=== PATIENT | male | born 1935 | race Hispanic/Latino ===

== ENCOUNTER 2017-04-10 12:20 | Inpatient (IN) | payer BC, MEDICARE ==
[2017-04-10] MEDS ORDERED: Vancomycin 1gm in NS 250ml 1 GM/250 ML BAG IVPB STA (12:47)
[2017-04-10 13:14] LABS: ADD MANUAL DIFF? NO
[2017-04-10 13:17] LABS: BASO # 0.02 K/mm3 (0.0-2.0); BASO % 0.3 % (0.0-3.0); EOS # 0.1 (0.0-0.7); EOS % 1.4 % (1.5-5.0); GRAN # 5.71 (1.4-6.5); GRAN % 78.1 % (50.0-68.0); HEMATOCRIT 41.8 % (42.0-52.0); LYMPH % 13.2 % (22.0-35.0); MEAN CELL VOLUME 91.9 fL (80.0-105.0); MEAN CORPUSCULAR HEMOGLOBIN 30.5 pg (25.0-35.0); MEAN CORPUSCULAR HGB CONC 33.3 g/dl (31.0-37.0); MEAN PLATELET VOLUME 9.9 fl (7.0-11.0); MONO # 0.5 (0.1-0.6); PLATELET COUNT 239 10^3/uL (120.0-450.0); RED CELL DISTRIBUTION WIDTH 13.4 % (11.5-14.5); WHITE BLOOD COUNT 7.3 10^3/ul (4.5-11.0)
[2017-04-10 13:26] LABS: ALKALINE PHOSPHATASE 110 U/L (38-133); ALT/SGPT 24 U/L (7-56); AST/SGOT 18 U/L (15-59); BLOOD UREA NITROGEN 20 mg/dL (7-21); CALCIUM 9.3 mg/dL (8.4-10.5); CARBON DIOXIDE 27 mmol/L (21-33); CHLORIDE 101 mmol/L (98-107); GFR AFRICAN-AMERICAN > 60; GLUCOSE,RANDOM 299 mg/dL (70-110); POTASSIUM 4.5 mmol/L (3.6-5.0); SODIUM 135 mmol/L (132-148); TOTAL PROTEIN 7.1 g/dL (5.8-8.3)
[2017-04-10 13:28] LABS: INR 1.19 (0.93-1.08); PARTIAL THROMBOPLASTIN TIME 28.7 Seconds (23.7-30.8)
--- NOTE | 2017-04-10 13:42 | ED PDOC ---
Arrival/HPI - General Chief Complaint: Abnormal Skin Integrity Time Seen by Provider: 04/10/17 12:38 Historian: Patient - History of Present Illness Narrative History of Present Illness (Text): 04/10/17 13:10 An 81 year old male, whose past medical history includes diabetes, presents to the emergency department with infected right index finger for the last 2 weeks. Patient notes cut finger but didn't have it checked out or taken care of. Patient reports increased redness and drainage. Patient denies any other complaints at this time. Time/Duration: Other (2 weeks) Symptom Onset: Sudden Symptom Course: Unchanged Context: Home Past Medical History - Provider Review Nursing Documentation Reviewed: Yes - Infectious Disease Hx of Infectious Diseases: None - Tetanus Immunization Tetanus Immunization: Unknown - Cardiac Hx Cardiac Disorders: Yes Hx Cardiac Arrhythmia: Yes (AFIB) Hx Pacemaker: No - Neurological Hx Paralysis: No - Endocrine/Metabolic Hx Diabetes Mellitus Type 2: Yes - Hematological/Oncological Hx Blood Transfusions: No Hx Blood Transfusion Reaction: No - Musculoskeletal/Rheumatological Hx Musculoskeletal Disorders: No - Psychiatric Hx Depression: No Hx Emotional Abuse: No Hx Physical Abuse: No Hx Substance Use: No - Anesthesia Hx Anesthesia: Yes Hx Anesthesia Reactions: No Hx Malignant Hyperthermia: No - Suicidal Assessment Feels Threatened In Home Enviroment: No Family/Social History - Physician Review Nursing Documentation Reviewed: Yes Family/Social History: No Known Family HX Smoking Status: Former Smoker Hx Alcohol Use: No Hx Substance Use: No Hx Substance Use Treatment: No Allergies/Home Meds Allergies/Adverse Reactions: Allergies No Known Allergies Allergy (Verified 04/10/17 12:22) Home Medications: Home Meds Medication Instructions Recorded Confirmed Glyburide/Metformin HCl 1 tab PO BID 03/03/13 04/10/17 [Glyburide/Metformin 5 mg-500 mg] Aspirin [Aspir 81] 81 mg PO PRN PRN 05/14/13 04/10/17 Metoprolol Succinate 50 mg PO DAILY 05/14/13 04/10/17 Apixaban [Eliquis] 5 mg PO BID 05/25/16 04/10/17 Lisinopril/Hydrochlorothiazide 1 tab PO DAILY 05/25/16 04/10/17 [Lisinopril-Hctz 20-25 mg Tab] Physical Exam - Physical Exam Narrative Physical Exam (Text): 04/10/17 13:43 - Review of Systems Constitutional: Normal. absent: Fatigue, Weight Change, Fevers Eyes: Normal ENT: Normal Respiratory: Normal absent: SOB, Cough, Sputum Cardiovascular: Normal absent: Chest pain, Palpitations, Syncope Gastrointestinal: Normal absent: Abdominal pain, Diarrhea, Nausea, Vomiting Genitourinary: Normal. absent: Dysuria, Frequency, Hematuria Musculoskeletal: Normal. absent: Arthralgias, Back Pain, Neck Pain Skin: infected right index finger, redness and drainage Neurological: Normal absent: Focal Weakness Endocrine: Normal Hemo/Lymphatic: Normal Psychiatric: Normal - Physical exam Patient appears age appropriate, speaking full sentences without difficulty - Systems Exam Head: Present: Atraumatic, Normocephalic Pupils: Present: PERRL Extraocular Muscles: Present: EOMI Conjunctiva: Present: Normal Mouth: Present: Moist Mucous Membranes Neck: Present: Normal Range of Motion. No: MIDLINE TENDERNESS, Paraspinal Tenderness Respiratory/Chest: Present: Clear to Auscultation, Good Air Exchange. No: Respiratory Distress, Accessory Muscle Use, Tachypnic Cardiovascular: Present: Regular Rate and Rhythm, Normal S1, S2, Peripheral Pulses Present. No: Murmurs Abdomen: Present: Normal Bowel Sounds, No: Tenderness, Peritoneal Signs, Rebound, Guarding, Distention Back: Present: Normal Inspection. No: Midline Tenderness, Paraspinal Tenderness Upper Extremity: Present: Normal Inspection. No: Cyanosis, Edema Lower Extremity: Present: Normal Inspection. No: Edema Neurological: Present: GCS=15, Speech Normal, cranial nerves II through XII fully intact with no cerebellar abnormality, neuro-sensory fully intact. No focal neurological deficits. Skin: Present: right index digit with distal phalanx diffuse fluctuance and drainage, no nail bed involvement, no pain or tenderness along flexor or extensor tendons, full active and passive ROM, 5/5 strength. No: Rashes Lymphatic: Present: OX3, NI, NC Psychiatric: Present: Alert, Oriented x 3, Normal Insight, Normal Concentration Vital Signs Reviewed: Yes Vital Signs Temp Pulse Resp BP Pulse Ox 04/10/17 14:37 76 18 150/81 98 04/10/17 13:05 97.4 F L 56 L 18 166/78 H 97 04/10/17 12:23 98.0 F 99 H 19 166/78 H 99 Temperature: Afebrile Blood Pressure: Hypertensive Pulse: Regular Respiratory Rate: Normal Appearance: Positive for: Well-Appearing, Non-Toxic, Comfortable Pain Distress: None Mental Status: Positive for: Alert and Oriented X 3 Medical Decision Making ED Course and Treatment: 04/10/17 13:38 Impression: An 81 year old male with infected right index finger. On physical exam, right index digit with distal phalanx diffuse fluctuance and drainage, no nail bed involvement, no pain or tenderness along flexor or extensor tendons, full active and passive ROM, 5/5 strength. Differential Diagnosis included but are not limited to: osteomyelitis Plan: -- Radiology Right hand 2nd digit -- MRI upper extremity -- labs -- Vancomycin -- Reassess and disposition Prior Visits: Notes and results from previous visits were reviewed. Patient last reported to the emergency department on 06/10/13 for evaluation of urinary retention. Progress Notes: Patient is aware that he will be admitted for surgical evaluation. Patient was seen by PMD Dr. Alfaro, who accepts patient under her service. Asked to take MRI to rule out osteomyelitis and to call Dr. Graves. Patient does not want pain medications at this time. Right Index finger radiographs Creator : Sheri Blackwood MD 04/10/2017 14:29 IMPRESSION: No acute fracture or dislocation. 04/10/17 14:40 pt refused MRI, states does not want sedatives and will not do it no callback from Dr. Graves yet glucose elevated, fluids ordered pt agrees with being admitted to the hospital Case discussed with Dr. Washington, who is aware Dr. Graves hasn't called back. Spoke with him and Dr. Linden Washington will be on consult. Dr. Washington will see patient tomorrow. - Lab Interpretations Lab Results: 04/10/17 13:05 04/10/17 13:05 Lab Results 04/10/17 13:05: Sodium 135, Potassium 4.5, Chloride 101, Carbon Dioxide 27, Anion Gap 12, BUN 20, Creatinine 1.0, Est GFR ( Amer) > 60, Est GFR (Non- Af Amer) > 60, Random Glucose 299 H, Calcium 9.3, Total Bilirubin 1.0, AST 18, ALT 24, Alkaline Phosphatase 110, Total Protein 7.1, Albumin 3.5, Globulin 3.6, Albumin/Globulin Ratio 1.0 L 04/10/17 13:05: PT 12.9 H, INR 1.19 H, APTT 28.7 04/10/17 13:05: WBC 7.3, RBC 4.55, Hgb 13.9 L, Hct 41.8 L, MCV 91.9, MCH 30.5, MCHC 33.3, RDW 13.4, Plt Count 239, MPV 9.9, Gran % 78.1 H, Lymph % (Auto) 13.2 L, Van Zandt % (Auto) 7.0 H, Eos % (Auto) 1.4 L, Baso % (Auto) 0.3, Gran # 5.71, Lymph # 1.0 L, [place]t # 0.5, Eos # 0.1, Baso # 0.02 I have reviewed the lab results: Yes - RAD Interpretation Radiology Orders: 04/10/17 12:47 HAND RIGHT 2ND DIGIT (FINGER) [RAD] Stat 04/10/17 15:20 EXT UPPER W/O CONTRAST RIGHT [CT] Stat - Medication Orders Current Medication Orders: Sodium Chloride (Sodium Chloride 0.9%) 1,000 mls @ 1,000 mls/hr IV .Q1H STA Stop: 04/10/17 15:32 Last Admin: 04/10/17 14:40 Dose: 1,000 mls/hr Discontinued Medications Vancomycin HCl (Vancomycin 1gm) 1 gm in 250 mls @ 133.333 mls/hr IVPB STAT STA PRN Reason: Protocol Stop: 04/10/17 14:39 Last Admin: 04/10/17 13:10 Dose: 133.333 mls/hr - Scribe Statement The provider has reviewed the documentation as recorded by the Jaycee Cox Provider Scribe Attestation: All medical record entries made by the Scribcarrie were at my direction and personally dictated by me. I have reviewed the chart and agree that the record accurately reflects my personal performance of the history, physical exam, medical decision making, and the department course for this patient. I have also personally directed, reviewed, and agree with the discharge instructions and disposition. Disposition/Present on Arrival - Present on Arrival Any Indicators Present on Arrival: No History of DVT/PE: No History of Uncontrolled Diabetes: No Urinary Catheter: No History of Decub. Ulcer: No History Surgical Site Infection Following: None - Disposition Have Diagnosis and Disposition been Completed?: Yes Diagnosis: Finger infection Disposition: HOSPITALIZED Disposition Time: 13:10 Patient Plan: Admission Patient Problems: Current Active Problems Problem Status Onset Finger infection Acute Condition: FAIR Referrals: Melissa Alfaro MD [Primary Care Provider] - Follow up with primary
--- NOTE | 2017-04-10 14:26 | RAD ---
PROCEDURE: Right Index finger radiographs. HISTORY: pain, infection COMPARISON: None. TECHNIQUE: AP radiograph of the right hand, as well as spot oblique and lateral images of index finger were obtained. FINDINGS: RIGHT INDEX FINGER: Normal right index finger, without fracture or focal lesion. Remainder of the right hand (as seen on the AP view) grossly intact. 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 SOFT TISSUES: There is mild soft tissue swelling in the distal 2nd finger. OTHER FINDINGS: None. IMPRESSION: No acute fracture or dislocation.
[2017-04-10] MEDS ORDERED: Sodium Chloride 0.9% 1,000 ML IV STA (14:33)
[2017-04-10] MEDS ORDERED: Non Formulary Medication (Glyburide/Metformin Hcl [Glyburide-Metformin 5-500 Mg] 1 TAB) PO SCH (18:15)
[2017-04-10] MEDS: Vancomycin 1gm in NS 250ml 1 GM/250 ML BAG IVPB SCH (18:40)
--- NOTE | 2017-04-10 18:56 | CT ---
EXAM: CT Right Upper Extremity Without Intravenous Contrast, Hand CLINICAL HISTORY: The patient age is 81 years old and is male; Signs and symptoms; Other: Infection to right 2nd digit; Additional info: Bettina Cole, infection Facility exam id and description: Ct extupsr ext upper w/o contrast right TECHNIQUE: Axial computed tomography images of the right hand without intravenous contrast. This CT exam was performed using one or more of the following dose reduction techniques: automated exposure control, adjustment of the mA and/or kV according to patient size, and/or use of iterative reconstruction technique. Coronal and sagittal reformatted images were created and reviewed. EXAM DATE/TIME: 04/10/2017 3:20 PM COMPARISON: CR - HAND RIGHT 2ND DIGIT (FINGER) 04/10/2017 1:26:26 PM FINDINGS: Bones/joints: There is mild widening of the scapholunate joint space, suggestive of ligamentous injury. No definitive erosive changes are identified involving the second digit. Hypertrophic degenerative changes are identified at the second through fifth DIP joints. Hypodense cysts are visualized within the first and third metacarpal heads. Within the third metacarpal head, this measures 1.0 x 0.6 x 0.6 cm. Hypertrophic degenerative changes are identified involving the first and third metacarpal heads. Soft tissues: There is a tissue swelling of the second digit, consistent with cellulitis in the appropriate clinical setting. There is a tiny defect or erosion of the soft tissues at the lateral aspect of the second digit. There is a small calcification or foreign body at the skin surface of the palmar lateral hand measuring 0.[address] is limited for the evaluation of the ligaments and tendons. Other findings: Scattered tiny calcifications or ossicles are identified. IMPRESSION: 1. There is a tissue swelling of the second digit, consistent with cellulitis in the appropriate clinical setting. There is a tiny defect or erosion of the soft tissues at the lateral aspect of the second digit. 2. There is mild widening of the scapholunate joint space, suggestive of ligamentous injury. 3. There is a small calcification or foreign body at the skin surface of the palmar lateral hand measuring 0.3 x 0.1 cm. 4. No definitive erosive changes are identified involving the second digit. To exclude osteomyelitis, MRI with/without contrast is recommended. 5. Additional CT findings described above.
[2017-04-10] MEDS ORDERED: Povidone Iodine Topical 10% Sol TOP ONE (20:35)
--- NOTE | 2017-04-10 21:30 | HP ---
HISTORY OF PRESENT ILLNESS: The patient is an 81-year-old who states almost a week ago he got to a c ut on his right index finger. He did not pay much attention, thought it was going to get better, did not really take care of it. The patient is a poorly controlled diabetic. He states yesterday he st arted to see swelling to the area and that it became painful. He denies any fever or chills. No his tory of nausea or vomiting. PAST MEDICAL HISTORY: 1. Significant for chronic atrial fibrillation. 2. Non-insulin dependent diabetes. 3. Morbid obesity. 4. History of CA, status post resection. 5. History of coronary artery disease, status post angioplasty. 6. Nephrolithiasis, had urosepsis 2 years ago. 7. Hypertension. ALLERGIES: Not allergic to any medications. MEDICATIONS AT HOME: He is on lisinopril 20 mg daily, metformin 500 twice a day, glyburide 10 mg twi ce a day. He is on Eliquis 5 mg twice a day, aspirin 81 daily, metoprolol 50 mg daily. SOCIAL HISTORY: He is single, lives by himself. He used to be a heavy smoker in the past. Denies a lcohol use. REVIEW OF SYSTEMS: Significant for right index finger pain and swelling. The feels fine. PHYSICAL EXAMINATION: GENERAL: She is awake and alert, communicative. VITAL SIGNS: He is afebrile, pulse 80, respirations 16, blood pressure 122/96. LUNGS: Bilateral fair airflow, no rhonchi or crackle. HEART: S1, S2 audible. ABDOMEN: Soft, nontender, no rebound, no guarding. NEUROLOGIC: The patient is awake and alert, communicative. RIGHT HAND: His index finger is swollen distally from the interphalangeal joint up to the tip of the finger with erythema and induration. LABORATORY DATA: WBC , hemoglobin 13.9, hematocrit 41.8, platelet of 239. PT 12.9, INR 1.19. Chemistry: Sodium 135, potassium 4.5, chloride 101, CO2 27, BUN 20, creatinine 1.0, blood sugar ____ _. LFTs are within normal limits. IMAGING: X-ray of the hand: No fracture or dislocation. CT scan of the hand is pending. The patie nt refused to have MRI done. ASSESSMENT: 1. Right index finger cellulitis. 2. Non-insulin dependent diabetes. 3. Hypertension. 4. Hyperlipidemia. 5. Coronary artery disease. PLAN: Will apply Bactroban to the wound. Will start him on IV antibiotic. Will continue him on his Eliquis. Monitor blood sugar and ID consult by Dr. Callejas has been requested. Surgical consult by Dr. Suazo has been requested. Melissa Alfaro MD cc: [phone] TT: 04/10/2017 21:29:19 thomas
[2017-04-10 21:39] VITALS: BMI 34.9
[2017-04-10] MEDS ORDERED: Pneumococcal 23-Valent Vaccine IM ONE (21:39)
[2017-04-10] MEDS ORDERED: TDAP Vaccine 0.5 mL Syr IM ONE (22:08)
[2017-04-10] MEDS ORDERED: Tetanus Immune Globulin 250 Units Inj IM ONE (22:08)
--- NOTE | 2017-04-10 22:08 | CP.PCM.CON ---
History of Present Illness - History of Present Illness History of Present Illness: General Surgery consult note for Dr. Suazo Consulted for: abscess Right index finger Patient is an 81M with PMH of NIDDM and afib who is on eliquis who came to the ER with a swollen, painful finger for 10 days. Patient stated that he thinks he sustained a paper cut on his lateral right distal index finger 2 weeks ago, but didn't clean it or treat it with any antibiotic ointment. He noticed it getting red and swollen and more painful around the in a few days later. Today the patient noticed that the swelling has spread to the dorsal side of this finger near the finger nail and decided he [facility]. Patient states that the laceration has been draining pus and blood for a few days. Patient denies any fevers, chills, SOB, numbness, tingling, or paralysis in the finger or hand. Patient does not remember when he last had a tetanus shot. Patient refused to submit to the MRI, so a CT of the hand was takent PMH: NIDDM, afib PSH: none ALL: none Patient is afebrile, vital signs are stable WBC wnl XR of the right hand did not show any foreign bodies in the right second digit CT of the hand showed cellulitis of the distal second digit of the right hand but no sign osteomyolitis or tendon involvement Review of Systems - Review of Systems All systems: reviewed and no additional remarkable complaints except (as per HPI ) - Constitutional Constitutional: As Per HPI - Cardiovascular Cardiovascular: absent: Chest Pain, Chest Pain at Rest, Dyspnea - Respiratory Respiratory: absent: Cough, Dyspnea, Wheezing - Gastrointestinal Gastrointestinal: absent: Abdominal Pain, Nausea, Vomiting - Genitourinary Genitourinary: Hematuria - Musculoskeletal Musculoskeletal: As Per HPI. absent: Muscle Weakness - Integumentary Integumentary: As Per HPI, Wounds (as per HPI). absent: Rash - Neurological Neurological: As Per HPI Past Patient History - Infectious Disease Hx of Infectious Diseases: None - Tetanus Immunizations Tetanus Immunization: Unknown - Past Medical History & Family History Past Medical History?: Yes - Past Social History Smoking Status: Former Smoker - CARDIAC Hx Cardiac Disorders: Yes (cad) Hx Cardia Arrhythmia: Yes (AFIB) Hx Pacemaker: No Hx Peripheral Edema: Yes (ble +1 pitting) - NEUROLOGICAL Hx Paralysis: No - RENAL Hx Kidney Stones: Yes (lithotripsy [facility]) - ENDOCRINE/METABOLIC Hx Diabetes Mellitus Type 2: Yes - HEMATOLOGICAL/ONCOLOGICAL Hx Blood Transfusions: No Hx Blood Transfusion Reaction: No - INTEGUMENTARY Other/Comment: discolored legs - MUSCULOSKELETAL/RHEUMATOLOGICAL Hx Falls: No - GENITOURINARY/GYNECOLOGICAL Hx Genitourinary Disorders: Yes (frequency, bladder stone) Hx Hematuria: Yes (3 or 4 yrs ago) Hx Prostate Problems: Yes (prostate obstruction) Other/Comment: cysto 2012 - PSYCHIATRIC Hx Substance Use: No - SURGICAL HISTORY Hx Surgeries: Yes (EXC LESION RIGHT ARM) Other/Comment: turp green light laser - ANESTHESIA Hx Anesthesia: Yes Hx Anesthesia Reactions: No Hx Malignant Hyperthermia: No Meds Allergies/Adverse Reactions: Allergies Allergy/AdvReac Type Severity Reaction Status Date / Time No Known Allergies Allergy Verified 04/10/17 12:22 - Medications Medications: Current Medications Apixaban (Eliquis) 5 mg PO BID DAVID PRN Reason: Protocol Last Admin: 04/10/17 18:46 Dose: 5 mg Aspirin (Ecotrin) 81 mg PO DAILY [facility] Glyburide (Micronase) 5 mg PO 0800,1700 [facility] Vancomycin HCl (Vancomycin 1gm) 1 gm in 250 mls @ 167 mls/hr IVPB Q12H DAVID PRN Reason: Protocol Last Admin: 04/10/17 18:40 Dose: Not Given Piperacillin Sod/Tazobactam Sod (Zosyn 3.375 In Ns 100ml) 100 mls @ 200 mls/hr IVPB Q8 DAVID PRN Reason: Protocol Stop: 04/11/17 06:29 Insulin Human Lispro (Humalog Med) 0 units SC ACHS DAVID PRN Reason: Protocol Metformin HCl (Glucophage) 500 mg PO 0800,1700 [facility] Metoprolol Succinate (Toprol Xl) 50 mg PO DAILY [facility] Mupirocin (Bactroban Ointment) 0 gm TOP BID [facility] Physical Exam - Constitutional Appears: Well, Non-toxic, No Acute Distress - Head Exam Head Exam: ATRAUMATIC, NORMOCEPHALIC - Eye Exam Eye Exam: Normal appearance. absent: Conjunctival injection, Scleral icterus - ENT Exam ENT Exam: Mucous Membranes Moist, Normal Oropharynx - Respiratory Exam Respiratory Exam: NORMAL BREATHING PATTERN. absent: Accessory Muscle Use, Respiratory Distress - Cardiovascular Exam Cardiovascular Exam: RRR - GI/Abdominal Exam GI & Abdominal Exam: absent: Distended - Expanded Upper Extremities Exam Right General: laceration (3mm laceration in the thenar side of the distal 2nd digit of the right hand. Subcutaneous fluid/blood appreciated with fluctuance from the dorsal surfance just proximal to the nail extending circumferentially 2/3's fo the finger to the volar surface. Erythema well demarcated on and limited distal to DIP joint. Sero-purulent drainage expressible from the laceration. ROM mildly limited on flexion d/t swelling but extension intact, normal strength against resistence) Vascular exam: radial pulse, ulnar pulse, normal capillary refill. absent: pallor, pulse deficit brachial art, pulse deficit radial art - Neurological Exam Neurological exam: Alert, Oriented x3 - Psychiatric Exam Psychiatric exam: Normal Affect, Normal Mood - Skin Skin Exam: Dry, Normal Color, Warm Additional comments: see upper extremity exam Results - Vital Signs Recent Vital Signs: Last Vital Signs Temp 98 F 04/10/17 21:31 Pulse 80 04/10/17 21:31 Resp 16 04/10/17 21:31 BP 122/96 H 04/10/17 21:31 Pulse Ox 99 04/10/17 16:54 - Labs Result Diagrams: 04/10/17 13:05 04/10/17 13:05 Assessment & Plan - Assessment and Plan (Free Text) Assessment: 81M with PMH of diabetes with abcess/hematoma of right index finger for 10days afebrile, normocardic WBC wnl CT: no sign of osteomyelitis or tendonitis Plan: performed a bedside I&D of the abscess with sero-purulent output continue antibiotics per ID recommendations f/u wound culture results soak in betadine solution in the morning f/u labs and vitals Will re-assess in the AM Patient discussed with Dr. Suazo Thank you for this consult Rosa Brady, PGY1
[2017-04-10] MEDS: Insulin Lispro (humaLOG) MEDIUM Coverage SC SCH (22:30)
[2017-04-10] MEDS: Piperacillin/Tazobact 3.375 gm 100 ML IVPB SCH (22:33)
--- NOTE | 2017-04-11 00:54 | PCM.PROC ---
- Incision & Drainage Of Abscess Prep Used: Sterile Water, Betadine Procedure: Drained Pus, Irrigated Cavity W/Saline (with betadine-NS solution), Probed To Break Up Loculations (dorsal extension of right distal second finger abscess pierced with an 18guage needle just deep to the epidermis x3. Laceration on the lateral aspect of the finger was extended with scissors just below the epidermis towards the palmar and dorsal surface until all subcutaneous fluid collections were drained), Cultures Obtained And Sent To Lab
[2017-04-11] MEDS: Piperacillin/Tazobact 3.375 gm 100 ML IVPB SCH (05:29)
[2017-04-11] MEDS: Vancomycin 1gm in NS 250ml 1 GM/250 ML BAG IVPB SCH (05:31)
[2017-04-11 07:07] LABS: ADD MANUAL DIFF? NO
[2017-04-11 07:12] LABS: BASO # 0.01 K/mm3 (0.0-2.0); BASO % 0.1 % (0.0-3.0); EOS # 0.1 (0.0-0.7); EOS % 1.3 % (1.5-5.0); GRAN # 6.23 (1.4-6.5); GRAN % 79.2 % (50.0-68.0); HEMATOCRIT 40.5 % (42.0-52.0); LYMPH % 12.5 % (22.0-35.0); MEAN CELL VOLUME 90.8 fL (80.0-105.0); MEAN CORPUSCULAR HGB CONC 33.1 g/dl (31.0-37.0); MEAN PLATELET VOLUME 9.3 fl (7.0-11.0); MONO # 0.5 (0.1-0.6); MONO % 6.9 % (1.0-6.0); PLATELET COUNT 231 10^3/uL (120.0-450.0); RED CELL DISTRIBUTION WIDTH 13.4 % (11.5-14.5); WHITE BLOOD COUNT 7.9 10^3/ul (4.5-11.0)
[2017-04-11 07:22] LABS: ALKALINE PHOSPHATASE 81 U/L (38-133); ALT/SGPT 30 U/L (7-56); AST/SGOT 18 U/L (15-59); BILIRUBIN,TOTAL 0.7 mg/dL (0.2-1.3); BLOOD UREA NITROGEN 17 mg/dL (7-21); CARBON DIOXIDE 25 mmol/L (21-33); CHLORIDE 104 mmol/L (95-110); GFR AFRICAN-AMERICAN > 60; GLUCOSE,RANDOM 76 mg/dL (70-110); POTASSIUM 3.6 mmol/L (3.6-5.0); SODIUM 138 mmol/L (132-148); TOTAL PROTEIN 6.8 g/dL (5.8-8.3)
[2017-04-11] MEDS: Insulin Lispro (humaLOG) MEDIUM Coverage SC SCH ×4 (09:51→22:31)
[2017-04-11] MEDS: Metoprolol Succinate 50 mg XL Tab PO SCH (10:03)
--- NOTE | 2017-04-11 11:00 | CP.PCM.PN ---
Subjective - Date & Time of Evaluation Date of Evaluation: 04/11/17 Time of Evaluation: 06:48 - Subjective Subjective: Erick Hollins D.O. PGY-1, General Surgery Progress Note: Dr. Lakeisha Harris. 81 year old male with a PMH of NIDDM and A-fib (on eliquis) who presented for a swollen, painful finger for 10 days duration. Patient was seen and examined at bedside with surgery team. Patient at this time states that his finger is doing much, much better and he is happy that he came in. Patient at this time denies any N/V/C/D/fevers/chills or any other complaints other than some mild pain to the finger which is well controlled on his current pain regimen. Objective - Vital Signs/Intake and Output Vital Signs (last 24 hours): Temp Pulse Resp BP Pulse Ox 97.8 F 60 20 148/93 H 97 04/11/17 08:54 04/11/17 08:54 04/11/17 08:54 04/11/17 08:54 04/11/17 08:54 Intake and Output: 04/11/17 04/11/17 06:59 18:59 Intake Total 630 Balance 630 - Medications Medications: Current Medications Acetaminophen (Tylenol 325mg Tab) 650 mg PO Q6H PRN PRN Reason: Pain, moderate (4-7) Apixaban (Eliquis) 5 mg PO BID DAVID PRN Reason: Protocol Last Admin: 04/11/17 10:03 Dose: 5 mg Aspirin (Ecotrin) 81 mg PO DAILY [facility] Last Admin: 04/11/17 10:03 Dose: 81 mg Glyburide (Micronase) 5 mg PO 0800,1700 [facility] Last Admin: 04/11/17 10:03 Dose: 5 mg Ceftaroline Fosamil 400 mg/ (Sodium Chloride) 100 mls @ 100 mls/hr IVPB Q12 DAVID PRN Reason: Protocol Stop: 04/18/17 06:47 Last Admin: 04/11/17 10:11 Dose: 100 mls/hr Insulin Human Lispro (Humalog Med) 0 units SC ACHS DAVID PRN Reason: Protocol Last Admin: 04/11/17 09:51 Dose: Not Given Metformin HCl (Glucophage) 500 mg PO 0800,1700 [facility] Last Admin: 04/11/17 10:03 Dose: 500 mg Metoprolol Succinate (Toprol Xl) 50 mg PO DAILY [facility] Last Admin: 04/11/17 10:03 Dose: 50 mg Mupirocin (Bactroban Ointment) 0 gm TOP BID [facility] Last Admin: 04/11/17 10:02 Dose: Not Given - Labs Labs: 04/11/17 06:40 04/11/17 06:40 PT 12.9 Seconds (9.9-11.8) H 04/10/17 13:05 INR 1.19 (0.93-1.08) H 04/10/17 13:05 APTT 28.7 Seconds (23.7-30.8) 04/10/17 13:05 - Constitutional Appears: Well developed, Non-toxic, No Acute Distress - Head Exam Head Exam: ATRAUMATIC, NORMOCEPHALIC - Eye Exam Eye Exam: Normal appearance. absent: Conjunctival injection, Scleral icterus - ENT Exam ENT Exam: Mucous Membranes Moist, Normal Oropharynx - Respiratory Exam Respiratory Exam: NORMAL BREATHING PATTERN. absent: Accessory Muscle Use, Respiratory Distress - Cardiovascular Exam Cardiovascular Exam: RRR - GI/Abdominal Exam GI & Abdominal Exam: absent: Distended - Expanded Upper Extremities Exam Right General: ~4mm laceration in the thenar side of the distal 2nd digit of the right hand with some subcutaneous tissue visualized, some pus is expressible, mild erythema and swelling of the surrounding area, areas previously marked - Neurological Exam Neurological exam: Alert, Oriented x3 - Skin Skin Exam: Dry, Normal Color, Warm, refer to RUE exam for abnormalities Assessment and Plan - Assessment and Plan (Free Text) Assessment: 81 year old male with a PMH of NIDDM and A-fib (on eliquis) who presented with an abscess on his right index finger s/p laceration with paper. Plan: Cont IV abx Cont pain control Will do TID diluted betadine solution finger soaks for 15 minutes then re- wrapping WCx pending, will follow Afebrile with no leukocytosis Other management per primary team Will discuss with attending physician. Thank you for the pleasure of participating in the care of this patient.
--- NOTE | 2017-04-11 14:49 | PN ---
DATE: 04/11/2017 SUBJECTIVE: The patient is 81 years old, seen and examined, lying in bed, seems to be very comfortab le. He said his throbbing pain in the finger has almost gone. PHYSICAL EXAMINATION: VITAL SIGNS: He is afebrile, pulse 60, respirations 20, blood pressure 148/93. LUNGS: Bilateral fair airflow. No rhonchi or crackle. HEART: S1, S2 audible. ABDOMEN: Soft, obese, nontender. No rebound, no guarding. NEUROLOGIC: He is awake, and alert, able to communicate. LABORATORY EXAMINATION: WBC 7.9, hemoglobin 13.4, hematocrit 40.5, platelets of 231. Chemistry: So dium 138, potassium 3.6, chloride 104, CO2 of 25, BUN 17, creatinine 1.0, blood sugar of 76. ASSESSMENT AND PLAN: 1. Right index finger cellulitis, status post incision and drainage. 2. Non-insulin dependent diabetes. 3. Hypertension. 4. Morbid obesity. 5. Chronic atrial fibrillation. The patient had incision and drainage done. Currently, he is on Teflaro. Blood sugar seems to be un danny decent control, so is the blood pressure. So we will continue local wound care, as per surgical team. Will continue on Eliquis. He is on metformin 500 twice a day and glyburide 5 mg twice a day. We will continue that. We will continue Teflaro, and reevaluate the patient in a.m. Melissa Alfaro MD cc: [phone] TT: 04/11/2017 14:49:15 Confirmation # [id number] Dictation # [id number] cortez
[2017-04-11] MEDS ORDERED: Lidocaine 1% Inj (20ml) IJ STA (14:54)
--- NOTE | 2017-04-11 18:53 | CP.PCM.CON ---
History of Present Illness - History of Present Illness History of Present Illness: 81 year old male with PMH of DM, atrial fibrillation, obesity with BMI 35 came in to [facility] complaining of right hand 2nd digit pain and swelling which was progressively worsening over a week. He states that he sustained a papercut and did not mind it and was not able to clean and sterilize the wound. Over the next few days, he noticed swelling and erythema and pain. The patient denies animal contacts, denies soiling his finger. He denies fever or chills, no nausea or vomiting, no chest pain, no SOB, no headache or dizziness, no abdominal pain, no diarrhea, no dysuria. In the ED, CT of the hand showed cellulitis of the finger. Last night, the patient underwent bedside incision and drainage as done by surgery and pus was sent for cultures. Infectious diseases consult is requested to further evaluate and manage. Review of Systems - Review of Systems All systems: reviewed and no additional remarkable complaints except (as per HPI ) Past Patient History - Infectious Disease Hx of Infectious Diseases: None - Tetanus Immunizations Tetanus Immunization: Unknown - Past Medical History & Family History Past Medical History?: Yes - Past Social History Smoking Status: Former Smoker - CARDIAC Hx Cardiac Disorders: Yes (cad) Hx Cardia Arrhythmia: Yes (AFIB) Hx Pacemaker: No Hx Peripheral Edema: Yes (ble +1 pitting) - NEUROLOGICAL Hx Paralysis: No - RENAL Hx Kidney Stones: Yes (lithotripsy [facility]) - ENDOCRINE/METABOLIC Hx Diabetes Mellitus Type 2: Yes - HEMATOLOGICAL/ONCOLOGICAL Hx Blood Transfusions: No Hx Blood Transfusion Reaction: No - INTEGUMENTARY Other/Comment: discolored legs - MUSCULOSKELETAL/RHEUMATOLOGICAL Hx Falls: No - GENITOURINARY/GYNECOLOGICAL Hx Genitourinary Disorders: Yes (frequency, bladder stone) Hx Hematuria: Yes (3 or 4 yrs ago) Hx Prostate Problems: Yes (prostate obstruction) Other/Comment: cysto 2012 - PSYCHIATRIC Hx Substance Use: No - SURGICAL HISTORY Hx Surgeries: Yes (EXC LESION RIGHT ARM) Other/Comment: turp green light laser - ANESTHESIA Hx Anesthesia: Yes Hx Anesthesia Reactions: No Hx Malignant Hyperthermia: No Meds Allergies/Adverse Reactions: Allergies Allergy/AdvReac Type Severity Reaction Status Date / Time No Known Allergies Allergy Verified 04/10/17 12:22 - Medications Medications: Current Medications Acetaminophen (Tylenol 325mg Tab) 650 mg PO Q6H PRN PRN Reason: Pain, moderate (4-7) Apixaban (Eliquis) 5 mg PO BID DAVID PRN Reason: Protocol Last Admin: 04/10/17 18:46 Dose: 5 mg Aspirin (Ecotrin) 81 mg PO DAILY [facility]ID Glyburide (Micronase) 5 mg PO 0800,1700 [facility] Ceftaroline Fosamil 400 mg/ (Sodium Chloride) 100 mls @ 100 mls/hr IVPB Q12 DAVID PRN Reason: Protocol Stop: 04/18/17 06:47 Insulin Human Lispro (Humalog Med) 0 units SC ACHS DAVID PRN Reason: Protocol Last Admin: 04/10/17 22:30 Dose: Not Given Metformin HCl (Glucophage) 500 mg PO 0800,1700 [facility] Metoprolol Succinate (Toprol Xl) 50 mg PO DAILY [facility] Mupirocin (Bactroban Ointment) 0 gm TOP BID [facility] Physical Exam - Constitutional Appears: Non-toxic, No Acute Distress - Neck Exam Neck exam: Negative for: Lymphadenopathy, Meningismus - Respiratory Exam Respiratory Exam: Decreased Breath Sounds - Cardiovascular Exam Cardiovascular Exam: +S1, +S2 - GI/Abdominal Exam GI & Abdominal Exam: Soft. absent: Tenderness - Extremities Exam Additional comments: right finger with dry dressings in place Results - Vital Signs Recent Vital Signs: Last Vital Signs Temp 98 F 04/10/17 21:31 Pulse 80 04/10/17 21:31 Resp 16 04/10/17 21:31 BP 122/96 H 04/10/17 21:31 Pulse Ox 99 04/10/17 16:54 - Labs Result Diagrams: 04/11/17 06:40 04/11/17 06:40 Assessment & Plan - Assessment and Plan (Free Text) Plan: Assessment Right 2nd finger abscess / purulent skin and skin structure infection S/P I and D POD #1 DM atrial fibrillation obesity with BMI 35 Plan started patient on Teflaro pending blood and cultures from the finger will monitor clinically
[2017-04-12] MEDS: Insulin Lispro (humaLOG) MEDIUM Coverage SC SCH ×4 (08:36→21:52)
[2017-04-12] MEDS: Metoprolol Succinate 50 mg XL Tab PO SCH (09:45)
--- NOTE | 2017-04-12 12:16 | CP.PCM.PN ---
Subjective - Date & Time of Evaluation Date of Evaluation: 04/12/17 Time of Evaluation: 07:38 - Subjective Subjective: Erick Hollins D.O. PGY-1, General Surgery Progress Note: Dr. Lakeisha Harris. 81 year old male with a PMH of NIDDM and A-fib (on eliquis) who presented for a swollen, painful finger for 10 days duration. Patient was seen and examined at bedside with surgery team. Patient is doing very well, states that his pain is minimal and well controlled on the current pain regimen. No fevers/chills/N/V/D/ C or other complaints. Objective - Vital Signs/Intake and Output Vital Signs (last 24 hours): Temp Pulse Resp BP Pulse Ox 97.4 F L 67 16 130/62 95 04/12/17 07:30 04/12/17 09:45 04/12/17 07:30 04/12/17 09:45 04/12/17 07:30 Intake and Output: 04/12/17 04/12/17 06:59 18:59 Intake Total 760 Balance 760 - Medications Medications: Current Medications Acetaminophen (Tylenol 325mg Tab) 650 mg PO Q6H PRN PRN Reason: Pain, moderate (4-7) Apixaban (Eliquis) 5 mg PO BID DAVID PRN Reason: Protocol Last Admin: 04/12/17 09:45 Dose: 5 mg Aspirin (Ecotrin) 81 mg PO DAILY [facility] Last Admin: 04/12/17 09:45 Dose: 81 mg Glyburide (Micronase) 5 mg PO 0800,1700 [facility] Last Admin: 04/12/17 08:46 Dose: 5 mg Ceftaroline Fosamil 400 mg/ (Sodium Chloride) 100 mls @ 100 mls/hr IVPB Q12 DAVID PRN Reason: Protocol Stop: 04/18/17 06:47 Last Admin: 04/12/17 09:46 Dose: 100 mls/hr Insulin Human Lispro (Humalog Med) 0 units SC ACHS DAVID PRN Reason: Protocol Last Admin: 04/12/17 08:36 Dose: Not Given Metformin HCl (Glucophage) 500 mg PO 0800,1700 [facility] Last Admin: 04/12/17 08:46 Dose: 500 mg Metoprolol Succinate (Toprol Xl) 50 mg PO DAILY [facility] Last Admin: 04/12/17 09:45 Dose: 50 mg - Labs Labs: 04/11/17 06:40 04/11/17 06:40 PT 12.9 Seconds (9.9-11.8) H 04/10/17 13:05 INR 1.19 (0.93-1.08) H 04/10/17 13:05 APTT 28.7 Seconds (23.7-30.8) 04/10/17 13:05 - Constitutional Appears: Well developed, Non-toxic, No Acute Distress - Head Exam Head Exam: ATRAUMATIC, NORMOCEPHALIC - Eye Exam Eye Exam: Normal appearance. absent: Conjunctival injection, Scleral icterus - ENT Exam ENT Exam: Mucous Membranes Moist, Normal Oropharynx - Respiratory Exam Respiratory Exam: NORMAL BREATHING PATTERN. absent: Accessory Muscle Use, Respiratory Distress - Cardiovascular Exam Cardiovascular Exam: RRR - GI/Abdominal Exam GI & Abdominal Exam: absent: Distended - Expanded Upper Extremities Exam General: unchanged laceration on thenar side of the distal 2nd digit of the right hand, dipped in diluted iodine solution for 15 minutes with packing placed over top and then re-wrapped - Neurological Exam Neurological exam: Alert, Oriented x3 - Skin Skin Exam: Dry, Normal Color, Warm, refer to RUE exam for abnormalities Assessment and Plan - Assessment and Plan (Free Text) Assessment: 81 year old male with a PMH of NIDDM and A-fib (on eliquis) who presented with an abscess on his right index finger s/p laceration with paper, Plan: Cont IV abx, on ceftaroline Pain well controlled at this time Cont BID betadine soaks WCx shows MSSA Afebrile with no leukocytosis Other management per primary team Discussed with attending physician. Thank you for the pleasure of participating in the care of this patient.
--- NOTE | 2017-04-12 12:48 | PN ---
DATE: 04/12/2017 SUBJECTIVE: The patient is an 81-year-old, seen and examined. He states his finger pain is much bet ter. He is being cared for by surgical team and dressing being changed. PHYSICAL EXAMINATION: GENERAL: He is awake and alert, communicative. VITAL SIGNS: He is afebrile, pulse 67, respirations 16, blood pressure 130/62. LUNGS: Bilateral fair airflow, no rhonchi or crackle. HEART: S1, S2 audible. ABDOMEN: Soft, nontender, no rebound, no guarding. NEUROLOGIC: The patient is awake and alert, able to communicate, ambulatory. LABORATORY EXAM: The patient had CT scan of head done on 04/10 that shows cellulitis of the right in dex finger, tiny defect or erosion of soft tissue at the lateral aspect of the second digit and mild widening of scapholunate joint and small calcification of foreign body at the skin surface of the pal mar aspect. ASSESSMENT: 1. Right index finger cellulitis, improving, status post incision and drainage. 2. Non-insulin dependent diabetes. 3. Hypertension. 4. Morbid obesity. 5. Chronic atrial fibrillation. PLAN: The patient is currently on Teflaro. His blood sugar is being monitored. I discussed with e surgical team, packing will be removed. Continue IV antibiotic. His wound will be reevaluated in a.m. and will make discharge plan in a.m. Discussed with the patient that he needs further wound car e. He says he is capable of taking care of his wound himself, does not need a visiting nurse and he will follow with Dr. Suazo and myself as outpatient to keep an eye on the wound. We also discu ssed that we might have to do MRI to see if there is no underlying bone infection; but he is adamant, he is claustrophobic, he does not want to have MRI done. Melissa Alfaro MD cc: [phone] TT: 04/12/2017 12:47:42 Confirmation # [id number] Dictation # [id number] cortez
--- NOTE | 2017-04-12 16:42 | PN ---
DATE: 04/12/2017 The patient is in bed in no acute distress, nontoxic. PHYSICAL EXAMINATION: VITAL SIGNS: Temperature is 98, blood pressure is 130/60, respiratory rate of 18, heart rate of 67. HEENT: Unremarkable. NECK: Supple. LUNGS: Decreased breath sounds. HEART: Normal S1, S2. ABDOMEN: Soft, nontender. LABORATORY EXAMINATION: Reveals the patient's white count is 7.9, hemoglobin of 13, platelets of 231 . Chemistries are noted. BUN of 17, creatinine of 1.0. Microbiology reveals Staph aureus from the abscess culture, it is sensitive to oxacillin. Review of orders reveals the patient to be on Augmentin at this point. ASSESSMENT AND PLAN: An 81-year-old male who was seen early this morning in 565 with a right second finger sensitive Staphylococcus aureus abscess, status post incision and drainage post-procedure day #2 and to complete with p.o. Augmentin as ordered by nurse practitioner. Marin Callejas MD cc: [phone] TT: 04/12/2017 16:41:28 Confirmation # [id number] Dictation # [id number]
[2017-04-12 17:37] VITALS: RESP 20
[2017-04-13 07:53] VITALS: BP 114/75; PULSE 64; TEMP 98.7; O2SAT 98
[2017-04-13] MEDS: Insulin Lispro (humaLOG) MEDIUM Coverage SC SCH ×2 (08:41→11:46)
--- NOTE | 2017-04-13 10:20 | CP.PCM.PN ---
Subjective - Date & Time of Evaluation Date of Evaluation: 04/13/17 Time of Evaluation: 07:00 - Subjective Subjective: General Surgery Progress Note for Dr. Suazo Patient seen and examined at bedside. No acute events overnight. Patient is tolerating pain well. Patient understand the instruction of wound dressing change at home. He denies headache, fever, chills, shortness of breath, coughs, chest pain, nausea, vomiting, or diarrhea. Objective - Vital Signs/Intake and Output Vital Signs (last 24 hours): Temp Pulse Resp BP Pulse Ox 98.7 F 64 20 114/75 98 04/13/17 07:30 04/13/17 07:30 04/13/17 07:30 04/13/17 07:30 04/13/17 07:30 Intake and Output: 04/13/17 04/13/17 06:59 18:59 Intake Total 1320 Output Total 200 Balance 1120 - Medications Medications: Current Medications Acetaminophen (Tylenol 325mg Tab) 650 mg PO Q6H PRN PRN Reason: Pain, moderate (4-7) Amoxicillin/Clavulanate Potassium (Augmentin 875 Mg-125 Mg Tab) 1 tab PO Q12 DAVID PRN Reason: Protocol Stop: 04/23/17 05:00 Apixaban (Eliquis) 5 mg PO BID DAVID PRN Reason: Protocol Last Admin: 04/12/17 18:51 Dose: 5 mg Aspirin (Ecotrin) 81 mg PO DAILY [facility] Last Admin: 04/12/17 09:45 Dose: 81 mg Glyburide (Micronase) 5 mg PO 0800,1700 [facility] Last Admin: 04/12/17 18:51 Dose: 5 mg Ceftaroline Fosamil 400 mg/ (Sodium Chloride) 100 mls @ 100 mls/hr IVPB Q12 DAVID PRN Reason: Protocol Stop: 04/18/17 06:47 Last Admin: 04/12/17 21:52 Dose: 100 mls/hr Insulin Human Lispro (Humalog Med) 0 units SC ACHS DAVID PRN Reason: Protocol Last Admin: 04/13/17 08:41 Dose: Not Given Metformin HCl (Glucophage) 500 mg PO 0800,1700 [facility] Last Admin: 04/12/17 18:51 Dose: 500 mg Metoprolol Succinate (Toprol Xl) 50 mg PO DAILY [facility] Last Admin: 04/12/17 09:45 Dose: 50 mg - Labs Labs: 04/11/17 06:40 04/11/17 06:40 PT 12.9 Seconds (9.9-11.8) H 04/10/17 13:05 INR 1.19 (0.93-1.08) H 04/10/17 13:05 APTT 28.7 Seconds (23.7-30.8) 04/10/17 13:05 - Constitutional Appears: Well, Non-toxic, No Acute Distress - Head Exam Head Exam: ATRAUMATIC, NORMAL INSPECTION - Eye Exam Eye Exam: EOMI, Normal appearance - ENT Exam ENT Exam: Mucous Membranes Moist - Respiratory Exam Respiratory Exam: NORMAL BREATHING PATTERN. absent: Respiratory Distress - Cardiovascular Exam Cardiovascular Exam: +S1, +S2 - Extremities Exam Additional comments: Right index finger laceration wound with minimal serosanguineous drainage. Wound was soaked in iodine (1:1) water solution for 30 minutes and dressed with sterile Telfa and kerlix - Neurological Exam Neurological Exam: Alert, Awake, Oriented x3 - Psychiatric Exam Psychiatric exam: Normal Affect, Normal Mood - Skin Skin Exam: Warm Assessment and Plan - Assessment and Plan (Free Text) Assessment: 81 year old male with a PMH of NIDDM and A-fib on eliquis presented with an abscess on his right index finger s/p laceration by papercut Plan: Right index finger abscess -Continue wound dressing change twice daily with betadine solution -No leukocytosis and afebriles -Pain control -Continue antibiotics per ID -Cont BID betadine soaks -Bedside debridement prior to discharge this PM -D/w with attending
[2017-04-13] MEDS: Metoprolol Succinate 50 mg XL Tab PO SCH (10:43)
--- NOTE | 2017-04-13 14:28 | DS ---
The patient is an 81-year-old, seen and examined. The patient had a cut on his right hand index fing er at home, did not do anything. After 1 week he states it became very painful, was swollen and red so he came to Emergency Room, was found to have abscess. I and D was done. The patient was started on antibiotic and has been on Teflaro, doing well and being discharged today. PHYSICAL EXAMINATION: GENERAL: He is awake and alert, communicative. VITAL SIGNS: He is afebrile. Pulse 64, respirations 20, blood pressure 114/75. LUNGS: Bilateral fair airflow, no rhonchi or crackle. HEART: S1, S2 audible. ABDOMEN: Soft, nontender, no rebound, no guarding. NEUROLOGIC: He is awake and alert, communicative. EXTREMITIES: Right index finger is in dressing, status post I and D. ASSESSMENT: 1. Right index finger cellulitis and abscess, status post incision and drainage. 2. Poorly controlled diabetes. 3. Hypertension. 4. Hyperlipidemia. 5. Morbid obesity. 6. Chronic atrial fibrillation on Eliquis. 7. Recurrent urinary tract infection. PLAN: The patient will be discharged home today on Augmentin 875 twice a day for a total of 10 more days and he will follow up with me and Dr. Suazo as outpatient. Melissa Alfaro MD cc: [phone] TT: 04/13/2017 14:27:22 rn
[2017-04-13] MEDS ORDERED: Amoxicillin-Clav 875-125 mg Tab PO SCH (22:00)
== END 2017-04-13 14:10 | disposition home or self-care (01) | DRG 603 ==
LOC: ED 12:20 → ERH 14:42 → 5RNO 17:21
PROVIDERS: ADMIT Internal Medicine; ATTEND Internal Medicine
PROC: 3E0234Z Introduction of Serum, Toxoid and Vaccine into Muscle, Percutaneous Approach (ICD-10-PCS; 2017-04-10)
PROC: 0H9FXZZ Drainage of Right Hand Skin, External Approach (ICD-10-PCS; principal; 2017-04-11)
DX: L03.011 Cellulitis of right finger (principal); E11.65 Type 2 diabetes mellitus with hyperglycemia; I48.2 Chronic atrial fibrillation; L02.511 Cutaneous abscess of right hand; S61.210A Laceration without foreign body of right index finger without damage to nail, initial encounter; I10 Essential (primary) hypertension; E78.5 Hyperlipidemia, unspecified; I25.10 Atherosclerotic heart disease of native coronary artery without angina pectoris; E66.01 Morbid (severe) obesity due to excess calories; Z68.35 Body mass index [BMI] 35.0-35.9, adult; Z79.84 Long term (current) use of oral hypoglycemic drugs; Z79.01 Long term (current) use of anticoagulants; Z87.891 Personal history of nicotine dependence; Z79.82 Long term (current) use of aspirin; Z87.442 Personal history of urinary calculi; Z98.61 Coronary angioplasty status; Z23 Encounter for immunization; W26.2XXA Contact with edge of stiff paper, initial encounter; Y93.89 Activity, other specified; Y92.9 Unspecified place or not applicable; Y99.9 Unspecified external cause status

== ENCOUNTER 2017-05-14 23:08 | Emergency (ER) | payer MEDICARE ==
[2017-05-14 23:09] VITALS: BMI 34.9
--- NOTE | 2017-05-15 00:52 | ED PDOC ---
Arrival/HPI - General Chief Complaint: Trauma Time Seen by Provider: 05/15/17 00:38 Historian: Patient - History of Present Illness Narrative History of Present Illness (Text): 05/15/17 00:52 Michael Walton is an 81 year old male, whose past medical history includes atrial fibrillation, diabetes, CAD, and hypertension, who presents to the ED brought in by EMS status post mechanical fall. Patient states he was exiting his bathroom, when he slipped and fell backwards on to his right side. Patient now complaining of lower back pain. Patient able to sit up without difficulty. Patient denies any weakness/numbness/tingling in the extremities, parasthesias, head injury, loss of consciousness, neck pain, nausea, vomiting, urinary/bowel incontinence, or any other complaints. Time/Duration: Other (tonight) Symptom Onset: Gradual Symptom Course: Unchanged Activities at Onset: Rest, Light Context: Home, Slipped Past Medical History - Provider Review Nursing Documentation Reviewed: Yes - Infectious Disease Hx of Infectious Diseases: None - Tetanus Immunization Tetanus Immunization: Unknown - Cardiac Hx Cardiac Disorders: Yes (cad) Hx Cardiac Arrhythmia: Yes (AFIB) Hx Pacemaker: No Hx Peripheral Edema: Yes (ble +1 pitting) - Neurological Hx Paralysis: No - Renal Hx Kidney Stones: Yes (lithotripsy [facility]) - Endocrine/Metabolic Hx Diabetes Mellitus Type 2: Yes - Hematological/Oncological Hx Blood Transfusions: No Hx Blood Transfusion Reaction: No - Integumentary Other/Comment: discolored legs - Musculoskeletal/Rheumatological Hx Falls: No - Genitourinary/Gynecological Hx Genitourinary Disorders: Yes (frequency, bladder stone) Hx Hematuria: Yes (3 or 4 yrs ago) Hx Prostate Problems: Yes (prostate obstruction) Other/Comment: cysto 2012 - Psychiatric Hx Depression: No Hx Emotional Abuse: No Hx Physical Abuse: No Hx Substance Use: No - Surgical History Other/Comment: turp green light laser - Anesthesia Hx Anesthesia: Yes Hx Anesthesia Reactions: No Hx Malignant Hyperthermia: No - Suicidal Assessment Feels Threatened In Home Enviroment: No Family/Social History - Physician Review Nursing Documentation Reviewed: Yes Family/Social History: Unknown Family HX Smoking Status: Former Smoker Hx Alcohol Use: No Hx Substance Use: No Hx Substance Use Treatment: No Allergies/Home Meds Allergies/Adverse Reactions: Allergies No Known Allergies Allergy (Verified 04/10/17 12:22) Home Medications: Home Meds Medication Instructions Recorded Confirmed Glyburide/Metformin HCl 1 tab PO BID 03/03/13 05/15/17 [Glyburide-Metformin 5-500 mg] Aspirin [Aspir 81] 81 mg PO PRN PRN 05/14/13 05/15/17 Metoprolol Succinate 50 mg PO DAILY 05/14/13 05/15/17 Apixaban [Eliquis] 5 mg PO BID 05/25/16 05/15/17 Lisinopril/Hydrochlorothiazide 1 tab PO DAILY 05/25/16 05/15/17 [Lisinopril-Hctz 20-25 mg Tab] Review of Systems - Physician Review All systems were reviewed & negative as marked: Yes - Review of Systems Constitutional: Normal. absent: Fevers Eyes: Normal ENT: Normal Respiratory: Normal. absent: SOB, Cough Cardiovascular: Normal. absent: Chest Pain Gastrointestinal: Normal. absent: Abdominal Pain, Diarrhea, Nausea, Vomiting Genitourinary Male: Normal Musculoskeletal: Normal Skin: Normal Neurological: Normal Endocrine: Normal Hemo/Lymphatic: Normal Psychiatric: Normal Physical Exam Vital Signs Reviewed: Yes Vital Signs Temp Pulse Resp BP Pulse Ox 05/15/17 03:00 85 18 132/71 98 05/14/17 23:09 98.7 F 93 H 16 135/73 95 Temperature: Afebrile Blood Pressure: Normal Pulse: Regular Respiratory Rate: Normal Appearance: Positive for: Well-Appearing, Non-Toxic, Comfortable Pain Distress: None Mental Status: Positive for: Alert and Oriented X 3 - Systems Exam Head: Present: Atraumatic, Normocephalic Pupils: Present: PERRL Extroacular Muscles: Present: EOMI Conjunctiva: Present: Normal Ears: Present: NORMAL TM Mouth: Present: Moist Mucous Membranes Neck: Present: Normal Range of Motion Respiratory/Chest: Present: Clear to Auscultation, Good Air Exchange. No: Respiratory Distress, Accessory Muscle Use Cardiovascular: Present: Regular Rate and Rhythm, Normal S1, S2. No: Murmurs Abdomen: Present: Normal Bowel Sounds. No: Tenderness, Distention, Peritoneal Signs Back: Present: Paraspinal Tenderness (Paralumbar tenderness). No: CVA Tenderness, Midline Tenderness Upper Extremity: Present: Normal Inspection. No: Cyanosis, Edema Lower Extremity: Present: Normal Inspection. No: Edema Neurological: Present: GCS=15, CN II-XII Intact, Speech Normal Skin: Present: Warm, Dry, Normal Color. No: Rashes Psychiatric: Present: Alert, Oriented x 3, Normal Insight, Normal Concentration Medical Decision Making ED Course and Treatment: 05/15/17 00:52 Impression: 81 year old male presents s/p mechanical fall at home. Pt c/o lower back pain Differential Diagnosis included but are not limited to: Plan: -- CT Lumbar Spine -- Ultracet - Reassess and disposition Progress Notes: 05/15/17 02:52 Reviewed radiology, CT Lumbar Spine shows: Limitations: Motion artifact - mild. Vertebrae: No acute fracture. Mild facet osteoarthrosis within mid to lower lumbar spine. Discs/spinal canal/neural foramina: Mild degenerative disc disease within upper lumbar spine. Moderate to severe degenerative disc disease within mid and lower lumbar spine. Disc herniations at several levels, suboptimally evaluated. Mild to moderate multilevel central canal stenosis. Multilevel neuroforaminal narrowing. Degenerative changes of mid/lower thoracic spine and sacroiliac joints. Soft tissues: Unremarkable. Vasculature: Atherosclerotic disease of visualized arteries. Adrenals: Mild hypertrophy of LEFT adrenal gland. Kidneys and ureters: [id number] atrophy of RIGHT kidney. Calcification/ calculus within lower pole RIGHT kidney. Probable LEFT renal cyst. IMPRESSION: 1. No fracture. 2. If back pain persists, consider MRI for further evaluation. 3. Incidental/non-acute findings are described above. 05/15/17 03:40 On reevaluation the patient feels better and is in no acute distress. I have discussed the results and plan with the patient, who expresses understanding. Patient given the opportunity to ask question, all questions were answered and there is agreement with the plan to discharge the patient home. Patient is stable for discharge. Patient was instructed to follow up with physician/clinic in 1-2 days or return if symptoms persist/worsen or new concerning symptoms arise. - RAD Interpretation Radiology Orders: 05/15/17 00:54 LUMBAR SPINE W/O CONTRAST [CT] Stat Survey Workers Supervisor: Radiologist - Medication Orders Current Medication Orders: Discontinued Medications Tramadol/Acetaminophen (Ultracet 37.5/325 Mg) 1 tab PO ONCE STA Stop: 05/15/17 00:56 Last Admin: 05/15/17 01:07 Dose: 1 tab - Scribe Statement The provider has reviewed the documentation as recorded by the Jaycee Damon Provider Scribe Attestation: All medical record entries made by the Scribe were at my direction and personally dictated by me. I have reviewed the chart and agree that the record accurately reflects my personal performance of the history, physical exam, medical decision making, and the department course for this patient. I have also personally directed, reviewed, and agree with the discharge instructions and disposition. Disposition/Present on Arrival - Present on Arrival Any Indicators Present on Arrival: No History of DVT/PE: No History of Uncontrolled Diabetes: No Urinary Catheter: No History of Decub. Ulcer: No History Surgical Site Infection Following: None - Disposition Have Diagnosis and Disposition been Completed?: Yes Diagnosis: Lower back injury, Muscle strain Disposition: HOME/ ROUTINE Disposition Time: 03:41 Patient Plan: Discharge Patient Problems: Current Active Problems Problem Status Onset Lower back injury Acute Muscle strain Acute Condition: GOOD Discharge Instructions (ExitCare): Muscle Strain (ED), Back Pain (ED) Additional Instructions: Rest/no strenuous physical activity/take meds as prescribed/follow up with your doctor this week Prescriptions: traMADol/Acetaminophen [Ultracet 325 MG-37.5 MG] 1 tab PO Q6 PRN #16 tab PRN Reason: Pain Referrals: Melissa Alfaro MD [Primary Care Provider] - Follow up with primary
[2017-05-15] MEDS ORDERED: TraMADol/Apap 37.5/325 mg Tab PO STA (00:55)
--- NOTE | 2017-05-15 02:34 | CT ---
EXAM: CT Lumbar Spine Without Intravenous Contrast CLINICAL HISTORY: 81 years old, male; Pain; Low back pain; Additional info: Lower back pain S/P fall TECHNIQUE: Axial computed tomography images of the lumbar spine without intravenous contrast. This CT exam was performed using one or more of the following dose reduction techniques: automated exposure control, adjustment of the mA and/or kV according to patient size, and/or use of iterative reconstruction technique. Coronal and sagittal reformatted images were created and reviewed. COMPARISON: No relevant prior studies available. FINDINGS: Limitations: Motion artifact - mild. Vertebrae: No acute fracture. Mild facet osteoarthrosis within mid to lower lumbar spine. Discs/spinal canal/neural foramina: Mild degenerative disc disease within upper lumbar spine. Moderate to severe degenerative disc disease within mid and lower lumbar spine. Disc herniations at several levels, suboptimally evaluated. Mild to moderate multilevel central canal stenosis. Multilevel neuroforaminal narrowing. Degenerative changes of mid/lower thoracic spine and sacroiliac joints. Soft tissues: Unremarkable. Vasculature: Atherosclerotic disease of visualized arteries. Adrenals: Mild hypertrophy of LEFT adrenal gland. Kidneys and ureters: [id number] atrophy of RIGHT kidney. Calcification/calculus within lower pole RIGHT kidney. Probable LEFT renal cyst. IMPRESSION: 1. No fracture. 2. If back pain persists, consider MRI for further evaluation. 3. Incidental/non-acute findings are described above.
[2017-05-15 09:55] VITALS: BP 129/80; PULSE 82; RESP 16; TEMP 98.4; O2SAT 99
== END 2017-05-15 07:40 | disposition home or self-care (01) ==
LOC: ED 23:08
DX: S39.012A Strain of muscle, fascia and tendon of lower back, initial encounter (principal); W01.0XXA Fall on same level from slipping, tripping and stumbling without subsequent striking against object, initial encounter; Y93.89 Activity, other specified; Y92.008 Other place in unspecified non-institutional (private) residence as the place of occurrence of the external cause

== ENCOUNTER 2017-05-23 21:04 | Inpatient (IN) | payer MEDICARE ==
[2017-05-23 21:04] VITALS: BMI 34.9
[2017-05-23] MEDS ORDERED: TraMADol/Apap 37.5/325 mg Tab PO STA (21:22)
--- NOTE | 2017-05-23 21:29 | ED PDOC ---
Arrival/HPI <María ElenaLuis Antonio - Last Filed: 05/23/17 23:35> <Marin Aguirre - Last Filed: 05/24/17 01:00> - General Chief Complaint: Trauma Time Seen by Provider: 05/23/17 21:06 - History of Present Illness Narrative History of Present Illness (Text): 05/23/17 21:25 This pt is an 81yo M w/ a PMhx of Afibb on Eliquis (non compliant), DM, HTN, CHF systolic and diastolic and chronic back pain and frequent falls who is coming in for a fall today. States that he was walking, and fell and hit his head and had trouble getting up so called 911. He was last seen here for a similar fall. The patient never lost consciousness and remembers the entire event. denies fevers/chills, chest pain, sob, nausea/v/d, abdominal pain, or lower extremity pain. States his legs have been getting swollen because he is not taking his medicines. Denies headache/fevers/chills. Admits to frequency and dysuria with urination. States falls asleep in chair mostly. complaining of pain inbetween his buttocks where he normally puts weight and states "he has a cut there". PMD: Dr. Alfaro Urology: Dr. Edmond Cardiology: Dr. Washington (Marin Aguirre) Past Medical History - Provider Review Nursing Documentation Reviewed: Yes - Travel History Have you recently traveled outside [place] w/in the past 3 mons?: No - Infectious Disease Hx of Infectious Diseases: None - Tetanus Immunization Tetanus Immunization: Unknown - Cardiac Hx Cardiac Disorders: Yes (cad) Hx Cardiac Arrhythmia: Yes (AFIB) Hx Pacemaker: No Hx Peripheral Edema: Yes (ble +1 pitting) - Neurological Hx Paralysis: No - Renal Hx Kidney Stones: Yes (lithotripsy [facility]) - Endocrine/Metabolic Hx Diabetes Mellitus Type 2: Yes - Hematological/Oncological Hx Blood Transfusions: No Hx Blood Transfusion Reaction: No - Integumentary Other/Comment: discolored legs - Musculoskeletal/Rheumatological Hx Falls: No - Genitourinary/Gynecological Hx Genitourinary Disorders: Yes (frequency, bladder stone) Hx Hematuria: Yes (3 or 4 yrs ago) Hx Prostate Problems: Yes (prostate obstruction) Other/Comment: cysto 2012 - Psychiatric Hx Depression: No Hx Emotional Abuse: No Hx Physical Abuse: No Hx Substance Use: No - Surgical History Other/Comment: turp green light laser - Anesthesia Hx Anesthesia: Yes Hx Anesthesia Reactions: No Hx Malignant Hyperthermia: No - Suicidal Assessment Feels Threatened In Home Enviroment: No <Marin Aguirre - Last Filed: 05/24/17 01:00> Family/Social History - Physician Review Nursing Documentation Reviewed: Yes Family/Social History: No Known Family HX Smoking Status: Former Smoker Hx Alcohol Use: No Hx Substance Use: No Hx Substance Use Treatment: No <Marin Aguirre - Last Filed: 05/24/17 01:00> Allergies/Home Meds <Luis Antonio Ring - Last Filed: 05/23/17 23:35> <Marin Aguirre - Last Filed: 05/24/17 01:00> Allergies/Adverse Reactions: Allergies No Known Allergies Allergy (Verified 04/10/17 12:22) Home Medications: Home Meds Medication Instructions Recorded Confirmed Glyburide/Metformin HCl 1 tab PO BID 03/03/13 05/23/17 [Glyburide-Metformin 5-500 mg] Aspirin [Aspir 81] 81 mg PO PRN PRN 05/14/13 05/23/17 Metoprolol Succinate 50 mg PO DAILY 05/14/13 05/23/17 Apixaban [Eliquis] 5 mg PO BID 05/25/16 05/23/17 Lisinopril/Hydrochlorothiazide 1 tab PO DAILY 05/25/16 05/23/17 [Lisinopril-Hctz 20-25 mg Tab] Review of Systems - Review of Systems Constitutional: absent: Fatigue, Weight Change Eyes: absent: Vision Changes, Photophobia ENT: absent: Hearing Changes, Tinnitus Respiratory: absent: SOB, Cough, Sputum Cardiovascular: absent: Chest Pain <Marin Aguirre - Last Filed: 05/24/17 01:00> Physical Exam Temperature: Afebrile Blood Pressure: Normal Pulse: Regular Respiratory Rate: Normal Appearance: Positive for: Non-Toxic Pain Distress: None Mental Status: Positive for: Alert and Oriented X 3 - Systems Exam Head: Present: Atraumatic, Normocephalic Pupils: Present: PERRL Extroacular Muscles: Present: EOMI Conjunctiva: Present: Normal Mouth: Present: Moist Mucous Membranes Neck: Present: Normal Range of Motion. No: Meningeal Signs Respiratory/Chest: Present: Good Air Exchange. No: Clear to Auscultation ( crackles b/l bases), Respiratory Distress, Accessory Muscle Use, Wheezes Cardiovascular: Present: Murmurs (+), Normal S1, S2, Irregular Rhythm, Peripheal Pulses Present. No: Regular Rate and Rhythm (irregularly irregular ryhtm), Tachycardic, Bradycardic, Rub, Gallop Abdomen: No: Tenderness, Distention Genitourinary Male: Present: Other (scrotal abscess present with pus purulent drainage and discharge) Back: Present: Decubitus Ulcer (stage 1 decub ulcer present ). No: Normal Inspection Upper Extremity: Present: NORMAL PULSES. No: Normal Inspection (bruising on b/ l arms), Cyanosis Lower Extremity: Present: Edema (+3 pitting edema up to knees) Neurological: Present: GCS=15, CN II-XII Intact, Speech Normal Skin: Present: Warm <Marin Aguirre - Last Filed: 05/24/17 01:00> Vital Signs Temp Pulse Resp BP Pulse Ox 05/24/17 00:58 98.2 F 97 H 18 157/81 H 98 Medical Decision Making <Luis Antonio Ring - Last Filed: 05/23/17 23:35> <Marin Aguirre - Last Filed: 05/24/17 01:00> ED Course and Treatment: Impression: Pt seen and evaluated with emergency medical service coordinator. Pt, whose past medical history includes a fib, diabetes, hypertension, congestive heart failure, chronic back pain, and frequent falls, presented s/p mechanical fall tonght. Pt states he fell and hit his head while walkin and difficulty getting back up on his own. Denies LOC, chest pain, shortness of breath. Reports urinary frequency and dysuria. Aware and agree with HPI, clinical findings, plan, and management. Plan: -- CT Head w/o contrast -- CT Lumbar Spine w/o contrast -- CT Hip -- EKG -- Labs, VBG, cardiac enzymes, BNP -- Reassess and disposition (Luis nAtonio Ring) 05/23/17 21:30 CT Head/Lumbar/Hips CBC CMP UA Mag Phos EKG Chest X-Ray Pain control with ultracet Stage 1 decub ulcer present Reassess and dispo 05/23/17 22:45 EKG showed afibb with prolonged QTC awaiting labs 05/23/17 23:07 Scrotal draining abscess on physical exam with nurse; purulent discharge with foul smell awaiting call back from Dr. Alfaro started IV Vanco Metro and Zosyn consult placed to Dr. Edmond who is the patients urologist 05/23/17 23:16 Dr Alfaro accepts the patient to her service Dr. Caicedo for surgery for decub ulcer Dr. Marin Swanson for ID Bridging orders placed 05/23/17 23:16 Awaiting the blood work still 05/23/17 23:42 HR 90, WBC 13.4, obvious sign of infection Sepsis 2/2 to testicular abscess antibiotics ordered; in setting of CHF need to be conservative with fluids as patient is already fluid overloaded awaiting VBG lactate 05/23/17 23:44 CT Head and Lumbar spine show no acute changes; CT lumbar still recommending MRI as previous scan showed as well Awaiting CT hip 05/24/17 00:39 Lactate 2.6 Code Sepsis called blood cultures already sent (Marin Aguirre) - Lab Interpretations Lab Results: 05/23/17 22:41 05/23/17 22:41 Lab Results 05/24/17 00:15: pO2 45, VBG pH 7.52 H, VBG pCO2 33.0 L, VBG HCO3 26.9, VBG Total CO2 27.9, VBG O2 Sat (Calc) 85.6 H, VBG Base Excess 4.4 H, VBG Potassium 3.6, Glucose 275 H, Lactate 2.6 H, FiO2 21.0, Sodium 135.0, Chloride 97.0 L, Venous Blood Potassium 3.6 05/23/17 22:41: Sodium 133, Potassium 4.2, Chloride 97, Carbon Dioxide 26, Anion Gap 14, BUN 20, Creatinine 0.8, Est GFR ( Amer) > 60, Est GFR (Non- Af Amer) > 60, Random Glucose 272 H, Calcium 9.2, Phosphorus 2.5, Magnesium 1.7 , Total Bilirubin 1.8 H, AST 25, ALT 28, Alkaline Phosphatase 91, Lactate Dehydrogenase 417, Total Creatine Kinase 55, Troponin I 0.02, NT-Pro-B Natriuret Pep 784 H, Total Protein 7.0, Albumin 3.1, Globulin 3.9, Albumin/ Globulin Ratio 0.8 L 05/23/17 22:41: WBC 13.4 H D, RBC 4.34, Hgb 13.0 L, Hct 38.9 L, MCV 89.6, MCH 30.0, MCHC 33.4, RDW 13.7, Plt Count 341, MPV 9.9, Gran % 86.7 H, Lymph % (Auto ) 8.4 L, [place] % (Auto) 4.7, Eos % (Auto) 0.1 L, Baso % (Auto) 0.1, Gran # 11.62 H, Lymph # 1.1 L, [place] # 0.6, Eos # 0.0, Baso # 0.02 - RAD Interpretation Radiology Orders: 05/23/17 21:21 HEAD W/O CONTRAST [CT] Stat Hip [CT HIP W/O CONTRAST BILATERAL] [CT] Stat LUMBAR SPINE W/O CONTRAST [CT] Stat - Medication Orders Current Medication Orders: Apixaban (Eliquis) 5 mg PO BID DAVID PRN Reason: Protocol Aspirin (Ecotrin) 81 mg PO DAILY DAVID Hydrochlorothiazide (Hydrodiuril) 25 mg PO DAILY DAVID Insulin Human Lispro (Humalog High) 0 units SC ACHS DAVID PRN Reason: Protocol Lisinopril (Zestril) 20 mg PO DAILY DAVID Metoprolol Succinate (Toprol Xl) 50 mg PO DAILY DAVID Tramadol/Acetaminophen (Ultracet 37.5/325 Mg) 1 tab PO Q6 PRN PRN Reason: Pain Discontinued Medications Metronidazole (Flagyl) 500 mg in 100 mls @ 100 mls/hr IVPB STAT STA PRN Reason: Protocol Stop: 05/24/17 00:01 Piperacillin Sod/Tazobactam Sod (Zosyn 3.375 In Ns 100ml) 100 mls @ 200 mls/hr IVPB STAT STA PRN Reason: Protocol Stop: 05/23/17 23:31 Vancomycin HCl (Vancomycin 1gm) 1 gm in 250 mls @ 167 mls/hr IVPB STAT STA Stop: 05/24/17 00:35 Tramadol/Acetaminophen (Ultracet 37.5/325 Mg) 1 tab PO STAT STA Stop: 05/23/17 21:23 - PA / [employer] WIRE ALINER / Resident Statement / has reviewed & agrees with the documentation as recorded. [facility] has examined the patient and agrees with the treatment plan. <Luis Antonio Ring - Last Filed: 05/23/17 23:35> Disposition/Present on Arrival <Luis Antonio Ring - Last Filed: 05/23/17 23:35> - Present on Arrival Any Indicators Present on Arrival: Yes History of DVT/PE: No History of Uncontrolled Diabetes: No Urinary Catheter: No History Surgical Site Infection Following: None - Disposition Have Diagnosis and Disposition been Completed?: Yes Disposition Time: 23:16 Patient Plan: Admission <Marin Aguirre - Last Filed: 05/24/17 01:00> - Disposition Diagnosis: Scrotal abscess Disposition: HOSPITALIZED Patient Problems: Current Active Problems Problem Status Onset Scrotal abscess Acute Condition: FAIR Referrals: Melissa Alfaro MD [Primary Care Provider] - Follow up with primary
[2017-05-23 22:46] LABS: ADD MANUAL DIFF? NO
[2017-05-23 22:55] LABS: BASO # 0.02 K/mm3 (0.0-2.0); BASO % 0.1 % (0.0-3.0); EOS % 0.1 % (1.5-5.0); GRAN # 11.62 (1.4-6.5); GRAN % 86.7 % (50.0-68.0); HEMATOCRIT 38.9 % (42.0-52.0); LYMPH # 1.1 (1.2-3.4); LYMPH % 8.4 % (22.0-35.0); MEAN CELL VOLUME 89.6 fL (80.0-105.0); MEAN CORPUSCULAR HGB CONC 33.4 g/dl (31.0-37.0); MEAN PLATELET VOLUME 9.9 fl (7.0-11.0); MONO # 0.6 (0.1-0.6); MONO % 4.7 % (1.0-6.0); PLATELET COUNT 341 10^3/uL (120.0-450.0); RED CELL DISTRIBUTION WIDTH 13.7 % (11.5-14.5); WHITE BLOOD COUNT 13.4 10^3/ul (4.5-11.0)
[2017-05-23 23:01] LABS: ALB/GLOB RATIO 0.8 (1.1-1.8); ALKALINE PHOSPHATASE 91 U/L (38-133); ALT/SGPT 28 U/L (7-56); AST/SGOT 25 U/L (15-59); BILIRUBIN,TOTAL 1.8 mg/dL (0.2-1.3); BLOOD UREA NITROGEN 20 mg/dL (7-21); CALCIUM 9.2 mg/dL (8.4-10.5); CARBON DIOXIDE 26 mmol/L (21-33); CHLORIDE 97 mmol/L (95-110); GFR AFRICAN-AMERICAN > 60; GLUCOSE,RANDOM 272 mg/dL (70-110); MAGNESIUM 1.7 mg/dL (1.7-2.2); PHOSPHOROUS 2.5 mg/dL (2.5-4.5); SODIUM 133 mmol/L (132-148)
[2017-05-23 23:02] LABS: POTASSIUM 4.2 mmol/L (3.6-5.0)
[2017-05-23] MEDS ORDERED: Piperacillin/Tazobact 3.375 gm 100 ML IVPB STA (23:02)
[2017-05-23] MEDS ORDERED: Vancomycin 1 g Inj IVPB STA (23:02)
[2017-05-23] MEDS ORDERED: metroNIDAZOLE IV 500 mg/100 ml 500 MG/100 ML BAG IVPB STA (23:02)
[2017-05-23] MEDS ORDERED: Vancomycin 1gm in NS 250ml 1 GM/250 ML BAG IVPB STA (23:06)
[2017-05-23 23:13] LABS: TROPONIN I 0.02 ng/mL
--- NOTE | 2017-05-23 23:33 | CT ---
EXAM: CT Head Without Intravenous Contrast CLINICAL HISTORY: 81 years old, male; Injury or trauma; Fall; Initial encounter; Blunt trauma (contusions or hematomas) TECHNIQUE: Axial computed tomography images of the head/brain without intravenous contrast. This CT exam was performed using one or more of the following dose reduction techniques: automated exposure control, adjustment of the mA and/or kV according to patient size, and/or use of iterative reconstruction technique. COMPARISON: No relevant prior studies available. Examination is markedly limited by a significant amount of motion artifact. FINDINGS: Brain: No acute intracranial hemorrhage. Age-appropriate periventricular white matter disease. No edema. Ventricles: Age-appropriate ventriculomegaly. Bones: No acute displaced fracture. Sinuses: Unremarkable as visualized. No acute sinusitis. Mastoid air cells: Unremarkable as visualized. No mastoid effusion. IMPRESSION: Limited examination, secondary to significant motion artifact, it is without acute intracranial hemorrhage, or suspicious mass effect.
--- NOTE | 2017-05-23 23:44 | CT ---
EXAM: CT Lumbar Spine Without Intravenous Contrast CLINICAL HISTORY: 81 years old, male; Injury or trauma; Fall; Initial encounter; Blunt trauma (contusions or hematomas) TECHNIQUE: Axial computed tomography images of the lumbar spine without intravenous contrast. This CT exam was performed using one or more of the following dose reduction techniques: automated exposure control, adjustment of the mA and/or kV according to patient size, and/or use of iterative reconstruction technique. Coronal and sagittal reformatted images were created and reviewed. COMPARISON: CT - LUMBAR SPINE W/O CONTRAST 05/15/2017 1:38:03 AM FINDINGS: Vertebrae: A lucent lesion is identified within the vertebral body of L2, for which dedicated contrast enhanced MRI is recommended. This finding is unchanged from previous examination. No acute fracture. Discs/spinal canal/neural foramina: No acute findings. Degenerative disease, with osteophyte formation, disc space narrowing, endplate changes and subchondral cyst formation. Soft tissues: Calcified atherosclerotic disease. IMPRESSION: Moderate degenerative disease, without acute fracture. Abnormal attenuation within the vertebral body of L2, which (nonemergent) dedicated contrast enhanced MRI is recommended, for further evaluation, if the patient is clinically able.
--- NOTE | 2017-05-23 23:59 | CT ---
EXAM: CT Left Lower Extremity Without Intravenous Contrast, Hip CLINICAL HISTORY: 81 years old, male; Injury or trauma; Fall; Initial encounter; Blunt trauma; Hip; Bilateral TECHNIQUE: Axial computed tomography images of the left hip without intravenous contrast. This CT exam was performed using one or more of the following dose reduction techniques: automated exposure control, adjustment of the mA and/or kV according to patient size, and/or use of iterative reconstruction technique. Coronal and sagittal reformatted images were created and reviewed. COMPARISON: No relevant prior studies available. FINDINGS: Bones/joints: No acute fracture. No dislocation. Moderate degenerative disease, with osteophyte formation and femoral acetabular joint space narrowing. Soft tissues: Calcified atherosclerotic disease. IMPRESSION: No acute fracture. EXAM: CT Right Lower Extremity Without Intravenous Contrast, Hip CLINICAL HISTORY: 81 years old, male; Injury or trauma; Fall; Initial encounter; Blunt trauma; Hip; Bilateral TECHNIQUE: Axial computed tomography images of the right hip without intravenous contrast. This CT exam was performed using one or more of the following dose reduction techniques: automated exposure control, adjustment of the mA and/or kV according to patient size, and/or use of iterative reconstruction technique. Coronal and sagittal reformatted images were created and reviewed. COMPARISON: No relevant prior studies available. FINDINGS: Bones/joints: No acute fracture. No dislocation. Moderate degenerative disease, with osteophyte formation. Soft tissues: Calcified atherosclerotic disease. IMPRESSION: No acute fracture, as detailed above.
[2017-05-24 00:33] LABS: VENOUS BLOOD GAS BASE EXCESS 4.4 mmol/L (0.0-2.0); VENOUS BLOOD PH 7.52 (7.32-7.43)
[2017-05-24 03:03] LABS: URINE BILIRUBIN NEGATIVE (NEGATIVE); URINE BLOOD LARGE (NEGATIVE); URINE GLUCOSE (UA) 500 mg/dL (NEGATIVE); URINE KETONE 15 mg/dL (NEGATIVE); URINE LEUKOCYTE ESTERASE SMALL Leu/uL (NEGATIVE); URINE PROTEIN 30 mg/dL (<30 mg/dL)
[2017-05-24 03:10] LABS: URINE APPEARANCE SL CLOUDY (CLEAR); URINE COLOR YELLOW (YELLOW)
[2017-05-24 03:21] LABS: URINE EPITHELIAL CELLS 0 - 2 /hpf (0-5); URINE WBC TNTC /hpf (0-6)
[2017-05-24 03:22] LABS: URINE BACTERIA MANY (NEG)
[2017-05-24 03:41] LABS: VENOUS BLOOD GAS BASE EXCESS 3.7 mmol/L (0.0-2.0); VENOUS BLOOD PH 7.43 (7.32-7.43)
--- NOTE | 2017-05-24 06:22 | PCM.SEPTIC ---
<CATHY PASTOR - Last Filed: 05/24/17 06:18> Sepsis Progress Note - Reassessment Type Date of Evaluation: 05/24/17 Time of Evaluation: 06:15 Reassessment Type: Non-invasive reassessment - Non Invasive Reassessment Were the most recent vital sign reviewed: Yes Vital Sign (Latest): Temp Pulse Resp BP Pulse Ox 97.6 F 95 H 20 137/68 94 L 05/24/17 06:00 05/24/17 06:00 05/24/17 06:00 05/24/17 06:00 05/24/17 06:00 Cardiovascular: Yes: Tachycardia Respiratory: Yes: Normal Breath Sounds. No: Crackles, Rales, Rhonchi Capillary Refill: Normal (Less than 2 sec) Pulses: Normal Radial, Normal Dorsalis Pedis, Normal Posterior Tibialis Skin: Other (decubitus ulcer) - Invasive Reassessment (complete 2 of 4) Was a Central Venous Pressure Measurement obtained within 6 Hours after the presentation of septic shock: No Was a central venous oxygen measurement obtained within 6 hours after the presentation of septic shock: No Was a bedside cardiovascular ultrasound performed within 6 hours after the presentation of septic shock: No Was a passive leg raise performed or was a fluid challenge performed within 6 hrs of the initial fluid bolus: No Fluid Challenge performed: No <BlackwoodRenato - Last Filed: 05/24/17 10:10> Sepsis Progress Note - Non Invasive Reassessment Vital Sign (Latest): Temp Pulse Resp BP Pulse Ox 97.6 F 95 H 20 137/68 94 L 05/24/17 06:00 05/24/17 06:00 05/24/17 06:00 05/24/17 06:00 05/24/17 06:00 Attending/Attestation - Attestation I have personally seen and examined this patient.: No I have fully participated in the care of the patient.: Yes I have reviewed all pertinent clinical information, including history, physical exam and plan: Yes
[2017-05-24 07:52] LABS: HEMATOCRIT 37.4 % (42.0-52.0); MEAN CELL VOLUME 89.7 fL (80.0-105.0); MEAN CORPUSCULAR HEMOGLOBIN 30.2 pg (25.0-35.0); MEAN CORPUSCULAR HGB CONC 33.7 g/dl (31.0-37.0); MEAN PLATELET VOLUME 9.6 fl (7.0-11.0); PLATELET COUNT 329 10^3/uL (120.0-450.0); RED CELL DISTRIBUTION WIDTH 13.7 % (11.5-14.5); WHITE BLOOD COUNT 15.4 10^3/ul (4.5-11.0)
[2017-05-24 07:55] LABS: ADD MANUAL DIFF? YES
[2017-05-24 08:04] LABS: ALB/GLOB RATIO 0.7 (1.1-1.8); ALKALINE PHOSPHATASE 84 U/L (38-133); ALT/SGPT 29 U/L (7-56); AST/SGOT 28 U/L (15-59); BILIRUBIN,TOTAL 1.8 mg/dL (0.2-1.3); BLOOD UREA NITROGEN 18 mg/dL (7-21); CALCIUM 8.9 mg/dL (8.4-10.5); CARBON DIOXIDE 28 mmol/L (21-33); CHLORIDE 100 mmol/L (98-107); GFR AFRICAN-AMERICAN > 60; GLUCOSE,RANDOM 256 mg/dL (70-110); POTASSIUM 3.5 mmol/L (3.6-5.0); SODIUM 138 mmol/L (132-148); TOTAL PROTEIN 6.3 g/dL (5.8-8.3)
[2017-05-24 08:15] LABS: TROPONIN I 0.02 ng/mL
[2017-05-24] MEDS: Insulin Lispro (HUMAlog) HIGH Coverage SC SCH ×4 (08:16→21:28)
[2017-05-24 09:00] LABS: EOSINOPHIL 1 % (0.0-3.0); NEUTROPHIL 94 % (50.0-70.0); PLATELET ESTIMATE NORMAL (NORMAL); PROMYELOCYTE 1 %
--- NOTE | 2017-05-24 09:24 | CP.PCM.CON ---
History of Present Illness - History of Present Illness History of Present Illness: General Surgery Dr. Caicedo 81 yo M brought to the ER after a fall while walking and having difficulty standing up. He denies LOC. Patient has a hx of frequent falls. He is currently complaining of some pain on his buttocks. He states that he has some sores on his scrotum and one his buttocks. PMH: Afib (on Eliquis), DM, HTN, CHF (systolic and diastolic), chronic back pain PSH: TURP ALL: NKDA Review of Systems - Review of Systems All systems: reviewed and no additional remarkable complaints except Past Patient History - Infectious Disease Hx of Infectious Diseases: None - Tetanus Immunizations Tetanus Immunization: Unknown - Past Medical History & Family History Past Medical History?: Yes - Past Social History Smoking Status: Former Smoker - CARDIAC Hx Cardiac Disorders: Yes (cad) Hx Cardia Arrhythmia: Yes (AFIB) Hx Congestive Heart Failure: Yes Hx Hypercholesterolemia: Yes Hx Pacemaker: No Hx Peripheral Edema: Yes - PULMONARY Hx Respiratory Disorders: No - NEUROLOGICAL Hx Neurological Disorder: No - HEENT Hx HEENT Problems: Yes (uses glasses) - RENAL Hx Chronic Kidney Disease: Yes Hx Kidney Stones: Yes ([facility]ot[facility]) - ENDOCRINE/METABOLIC Hx Endocrine Disorders: Yes Hx Diabetes Mellitus Type 2: Yes - HEMATOLOGICAL/ONCOLOGICAL Hx Blood Disorders: No - INTEGUMENTARY Hx Dermatological Problems: No - MUSCULOSKELETAL/RHEUMATOLOGICAL Hx Falls: Yes - GASTROINTESTINAL Hx Gastrointestinal Disorders: No - GENITOURINARY/GYNECOLOGICAL Hx Genitourinary Disorders: Yes (frequency, bladder stone) Hx Hematuria: Yes (3 or 4 yrs ago) Hx Prostate Problems: Yes (prostate obstruction,cysotscopy) Hx Urinary Tract Infection: Yes - PSYCHIATRIC Hx Substance Use: No - SURGICAL HISTORY Hx Surgeries: Yes (TURP GREEN LIGHT LASER) Hx Cardiac Catheterization: Yes Hx Coronary Stent: Yes - ANESTHESIA Hx Anesthesia: Yes Hx Anesthesia Reactions: No Hx Malignant Hyperthermia: No Meds Allergies/Adverse Reactions: Allergies Allergy/AdvReac Type Severity Reaction Status Date / Time No Known Allergies Allergy Verified 04/10/17 12:22 - Medications Medications: Current Medications Apixaban (Eliquis) 5 mg PO BID DAVID PRN Reason: Protocol Aspirin (Ecotrin) 81 mg PO DAILY DAVID Hydrochlorothiazide (Hydrodiuril) 25 mg PO DAILY [facility] Insulin Human Lispro (Humalog High) 0 units SC ACHS DAVID PRN Reason: Protocol Last Admin: 05/24/17 08:16 Dose: 7 units Lisinopril (Zestril) 20 mg PO DAILY DAVID Metoprolol Succinate (Toprol Xl) 50 mg PO DAILY [facility] Tramadol/Acetaminophen (Ultracet 37.5/325 Mg) 1 tab PO Q6 PRN PRN Reason: Pain Physical Exam - Constitutional Appears: Non-toxic, No Acute Distress - Head Exam Head Exam: ATRAUMATIC, NORMOCEPHALIC - Eye Exam Eye Exam: EOMI - Respiratory Exam Respiratory Exam: NORMAL BREATHING PATTERN. absent: Accessory Muscle Use, Respiratory Distress - Cardiovascular Exam Cardiovascular Exam: REGULAR RHYTHM - Rectal Exam Additional comments: Stage 2 pressure ulcer on left glute. - Exam Additional comments: multiple pressure ulcers of various staging located on scrotum. - Neurological Exam Neurological exam: Alert, Oriented x3 - Skin Skin Exam: Normal Color, Warm Results - Vital Signs Recent Vital Signs: Last Vital Signs Temp 97.6 F 05/24/17 06:00 Pulse 95 H 05/24/17 06:00 Resp 20 05/24/17 06:00 BP 137/68 05/24/17 06:00 Pulse Ox 94 L 05/24/17 06:00 - Labs Result Diagrams: 05/24/17 07:30 05/24/17 07:30 Labs: Laboratory Results - last 24 hr 05/24/17 05/24/17 05/24/17 02:45 03:12 07:30 WBC RBC Hgb Hct MCV MCH MCHC RDW Plt Count MPV Neutrophils % (Manual) Lymphocytes % (Manual) Monocytes % (Manual) Eosinophils % (Manual) Promyelocytes % Platelet Evaluation pO2 80 H VBG pH 7.43 VBG pCO2 43.0 VBG HCO3 28.5 H VBG Total CO2 29.8 H VBG O2 Sat (Calc) 96.7 H VBG Base Excess 3.7 H VBG Potassium 3.4 L Sodium 135.0 138 Chloride 100.0 100 Glucose 265 H Lactate 1.2 FiO2 21.0 Potassium 3.5 L Carbon Dioxide 28 Anion Gap 14 BUN 18 Creatinine 0.9 Est GFR ( Amer) > 60 Est GFR (Non-Af Amer) > 60 Random Glucose 256 H Calcium 8.9 Total Bilirubin 1.8 H AST 28 ALT 29 Alkaline Phosphatase 84 Lactate Dehydrogenase 297 L Total Creatine Kinase 40 Troponin I 0.02 Total Protein 6.3 Albumin 2.6 L Globulin 3.7 Albumin/Globulin Ratio 0.7 L Venous Blood Potassium 3.4 L Urine Color Yellow Urine Appearance Sl cloudy Urine pH 6.0 Ur Specific [place] 1.020 Urine Protein 30 H Urine Glucose (UA) 500 H Urine Ketones 15 H Urine Blood Large H Urine Nitrate Positive H Urine Bilirubin Negative Urine Urobilinogen 4.0 H Ur Leukocyte Esterase Small H Urine RBC 5 - 10 Urine WBC Tntc Ur Epithelial Cells 0 - 2 Urine Bacteria Many 05/24/17 07:30 WBC 15.4 H RBC 4.17 Hgb 12.6 L Hct 37.4 L MCV 89.7 MCH 30.2 MCHC 33.7 RDW 13.7 Plt Count 329 MPV 9.6 Neutrophils % (Manual) 94 H Lymphocytes % (Manual) 2 L Monocytes % (Manual) 2 Eosinophils % (Manual) 1 Promyelocytes % 1 Platelet Evaluation Normal pO2 VBG pH VBG pCO2 VBG HCO3 VBG Total CO2 VBG O2 Sat (Calc) VBG Base Excess VBG Potassium Sodium Chloride Glucose Lactate FiO2 Potassium Carbon Dioxide Anion Gap BUN Creatinine Est GFR ( Amer) Est GFR (Non-Af Amer) Random Glucose Calcium Total Bilirubin AST ALT Alkaline Phosphatase Lactate Dehydrogenase Total Creatine Kinase Troponin I Total Protein Albumin Globulin Albumin/Globulin Ratio Venous Blood Potassium Urine Color Urine Appearance Urine pH Ur Specific [place] Urine Protein Urine Glucose (UA) Urine Ketones Urine Blood Urine Nitrate Urine Bilirubin Urine Urobilinogen Ur Leukocyte Esterase Urine RBC Urine WBC Ur Epithelial Cells Urine Bacteria Assessment & Plan - Assessment and Plan (Free Text) Assessment: 81 year old M s/p fall on anticoagulation with sacral decub. Plan: Consult wound care for stage 2 sacral decub. on left glute. No surgical intervention needed at this time. Will discuss case with Dr. Sascha Dixon PGY 1 - Date & Time Date: 05/24/17 Time: 09:58
[2017-05-24] MEDS ORDERED: Collagenase 250 Units/gm Ointment(30 gm) TOP SCH (10:00)
[2017-05-24] MEDS: Metoprolol Succinate 50 mg XL Tab PO SCH (10:20)
--- NOTE | 2017-05-24 11:09 | CARD ---
APPROVED REPORT EKG Measurement Heart [id number] <Conclusion> A Fib PVCs vs aberrancy Prolonged QT Abnormal ECG
[2017-05-24] MEDS: TraMADol/Apap 37.5/325 mg Tab PO PRN (11:34)
[2017-05-24] MEDS: Potassium Chloride 20 mEq ER Tab PO SCH (11:35)
[2017-05-24] MEDS: Silver Sulfadiazine 1% Cream (20 gm) TOP SCH ×2 (13:20→19:36)
[2017-05-24] MEDS: Nystatin 100,000 Units/gm Topical Pow(15 gm) TOP SCH ×2 (14:30→21:19)
[2017-05-24] MEDS ORDERED: Barium Sulfate Susp 2.1% w/v, 2.0% w/w 450 mL Bottle PO ONE (15:03)
[2017-05-24] MEDS: Meropenem 1g/NS 100mL IVPB 1 GM/100 ML PIGGYBACK IVPB SCH ×2 (15:30→21:18)
[2017-05-24] MEDS ORDERED: Piperacillin/Tazobact 3.375 gm 100 ML IVPB SCH (18:00)
--- NOTE | 2017-05-24 18:36 | CON ---
DATE: 05/24/2017 The patient seen earlier today in 276, bed 2. CHIEF COMPLAINT. Weakness being several days. 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 The patient is in poor condition and difficult to get any history . There has been no fevers documented. No trauma being documented. No dysuria, frequency, does have a Peralta catheter and not is quite sure about the symptoms. No chest pain or shortness of breath. No abdominal pain or diarrhea. PAST MEDICAL HISTORY: Significant for coronary artery disease, hypertension, diabetes, hyperlipidemia and hydronephrosis, renal failure, prostate obstruction or prostate disease, nephrolithiasis, congestive heart failure and history of right second finger infection with a sensitive staph aureus. SURGICAL HISTORY: Significant for cystoscopy, TURP and cardiac catheterization with stent placement. ALLERGIES: The patient has no known allergies. MEDICATIONS: At home include the patient to have metoprolol, lisinopril, hydrochlorothiazide, glyburide and aspirin. PHYSICAL EXAMINATION VITAL SIGNS: The patient is in bed with temperature of 97, blood pressure is 150/70, respiratory rate of 16, it was up to 24 earlier today and heart rate of 94, it was up to 97. HEENT: Unremarkable. NECK: Supple. LUNGS: Decreased breath sounds. HEART: Normal S1, S2. ABDOMEN: Soft and nontender. SCROTUM: He has few ulcers on his scrotum. He also has an ulcer in his decubitus as stage II and erythema. LABORATORY DATA: Reveals a white count of 13,400, hemoglobin of 13, platelets of 341, 86% granulocytosis and chemistries reveals a BUN of 20, creatinine of 0.8 and bilirubin is 1.8 and BMP is 784 with a urinalysis reveals too numerous to count wbc's and many bacteria. Microbiology is pending. ASSESSMENT AND PLAN: This is an 81-year-old male with diabetes, hypertension, coronary artery disease, hyperlipidemia, renal disease, prostate disease, nephrolithiasis, hydronephrosis, congestive heart failure, history of sensitive staph aureus right second finger infection, now presenting with tachycardia and leukocytosis. Urinalysis ____ sepsis with urine as the source underlying prostate disease. We will order a PSA level and urine culture, blood cultures and start the patient on meropenem empirically and order a CAT scan of the abdomen and pelvis to rule out hydronephrosis with p.o. contrast and they will make further recommendations upon availability of initial results. The patient had PET scan results, PSA results and cultures. Start empirically on meropenem and should have a urology evaluation. Marin Callejas MD
--- NOTE | 2017-05-24 21:38 | CT ---
EXAM: CT Abdomen and Pelvis Without Intravenous Contrast CLINICAL HISTORY: 81 years old, male; Abnormal findings; Abnormal lab test; Elevated wbc; Additional info: Inc wbc R/O hydroneph TECHNIQUE: Axial computed tomography images of the abdomen and pelvis without intravenous contrast. This CT exam was performed using one or more of the following dose reduction techniques: automated exposure control, adjustment of the mA and/or kV according to patient size, and/or use of iterative reconstruction technique. Coronal and sagittal reformatted images were created and reviewed. EXAM DATE/TIME: 05/24/2017 2:59 PM COMPARISON: CT HIP W/O CONTRAST BILATERAL 05/23/2017 11:12:35 PM FINDINGS: Artifacts: Motion artifact degrades image quality. Lower thorax: The heart is mildly enlarged. There are coronary calcifications. There is scarring at the lung bases. There is dependent airspace disease. ABDOMEN: Liver: unremarkable Gallbladder and bile ducts: Gallbladder is distended with layering stones. Gallbladder measures at least 12 cm in line Common bile duct is unremarkable. Pancreas: Pancreas is markedly atrophic. Spleen: unremarkable Adrenals: Right adrenal is unremarkable. There is a small left adrenal nodule. Kidneys and ureters: There our small right retroperitoneal cyst.. Right kidney is atrophic. There is a nonobstructing right lower pole renal stone. There is no pelvocaliectasis or ureterectasis. There is a left renal cyst. There are no left renal stones.There is no pelvocaliectasis or ureterectasis. Stomach and bowel: Stomach is partially distended. Rotation is normal. There is no obstruction. Terminal ileum is unremarkable. Appendix is unremarkable.Colon is incompletely distended which limits evaluation.There is diverticulosis. Appendix: See stomach and bowel PELVIS: Bladder: Bladder is almost completely empty. There is a Peralta catheter. There is bladder wall thickening. There is air in the bladder. There are stones in the bladder. Reproductive: Prostate is mildly enlarged. Seminal vesicles are unremarkable. ABDOMEN and PELVIS: Intraperitoneal space:There is no free air. Bones/joints: Bony structures are osteopenic.There are degenerative changes in the osseus structures. Soft tissues: There is a small fat containing umbilical hernia. Vasculature: There are calcified phleboliths. There are vascular calcifications. Lymph nodes: There is no pathologic adenopathy. IMPRESSION: Distended gallbladder with stones; mild right renal atrophy with nonobstructing right renal stone, no obstructing renal or ureteral stones or hydronephrosis; bladder wall thickening and bladder stones; no CT findings of appendicitis or diverticulitis; dependent airspace disease most likely atelectasis Additional findings as described above.
--- NOTE | 2017-05-24 22:54 | HP ---
HISTORY OF PRESENT ILLNESS: The patient is 81 years old, known to me from our office practice. The patient felt very week and dizzy and fell, was found to be somewhat confused and disoriented, so he came to emergency room, because of his pain in the buttock area, and also had scrotal discomfort. Denies any fever or chills at home, no history of nausea or vomiting. He is complaining of feeling weak and dizzy. PAST MEDICAL HISTORY: Significant for: 1. Chronic atrial fibrillation. 2. Emr-csxsjzm-rwmvzllxm diabetes, very poorly complaint with medication and diet. 3. Hypertension. 4. History of congestive heart failure. 5. Chronic back pain. PAST SURGICAL HISTORY: Significant for transurethral prostatic resection. ALLERGIES: HE IS NOT ALLERGIC TO ANY MEDICATIONS. MEDICATION AT HOME: He is on tramadol, he is on metoprolol 50 mg daily, lisinopril 20/25 daily, Glucovance 5/500 twice a day, aspirin 81 daily, Eliquis 5 mg twice a day. SOCIAL HISTORY: He used to be heavy smoker for many years, quit 40 year ago. His of colon cancer 4-5 years ago. REVIEW OF SYSTEMS: Significant for generalized weakness, back pain, perirectal pain. PHYSICAL EXAMINATION: GENERAL: He is sleepy, but arousable. VITAL SIGNS: He is afebrile, pulse 60, respiration 16, blood pressure 153/71. LUNGS: Bilateral fair airflow. No rhonchi or crackle. HEART: S1 and S2, audible. ABDOMEN: Soft, obese, nontender. No rebound, no guarding. NEUROLOGIC: The patient is awake and alert, able to communicate, sleepy, but arousable. Answers appropriately. RECTAL: His left testicle at the base, he has ulceration with whitish debris and also has left perirectal ulceration. EXTREMITIES: Bilateral legs, no edema. LABORATORY EXAMINATION: WBC 15.4, hemoglobin 12.6, hematocrit 37.4, platelets of 329. Chemistry; sodium 138, potassium 3.5, chloride 100, CO2 of 28, BUN 18, creatinine 0.9, and blood sugar . Total bilirubin 1.8. EKG shows AFib with multiple PVCs. Lumbar CT scan shows moderate degenerative disk disease. CT-scan of the head is unremarkable. CT scan of the hip, no acute fracture. ASSESSMENT AND PLAN: 1. Status post fall. 2. Chronic atrial fibrillation. 3. Scrotal ulcer. 4. Left buttock ulcer. 5. Hxt-zzimexn-aurydmysf diabetes. PLAN: The patient is currently on aspirin 81 daily. He is on Eliquis. He has been started on fingerstick. Potassium is supplemented. I will start him on Zosyn. Awaiting ID input. Encourage physical therapy. Follow up this patient in a.m. Melissa Alfaro MD
--- NOTE | 2017-05-25 02:54 | CON ---
DATE: 05/24/2017 HISTORY OF PRESENT ILLNESS: The patient is an 81-year-old man who is a diabetic, on Eliquis. He has a history of congestive heart failure and hypertension. He fell and hit his head. No loss of consciousness. It is unclear whether the Peralta catheter was placed in the ER as the patient came with it. He says he did not, but he has a Peralta catheter draining mariangel urine. Consultation was requested for a possible scrotal infection. The patient currently has no fever or chills. FAMILY HISTORY: Noncontributory. SOCIAL HISTORY: Noncontributory. He does not smoke. He is a former smoker. ALLERGIES: HE HAS NO ALLERGIES. MEDICATIONS: At home, he takes glyburide, aspirin, Eliquis, Toprol, lisinopril and hydrochlorothiazide. REVIEW OF SYMPTOMS: Currently, no symptoms referable today of head, eyes, ears, nose and throat. No chest pain. No gastrointestinal symptoms. No shortness of breath. No symptoms referable to the urinary tract that he is complaining of the Peralta is indwelling. PHYSICAL EXAMINATION: VITAL SIGNS: Examination shows him to be afebrile, pulse 96, blood pressure 125/64. HEENT: normocephalic. Sclerae are clear. Conjunctivae not injected. NECK: No CVA pain. ABDOMEN: No hepatosplenomegaly, rebound or guarding. No suprapubic fullness or tenderness. GENITALIA: The scrotum has some ulcerations on it with minimal necrotic debris. I think these are more pressure sores. There is no evidence of any cellulitis or scrotal abscess. Testicles themselves are normal as is the epididymis. He tends to sit on his scrotum which is underneath his buttocks each time I see him, we elevated them and told the nurses to place a towel or some type of washcloth to keep it elevated. There is no crepitus present and nothing that requires surgical intervention in my opinion at this time. LABORATORY DATA: His lab work shows a white count of 3400. Chemistries show glucose 252, creatinine is 0.9 with a BUN of 18. He has a Peralta indwelling. He is currently on one dose of vancomycin which he received and Zosyn, which was switched to meropenem 1 g q.8 by ID. IMPRESSION: He has some scrotal ulceration. No evidence that requires any surgical intervention at this time. I would use Betadine wet to dry to debride it. I do not think this is a source of his fever. The patient had a CAT scan ordered by Dr. Callejas. We will await for that to be done to rule out any hydro. We will follow him with you. Caesar Edmond MD
[2017-05-25] MEDS: Meropenem 1g/NS 100mL IVPB 1 GM/100 ML PIGGYBACK IVPB SCH ×3 (05:14→21:39)
[2017-05-25] MEDS: Nystatin 100,000 Units/gm Topical Pow(15 gm) TOP SCH ×3 (05:14→21:41)
[2017-05-25 07:41] LABS: ADD MANUAL DIFF? NO
[2017-05-25 07:43] LABS: BASO # 0.01 K/mm3 (0.0-2.0); BASO % 0.1 % (0.0-3.0); EOS # 0.1 (0.0-0.7); EOS % 0.8 % (1.5-5.0); GRAN # 12.68 (1.4-6.5); GRAN % 86.1 % (50.0-68.0); HEMATOCRIT 35.5 % (42.0-52.0); LYMPH % 6.5 % (22.0-35.0); MEAN CELL VOLUME 90.1 fL (80.0-105.0); MEAN CORPUSCULAR HEMOGLOBIN 30.2 pg (25.0-35.0); MEAN CORPUSCULAR HGB CONC 33.5 g/dl (31.0-37.0); MEAN PLATELET VOLUME 9.7 fl (7.0-11.0); MONO % 6.5 % (1.0-6.0); PLATELET COUNT 349 10^3/uL (120.0-450.0); RED CELL DISTRIBUTION WIDTH 13.9 % (11.5-14.5); WHITE BLOOD COUNT 14.7 10^3/ul (4.5-11.0)
[2017-05-25 08:04] LABS: ALB/GLOB RATIO 0.8 (1.1-1.8); ALKALINE PHOSPHATASE 78 U/L (38-133); ALT/SGPT 29 U/L (7-56); AST/SGOT 32 U/L (15-59); BILIRUBIN,TOTAL 1.1 mg/dL (0.2-1.3); BLOOD UREA NITROGEN 18 mg/dL (7-21); CALCIUM 8.8 mg/dL (8.4-10.5); CARBON DIOXIDE 32 mmol/L (21-33); CHLORIDE 96 mmol/L (95-110); GFR AFRICAN-AMERICAN > 60; GLUCOSE,RANDOM 149 mg/dL (70-110); POTASSIUM 3.6 mmol/L (3.6-5.0); SODIUM 135 mmol/L (132-148); TOTAL PROTEIN 6.2 g/dL (5.8-8.3)
[2017-05-25] MEDS: Insulin Lispro (HUMAlog) HIGH Coverage SC SCH ×4 (08:23→22:00)
[2017-05-25] MEDS: Potassium Chloride 20 mEq ER Tab PO SCH (08:26)
[2017-05-25] MEDS: Metoprolol Succinate 50 mg XL Tab PO SCH (10:03)
[2017-05-25] MEDS: Silver Sulfadiazine 1% Cream (20 gm) TOP SCH ×2 (10:04→17:08)
--- NOTE | 2017-05-25 11:11 | PN ---
DATE: 05/25/2017 SUBJECTIVE: The patient is in bed in no acute distress, nontoxic; was seen earlier this morning. No fevers or chills. PHYSICAL EXAMINATION: VITAL SIGNS: Temperature is 98, blood pressure is 120/70, respiratory rate of 18. HEENT: Unremarkable. NECK: Supple. LUNGS: Decreased breath sounds. HEART: Normal S1 and S2. ABDOMEN: Soft and nontender. LABORATORY DATA: Reveals a white count of 14,000, hemoglobin of 11, and platelets of 349; BUN of 18, creatinine of 1.0, PSA of 5.6. The patient's BMP of 784. Urinalysis is noted, too numerous to count many bacteria. Blood cultures, no growth. Skin cultures, gram-negative juan and a corynebacterium. Currently, the patient's urine cultures are pending, and the patient is currently on meropenem, and Dr. Edmond's consultation from yesterday is reviewed, scrotal ulceration, and the CAT scan of the abdomen and pelvis reveals the heart is moderately enlarged. There is coronary calcifications. Scaring at the bases. Liver is unremarkable. Distended gallbladder with stones with a mild right renal atrophy and nonobstructive right renal stone and no obstruction; no ureteral stones; no hydronephrosis. There is bladder wall thickening and bladder stone and there is no appendicitis and no diverticulitis and the common bile duct is unremarkable. 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 We will continue the meropenem. Check on the urine cultures and the patient does have elevated prostate antigen and also order a HIDA scan to rule out a biliary tract disease. We will make further recommendations once the urine culture and HIDA scan results are available. Marin Callejas MD [facility] # [id number]
--- NOTE | 2017-05-25 13:29 | NM ---
PROCEDURE: Nuclear Medicine Hepatobiliary Scan HISTORY: r/o gb ds COMPARISON: May 24, 2017. CT abdomen and pelvis. TECHNIQUE: 5.3 mCi of technetium 99m Mebrofenin was administered intravenously. Planar images of the abdomen were obtained at 5 min intervals to 60 mins. Delayed images were also obtained. FINDINGS: LIVER: Timely and homogenous uptake. COMMON BILE DUCT: identified at 5 mins. GALLBLADDER: identified at 30 mins. SMALL BOWEL: Identified at 15 mins. IMPRESSION: Normal Hepatobiliary Scan. The cystic duct is patent.
--- NOTE | 2017-05-25 22:03 | PN ---
SUBJECTIVE: The patient is 81 years old seen and examined seems to be much more awake and alert. PHYSICAL EXAMINATION VITAL SIGNS: He is afebrile, pulse 63, respirations 18, and blood pressure 115/65. LUNGS: Bilateral fair airflow. No rhonchi or crackle. HEART: S1, S2 audible. ABDOMEN: Soft, obese, nontender. No rebound. No guarding. NEUROLOGIC: He is awake and alert, able to communicate. LABORATORY DATA: WBC is 14.7, hemoglobin 11.9, hematocrit 35, platelet 349. Chemistries; sodium 135, potassium 3.6, chloride 96, CO2 of 32, BUN 18, creatinine 1.0, blood sugar 326. Urine shows positive nitrite. Urine drug screen is negative. His wound culture is positive for gram-negative juan, corynebacterium. Urine shows gram-negative rods. Blood also show gram-negative juan. ASSESSMENT: 1. Probably urosepsis. 2. Non-obstructing right renal stone. 3. Chronic atrial fibrillation. 4. Non insulin-dependent diabetes. 5. Hypertension. 6. Hyperlipidemia. 7. Scrotal cellulitis. 8. Left buttock sacral ulcer. PLAN: The patient hemodynamically stable. We discontinued telemetry. We will continue him on Eliquis. He is on aspirin. He is getting meropenem and he is on tramadol as needed and encourage physical therapy. We will repeat blood cultures and will followup the patient in a.m. Melissa Alfaro MD
[2017-05-26] MEDS: Meropenem 1g/NS 100mL IVPB 1 GM/100 ML PIGGYBACK IVPB SCH ×3 (05:21→22:00)
[2017-05-26 06:50] LABS: ADD MANUAL DIFF? NO
[2017-05-26 07:06] LABS: BASO # 0.01 K/mm3 (0.0-2.0); BASO % 0.1 % (0.0-3.0); EOS # 0.1 (0.0-0.7); EOS % 1.1 % (1.5-5.0); GRAN # 8.58 (1.4-6.5); GRAN % 82.4 % (50.0-68.0); HEMATOCRIT 40.3 % (42.0-52.0); LYMPH # 0.9 (1.2-3.4); LYMPH % 8.8 % (22.0-35.0); MEAN CELL VOLUME 90.4 fL (80.0-105.0); MEAN CORPUSCULAR HGB CONC 33.3 g/dl (31.0-37.0); MEAN PLATELET VOLUME 10.1 fl (7.0-11.0); MONO # 0.8 (0.1-0.6); MONO % 7.6 % (1.0-6.0); PLATELET COUNT 383 10^3/uL (120.0-450.0); RED CELL DISTRIBUTION WIDTH 13.7 % (11.5-14.5); WHITE BLOOD COUNT 10.4 10^3/ul (4.5-11.0)
[2017-05-26 07:29] LABS: ALB/GLOB RATIO 0.7 (1.1-1.8); ALKALINE PHOSPHATASE 83 U/L (38-133); ALT/SGPT 26 U/L (7-56); AST/SGOT 32 U/L (15-59); BILIRUBIN,TOTAL 1.3 mg/dL (0.2-1.3); BLOOD UREA NITROGEN 20 mg/dL (7-21); CARBON DIOXIDE 28 mmol/L (21-33); CHLORIDE 93 mmol/L (98-107); GFR AFRICAN-AMERICAN > 60; GLUCOSE,RANDOM 151 mg/dL (70-110); POTASSIUM 3.9 mmol/L (3.6-5.0); SODIUM 132 mmol/L (132-148); TOTAL PROTEIN 7.1 g/dL (5.8-8.3)
[2017-05-26] MEDS: Insulin Lispro (HUMAlog) HIGH Coverage SC SCH ×4 (07:55→22:19)
[2017-05-26] MEDS: Potassium Chloride 20 mEq ER Tab PO SCH (08:21)
[2017-05-26] MEDS: Metoprolol Succinate 50 mg XL Tab PO SCH (09:49)
[2017-05-26] MEDS: TraMADol/Apap 37.5/325 mg Tab PO PRN (10:15)
--- NOTE | 2017-05-26 12:12 | PN ---
DATE: 05/26/2017 SUBJECTIVE: The patient is in bed, in no acute distress, nontoxic. PHYSICAL EXAMINATION VITAL SIGNS: Temperature is 98, blood pressure is 145/70, and respiratory rate of 98. HEENT: Unremarkable. NECK: Supple. LUNGS: Decreased breath sounds. HEART: Normal S1 and S2. ABDOMEN: Soft and nontender. LABORATORY DATA: Revels the patient white count is down to 10,000, hemoglobin of 13. Chemistries are noted, BUN of 20, creatinine of 0.8, and PSA is elevated at 5.6. Urinalysis is noted. Microbiology reveals the Gram-negative juan, in the blood and in the urine. I was not notified of this Gram-negative juan in the blood. Review of orders reveals the patient to be on meropenem. ASSESSMENT AND PLAN: This is an 81-year-old male with seen early this morning, he is doing much better with diabetes, hypertension, dyslipidemia, history of right second finger infection with a sensitive Staphylococcus aureus is past, history of hydronephrosis and nephrolithiasis, and prostate disease, and renal failure, and congestive heart failure, and coronary artery disease, who is admitted now with sepsis with Gram-negative juan, bacteremia, and Gram-negative juan in the urine and we will continue with meropenem and pending identification of the Gram-negative juan in the blood and urine. The patient with prostatitis and Dr. Alfaro's note is reviewed. Marin Callejas MD
[2017-05-26] MEDS: Silver Sulfadiazine 1% Cream (20 gm) TOP SCH ×2 (14:16→17:40)
[2017-05-26] MEDS ORDERED: Oxycodone/Acetaminophen 5/325 mg Tab PO STA (14:28)
[2017-05-26] MEDS: Nystatin 100,000 Units/gm Topical Pow(15 gm) TOP SCH ×2 (14:48→21:54)
--- NOTE | 2017-05-26 20:10 | PN ---
SUBJECTIVE: The patient is 81 years old seen and examined seems to be more awake and alert. No fever. No chills. No nausea or vomiting. No diarrhea. Eating fair. Has dark urine in the Peralta catheter. PHYSICAL EXAMINATION VITAL SIGNS: He is afebrile, pulse 83, respirations 18, and blood pressure 145/75. LUNGS: Bilateral fair airflow. No rhonchi or crackle. HEART: S1 and S2 audible. ABDOMEN: Soft, nontender. No rebound. No guarding. NEUROLOGIC: The patient is awake and alert. Able to move all extremities. LABORATORY DATA: WBC is 10.4, hemoglobin 13, hematocrit 40, platelet 383. Chemistries; sodium 132, potassium 3.9, chloride 93, CO2 of 28, BUN 20, creatinine 0.8, blood sugar 226. ASSESSMENT: 1. Gram-negative sepsis, one out of 2 blood culture positive pseudomonas aeruginosa urinary tract infection. 2. Pseudomonas aeruginosa and corynebacterium and coagulase negative Staphylococcus infection of scrotum. 3. Sepsis. 4. Left buttock sacral decubitus. 5. Atrial fibrillation. 6. Hypertension. 7. Noninsulin-dependent diabetes. PLAN: The patient is currently on meropenem. Monitor blood sugar. Physical therapy evaluation has been requested, also request for TCU evaluation and will reevaluate the patient in a.m. Melissa Alfaro MD
[2017-05-27] MEDS: Nystatin 100,000 Units/gm Topical Pow(15 gm) TOP SCH ×3 (05:44→21:42)
[2017-05-27] MEDS: TraMADol/Apap 37.5/325 mg Tab PO PRN ×2 (05:45→13:41)
[2017-05-27] MEDS: Meropenem 1g/NS 100mL IVPB 1 GM/100 ML PIGGYBACK IVPB SCH ×3 (05:45→21:36)
[2017-05-27] MEDS: Insulin Lispro (HUMAlog) HIGH Coverage SC SCH ×4 (08:17→22:30)
[2017-05-27] MEDS: Potassium Chloride 20 mEq ER Tab PO SCH (08:25)
[2017-05-27] MEDS: Metoprolol Succinate 50 mg XL Tab PO SCH (09:02)
[2017-05-27] MEDS: Silver Sulfadiazine 1% Cream (20 gm) TOP SCH (10:20)
--- NOTE | 2017-05-27 11:39 | PN ---
DATE: 05/27/2017 SUBJECTIVE: The patient does not complain of any chest pain, shortness of breath, or headaches. PHYSICAL EXAMINATION: VITAL SIGNS: Temperature 98.3, pulse of 84, blood pressure 134/81, and respirations 18. GENERAL: The patient is comfortable, in no acute distress. HEENT: Anicteric sclerae. Moist mucosa. NECK: No JVD or adenopathy. CARDIAC: S1, S2. No murmurs. No rubs. Regular. RESPIRATORY: Clear to auscultation bilaterally. No wheezes, rales, or rhonchi. Good air entry. ABDOMEN: Bowel sounds are positive, soft, nontender, and nondistended. EXTREMITIES: No edema. Has 1+ pulses. LABORATORY DATA: White count of 10.4 and hemoglobin 13.4. Creatinine is 0.8. ASSESSMENT: 1. Urinary tract infection secondary to pseudomonas. 2. Left buttock sacral pressure ulcer. 3. Atrial fibrillation. 4. Hypertension. 5. Diabetes type 2. PLAN: The patient is on aspirin. He is going to continue on Eliquis. The patient is on Januvia for diabetes. He is on meropenem for antibiotics. The patient is getting local wound care for the ulcer. He is on Zestril for hypertension. He is on a heart healthy diet. Pardeep Jorge MD
--- NOTE | 2017-05-27 14:52 | PN ---
DATE: 05/27/2017 SUBJECTIVE: The patient is in bed, in no acute distress, nontoxic. PHYSICAL EXAMINATION: VITAL SIGNS: Temperature is 98, blood pressure is 130/80, respiratory rate of 18, heart rate of 72. HEENT: Unremarkable. NECK: Supple. LUNGS: Decreased breath sounds. HEART: Normal S1 and S2. ABDOMEN: Soft, nontender. LABORATORY DATA: Reveals a white count of 10,000; hemoglobin of 13; platelets of 383. BUN of 20, creatinine of 0.8. Urinalysis is noted. Microbiology reveals there is pseudomonas in the urine that is sensitive to meropenem. There is a Gram-negative juan in the blood, not been identified thus far. Review of orders reveals that the patient is to be on meropenem and the patient's PSA is elevated at 5.6. ASSESSMENT AND PLAN: This is an 81-year-old male with diabetes mellitus, hypertension, dyslipidemia, history of right second finger infection, sensitive staph in the past with a history of hydronephrosis, nephrolithiasis, prostate disease, renal disease, congestive heart failure, and coronary artery disease. Admitted on this admission with sepsis with Gram-negative juan bacteremia with pseudomonas in the urine. Awaiting for identification and sensitivity of the Gram-negative juan. Currently, on meropenem. With an elevated prostate specific antigen with prostatitis, awaiting for sensitivity and identification of the organism. Of note, that the pseudomonas in the urine is resistant to Cipro. Marin Callejas MD
[2017-05-28] MEDS: Meropenem 1g/NS 100mL IVPB 1 GM/100 ML PIGGYBACK IVPB SCH ×3 (05:22→21:30)
[2017-05-28] MEDS: Nystatin 100,000 Units/gm Topical Pow(15 gm) TOP SCH ×3 (07:00→22:00)
[2017-05-28] MEDS: Insulin Lispro (HUMAlog) HIGH Coverage SC SCH ×4 (07:42→22:13)
[2017-05-28] MEDS: Potassium Chloride 20 mEq ER Tab PO SCH (10:07)
[2017-05-28] MEDS: Metoprolol Succinate 50 mg XL Tab PO SCH (10:07)
[2017-05-28] MEDS: Silver Sulfadiazine 1% Cream (20 gm) TOP SCH ×2 (10:07→17:11)
--- NOTE | 2017-05-28 13:44 | PN ---
SUBJECTIVE: The patient is an 81 years old seen and examined. According to daughter who is by the bedside; he stated somewhat confused, otherwise he is doing better than before. He is awake, alert,oriented, and forgetful. PHYSICAL EXAMINATION VITAL SIGNS: He is afebrile, pulse 66, respirations 20, and blood pressure 112/60. LUNGS: Bilateral fair airflow. No rhonchi or crackle. HEART: S1 and S2 audible. ABDOMEN: Soft, nontender. No rebound. No guarding. NEUROLOGIC: He is awake and alert. Able to communicate. LABORATORY DATA: WBC is 10.4, hemoglobin 13.4, hematocrit 40, platelet 383. Chemistries; blood sugar is 272. Urine drug screen is negative. He had pseudomonas aeruginosa UTI and pseudomonas bacteremia. ASSESSMENT: 1. Pseudomonas urinary tract infection. 2. Sepsis, his repeat blood cultures are negative. 3. Pseudomonas aeruginosa and corynebacterium, coag negative, scrotal skin infection. 4. Left buttock decubitus ulcer. 5. Atrial fibrillation. 6. Hypertension. 7. History of benign prostatic hypertrophy. PLAN: We will continue to monitor the patient's blood sugar. Continue him on meropenem. Discussed with therapist. He needs physical therapy. TCU evaluation has been requested can be transferred to TCU. Melissa Alfaro MD
--- NOTE | 2017-05-28 15:37 | CP.PCM.PN ---
Subjective - Date & Time of Evaluation Date of Evaluation: 05/28/17 Time of Evaluation: 10:00 - Subjective Subjective: Comfortable on a chair, no diarrhea, no nausea, no fevers overnight. Objective - Vital Signs/Intake and Output Vital Signs (last 24 hours): Temp Pulse Resp BP Pulse Ox 97.9 F 66 20 112/60 98 05/28/17 07:39 05/28/17 07:39 05/28/17 07:39 05/28/17 07:39 05/28/17 07:39 Intake and Output: 05/28/17 05/28/17 06:59 18:59 Intake Total 0 360 Output Total 900 800 Balance -900 -440 - Medications Medications: Current Medications Apixaban (Eliquis) 5 mg PO BID [facility] PRN Reason: Protocol Last Admin: 05/27/17 17:32 Dose: 5 mg Aspirin (Ecotrin) 81 mg PO DAILY [facility] Last Admin: 05/27/17 09:02 Dose: 81 mg Hydrochlorothiazide (Hydrodiuril) 25 mg PO DAILY [facility] Last Admin: 05/27/17 09:00 Dose: 25 mg Meropenem 1g/NS 100mL IVPB (Meropenem 1g/Ns 100ml Ivpb) 1 gm in 100 mls @ 100 mls/hr IVPB Q8 [facility] PRN Reason: Protocol Stop: 08/31/17 14:53 Last Admin: 05/28/17 05:22 Dose: 100 mls/hr Insulin Human Lispro (Humalog High) 0 units SC ACHS [facility] PRN Reason: Protocol Last Admin: 05/28/17 07:42 Dose: 2 units Lisinopril (Zestril) 20 mg PO DAILY [facility] Last Admin: 05/27/17 09:01 Dose: 20 mg Metformin HCl (Glucophage) 500 mg PO BID [facility] Last Admin: 05/27/17 17:32 Dose: 500 mg Metoprolol Succinate (Toprol Xl) 50 mg PO DAILY [facility] Last Admin: 05/27/17 09:02 Dose: 50 mg Nystatin (Nystop Topical Powder) 0 gm TOP Q8 [facility] Last Admin: 05/27/17 21:42 Dose: 1 applic Potassium Chloride (K-Dur 20 Meq Er Tab) 20 meq PO BRK [facility] Last Admin: 05/27/17 08:25 Dose: 20 meq Silver Sulfadiazine (Silvadene 1% 20 Gm) 0 ea TOP BID [facility] Last Admin: 05/27/17 10:20 Dose: 1 applic Sitagliptin Phosphate (Januvia) 100 mg PO DAILY [facility] Last Admin: 05/27/17 09:02 Dose: 100 mg Tramadol/Acetaminophen (Ultracet 37.5/325 Mg) 1 tab PO Q6 PRN PRN Reason: Pain Last Admin: 05/27/17 13:41 Dose: 1 tab - Labs Labs: 05/26/17 06:00 05/26/17 06:00 - Constitutional Appears: Non-toxic, No Acute Distress - Head Exam Head Exam: NORMAL INSPECTION - Neck Exam Neck Exam: absent: Meningismus - Respiratory Exam Respiratory Exam: Decreased Breath Sounds - Cardiovascular Exam Cardiovascular Exam: +S1, +S2 - GI/Abdominal Exam GI & Abdominal Exam: Soft. absent: Tenderness Assessment and Plan - Assessment and Plan (Free Text) Assessment: Assessment Sepsis due to Pseudomonas bacteremia with probable prostatitis history of right 2nd finger abscess / purulent skin and skin structure infection S/P I and D DM atrial fibrillation obesity with BMI 35 Plan continue patient on Cefepime and will monitor clinically; follow up repeat blood cx
[2017-05-29] MEDS: Meropenem 1g/NS 100mL IVPB 1 GM/100 ML PIGGYBACK IVPB SCH ×2 (05:08→13:26)
[2017-05-29] MEDS: Nystatin 100,000 Units/gm Topical Pow(15 gm) TOP SCH ×2 (05:09→13:26)
[2017-05-29 08:01] LABS: ADD MANUAL DIFF? NO
[2017-05-29 08:02] VITALS: BP 127/57; PULSE 63; RESP 18; TEMP 97.8; O2SAT 96
[2017-05-29 08:03] LABS: BASO # 0.02 K/mm3 (0.0-2.0); BASO % 0.2 % (0.0-3.0); EOS # 0.1 (0.0-0.7); EOS % 0.5 % (1.5-5.0); GRAN # 9.27 (1.4-6.5); GRAN % 81.1 % (50.0-68.0); HEMATOCRIT 40.4 % (42.0-52.0); LYMPH # 1.3 (1.2-3.4); LYMPH % 11.3 % (22.0-35.0); MEAN CELL VOLUME 89.8 fL (80.0-105.0); MEAN CORPUSCULAR HGB CONC 33.4 g/dl (31.0-37.0); MEAN PLATELET VOLUME 10.1 fl (7.0-11.0); MONO # 0.8 (0.1-0.6); MONO % 6.9 % (1.0-6.0); PLATELET COUNT 439 10^3/uL (120.0-450.0); RED CELL DISTRIBUTION WIDTH 13.6 % (11.5-14.5); WHITE BLOOD COUNT 11.4 10^3/ul (4.5-11.0)
[2017-05-29] MEDS: Insulin Lispro (HUMAlog) HIGH Coverage SC SCH ×3 (08:23→17:16)
[2017-05-29] MEDS: Potassium Chloride 20 mEq ER Tab PO SCH (08:24)
[2017-05-29 08:33] LABS: ALB/GLOB RATIO 0.7 (1.1-1.8); ALKALINE PHOSPHATASE 83 U/L (38-133); ALT/SGPT 41 U/L (7-56); AST/SGOT 87 U/L (15-59); BILIRUBIN,TOTAL 1.1 mg/dL (0.2-1.3); BLOOD UREA NITROGEN 35 mg/dL (7-21); CALCIUM 9.5 mg/dL (8.4-10.5); CARBON DIOXIDE 30 mmol/L (21-33); CHLORIDE 94 mmol/L (95-110); GFR AFRICAN-AMERICAN > 60; GLUCOSE,RANDOM 183 mg/dL (70-110); POTASSIUM 4.1 mmol/L (3.6-5.0); SODIUM 133 mmol/L (132-148); TOTAL PROTEIN 6.9 g/dL (5.8-8.3)
[2017-05-29] MEDS: Metoprolol Succinate 50 mg XL Tab PO SCH (09:12)
[2017-05-29] MEDS: Silver Sulfadiazine 1% Cream (20 gm) TOP SCH ×2 (09:13→17:29)
--- NOTE | 2017-05-29 13:59 | PN ---
DATE: 05/29/2017 The patient's scrotum is healing nicely. The area of erosion appears to be closing in. He is getting Silvadene, I think a little clear on its own. There is no evidence of any cellulitis or crepitus. The issue is keeping the scrotum elevated, so he is not lying on it and nurses should continue to do that. Caesar Edmond MD
--- NOTE | 2017-05-29 15:14 | CP.PCM.PN ---
Subjective - Date & Time of Evaluation Date of Evaluation: 05/29/17 Time of Evaluation: 10:00 - Subjective Subjective: Comfortable on a chair, not in distress, no fevers overnight. Objective - Vital Signs/Intake and Output Vital Signs (last 24 hours): Temp Pulse Resp BP Pulse Ox 97.8 F 63 18 127/57 L 96 05/29/17 08:01 05/29/17 09:12 05/29/17 08:01 05/29/17 09:12 05/29/17 08:01 Intake and Output: 05/29/17 05/29/17 06:59 18:59 Intake Total 200 0 Output Total 200 150 Balance 0 -150 - Medications Medications: Current Medications Apixaban (Eliquis) 5 mg PO BID [facility] PRN Reason: Protocol Last Admin: 05/29/17 09:11 Dose: 5 mg Aspirin (Ecotrin) 81 mg PO DAILY [facility] Last Admin: 05/29/17 09:12 Dose: 81 mg Hydrochlorothiazide (Hydrodiuril) 25 mg PO DAILY [facility] Last Admin: 05/29/17 09:12 Dose: 25 mg Meropenem 1g/NS 100mL IVPB (Meropenem 1g/Ns 100ml Ivpb) 1 gm in 100 mls @ 100 mls/hr IVPB Q8 [facility] PRN Reason: Protocol Stop: 08/31/17 14:53 Last Admin: 05/29/17 05:08 Dose: 100 mls/hr Insulin Human Lispro (Humalog High) 0 units SC ACHS [facility] PRN Reason: Protocol Last Admin: 05/29/17 08:23 Dose: 4 units Lisinopril (Zestril) 20 mg PO DAILY [facility] Last Admin: 05/29/17 09:11 Dose: 20 mg Metformin HCl (Glucophage) 500 mg PO BID [facility] Last Admin: 05/29/17 09:12 Dose: 500 mg Metoprolol Succinate (Toprol Xl) 50 mg PO DAILY [facility] Last Admin: 05/29/17 09:12 Dose: 50 mg Nystatin (Nystop Topical Powder) 0 gm TOP Q8 [facility] Last Admin: 05/29/17 05:09 Dose: 1 applic Potassium Chloride (K-Dur 20 Meq Er Tab) 20 meq PO BRK [facility] Last Admin: 05/29/17 08:24 Dose: 20 meq Silver Sulfadiazine (Silvadene 1% 20 Gm) 0 ea TOP BID [facility] Last Admin: 05/29/17 09:13 Dose: 1 applic Sitagliptin Phosphate (Januvia) 100 mg PO DAILY [facility] Last Admin: 05/29/17 09:12 Dose: 100 mg Tramadol/Acetaminophen (Ultracet 37.5/325 Mg) 1 tab PO Q6 PRN PRN Reason: Pain Last Admin: 05/27/17 13:41 Dose: 1 tab - Labs Labs: 05/29/17 07:30 05/29/17 07:30 - Constitutional Appears: Non-toxic, No Acute Distress - Head Exam Head Exam: NORMAL INSPECTION - Neck Exam Neck Exam: absent: Meningismus - Respiratory Exam Respiratory Exam: Decreased Breath Sounds - Cardiovascular Exam Cardiovascular Exam: +S1, +S2 - GI/Abdominal Exam GI & Abdominal Exam: Soft. absent: Tenderness Assessment and Plan - Assessment and Plan (Free Text) Plan: Assessment Sepsis due to Pseudomonas bacteremia with probable prostatitis history of right 2nd finger abscess / purulent skin and skin structure infection S/P I and D DM atrial fibrillation obesity with BMI 35 Plan continue patient on Merrem (day 5) - should complete 3-4 weeks of antibiotics and will continue to monitor clinically; repeat blood cx are negative
[2017-05-29] MEDS ORDERED: Lidocaine 2% Inj (20ml) ONE (15:28)
--- NOTE | 2017-05-29 18:46 | VASCULAR ---
PROCEDURE: Ultrasound and fluoroscopically placed left upper extremity PICC line. HISTORY: Sepsis. Acute prostatitis. Long-term IV antibiotics. Needs PICC line. PHYSICIAN(S): Jonathan Webb MD. TECHNIQUE: The relative risks and indications of the procedure were explained to the patient and consent obtained. The patient was placed supine on the arteriogram table and the left arm prepped and draped in the usual sterile fashion. A tourniquet was applied to the left axilla. 1% Xylocaine was used to anesthetize the skin and soft tissues at the puncture site above the elbow. The left basilic vein was punctured under direct ultrasound guidance with a micropuncture set. A 0.018 guidewire was advanced centrally and used to measure the length to the SVC/RA junction. A 5 Ethiopian single-lumen PICC line 50 cm long was advanced to the SVC/RA junction. The catheter was flushed and secured. The patient tolerated the procedure well. IMPRESSION: 1. Ultrasound and fluoroscopically placed left upper extremity PICC line. A 5 Ethiopian single-lumen PICC line 50 cm long was advanced to the SVC/RA junction.
--- NOTE | 2017-05-30 03:18 | DS ---
HISTORY OF PRESENT ILLNESS: The patient is 81 years old, seen and examined, lying in bed, seems to be comfortable. Not really stable to walk. Eating and tolerating. Daughter by the bedside. PHYSICAL EXAMINATION: VITAL SIGNS: The patient is afebrile, pulse 63, respirations 18, and blood pressure 127/57. LUNGS: Bilateral good air flow. No rhonchi or crackle. HEART: S1 and S2 audible. ABDOMEN: Soft, obese and nontender. No rebound. No guarding. NEUROLOGIC: He is awake and alert, confused at times. EXTREMITIES: Bilateral legs, no edema. LABORATORY DATA: WBC is 11.4, hemoglobin 13, hematocrit 40, and platelet of 439. Chemistry: Sodium 133, potassium 4.1, chloride 94, CO2 of 30, BUN 35, and creatinine 1.0. Blood sugar of 263. Urine drug screen is negative. His blood culture positive for Pseudomonas aeruginosa and urine is also positive for Pseudomonas. ASSESSMENT: 1. Status post sepsis. 2. Pseudomonas urinary tract infection. 3. Noninsulin-dependent diabetes. 4. Hypertension. 5. Chronic atrial fibrillation. PLAN: Currently, the patient is on Eliquis 5 mg twice a day. He is on aspirin and metformin 500 twice a day. He is on Januvia. Potassium is supplemented. He is on meropenem and the patient is scheduled to have PICC line placed today. After that, he will be transfer to [facility] for rehab and completion of course of antibiotic and follow up the patient in [facility]. Melissa Alfaro MD
== END 2017-05-29 20:08 | DRG 872 ==
LOC: ED 21:04 → ERH 05-24 01:45 → 2RSO 05-24 03:52 → 3RNO 05-25 19:07
PROVIDERS: ADMIT Internal Medicine; ATTEND Internal Medicine
PROC: 02HV33Z Insertion of Infusion Device into Superior Vena Cava, Percutaneous Approach (ICD-10-PCS; principal; 2017-05-29)
PROC: B5181ZA Fluoroscopy of Superior Vena Cava using Low Osmolar Contrast, Guidance (ICD-10-PCS; 2017-05-29)
PROC: B54NZZA Ultrasonography of Left Upper Extremity Veins, Guidance (ICD-10-PCS; 2017-05-29)
DX: A41.52 Sepsis due to Pseudomonas (principal); L89.322 Pressure ulcer of left buttock, stage 2; I13.0 Hypertensive heart and chronic kidney disease with heart failure and stage 1 through stage 4 chronic kidney disease, or unspecified chronic kidney disease; E11.22 Type 2 diabetes mellitus with diabetic chronic kidney disease; I50.42 Chronic combined systolic (congestive) and diastolic (congestive) heart failure; N39.0 Urinary tract infection, site not specified; W18.30XA Fall on same level, unspecified, initial encounter; L89.899 Pressure ulcer of other site, unspecified stage; I48.2 Chronic atrial fibrillation; B95.7 Other staphylococcus as the cause of diseases classified elsewhere; E78.00 Pure hypercholesterolemia, unspecified; E78.5 Hyperlipidemia, unspecified; I25.10 Atherosclerotic heart disease of native coronary artery without angina pectoris; E66.9 Obesity, unspecified; Z68.35 Body mass index [BMI] 35.0-35.9, adult; K82.9 Disease of gallbladder, unspecified; Z87.442 Personal history of urinary calculi; Z87.440 Personal history of urinary (tract) infections; Z87.891 Personal history of nicotine dependence; Y93.01 Activity, walking, marching and hiking; N18.9 Chronic kidney disease, unspecified; N40.0 Benign prostatic hyperplasia without lower urinary tract symptoms; N41.9 Inflammatory disease of prostate, unspecified; N49.2 Inflammatory disorders of scrotum; N50.89 Other specified disorders of the male genital organs; Z16.23 Resistance to quinolones and fluoroquinolones; Z79.01 Long term (current) use of anticoagulants; Z79.82 Long term (current) use of aspirin; Z91.19 Patient's noncompliance with other medical treatment and regimen; Z91.81 History of falling; Z95.5 Presence of coronary angioplasty implant and graft; G89.29 Other chronic pain; M54.9 Dorsalgia, unspecified; R35.0 Frequency of micturition

== ENCOUNTER 2017-06-23 21:02 | Inpatient (IN) | payer MEDICARE, OTHER ==
[2017-06-23 21:03] VITALS: BMI 34.9
--- NOTE | 2017-06-23 21:33 | ED PDOC ---
Arrival/HPI - General Chief Complaint: Trauma Time Seen by Provider: 06/23/17 21:17 Historian: Patient - History of Present Illness Narrative History of Present Illness (Text): 06/23/17 21:30 Michael Walton is an 81 year old male, whose past medical history includes chronic back pain, atrial fibrillation, diabetes, CAD, and hypertension, who presents to the ED sent from retirement status post fall tonight. Patient states he accidentally slipped from his wheelchair to the ground and hit his his head. Patient complaining of discomfort to his lower back, which he normally has but appears to be increased post fall.. Patient denies any loss of consciousness, neck pain, headache, dizziness, chest pain, shortness of breath, nausea, vomiting, diarrhea, or any other complaints. Time/Duration: Other (tonight) Symptom Onset: Gradual Symptom Course: Unchanged Activities at Onset: Light Context: Home (retirement), Slipped Past Medical History - Provider Review Nursing Documentation Reviewed: Yes - Infectious Disease Hx of Infectious Diseases: None - Tetanus Immunization Tetanus Immunization: Unknown - Cardiac Hx Cardiac Disorders: Yes (cad) Hx Congestive Heart Failure: Yes - Pulmonary Hx Respiratory Disorders: No - Neurological Hx Neurological Disorder: No - HEENT Hx HEENT Disorder: Yes (uses glasses) - Renal Hx Renal Disorder: Yes Hx Kidney Stones: Yes (lithotripsy [facility]) - Endocrine/Metabolic Hx Diabetes Mellitus Type 2: Yes - Hematological/Oncological Hx Blood Disorders: No - Integumentary Hx Dermatological Disorder: No - Musculoskeletal/Rheumatological Hx Falls: Yes - Gastrointestinal Hx Gastrointestinal Disorders: No - Genitourinary/Gynecological Hx Genitourinary Disorders: Yes (frequency, bladder stone) Hx Hematuria: Yes (3 or 4 yrs ago) Hx Prostate Problems: Yes (prostate obstruction,cysotscopy) Hx Urinary Tract Infection: Yes - Psychiatric Hx Psychophysiologic Disorder: No Hx Depression: No Hx Emotional Abuse: No Hx Physical Abuse: No Hx Substance Use: No - Surgical History Hx Cardiac Catheterization: Yes Hx Coronary Stent: Yes - Anesthesia Hx Anesthesia: Yes Hx Anesthesia Reactions: No Hx Malignant Hyperthermia: No - Suicidal Assessment Feels Threatened In Home Enviroment: No Family/Social History - Physician Review Nursing Documentation Reviewed: Yes Family/Social History: Unknown Family HX Smoking Status: Former Smoker Hx Alcohol Use: No Hx Substance Use: No Hx Substance Use Treatment: No Allergies/Home Meds Allergies/Adverse Reactions: Allergies No Known Allergies Allergy (Verified 04/10/17 12:22) Home Medications: Home Meds Medication Instructions Recorded Confirmed Glyburide/Metformin HCl 1 tab PO BID 03/03/13 06/23/17 [Glyburide-Metformin 5-500 mg] Aspirin [Aspir 81] 81 mg PO PRN PRN 05/14/13 06/23/17 Metoprolol Succinate 50 mg PO DAILY 05/14/13 06/23/17 Apixaban [Eliquis] 5 mg PO BID 05/25/16 06/23/17 Lisinopril/Hydrochlorothiazide 1 tab PO DAILY 05/25/16 06/23/17 [Lisinopril-Hctz 20-25 mg Tab] Review of Systems - Physician Review All systems were reviewed & negative as marked: Yes - Review of Systems Constitutional: Normal. absent: Fevers Eyes: Normal ENT: Normal Respiratory: Normal. absent: SOB, Cough Cardiovascular: Normal. absent: Chest Pain, Syncope Gastrointestinal: Normal. absent: Abdominal Pain, Diarrhea, Nausea, Vomiting Genitourinary Male: Normal. absent: Dysuria, Frequency, Hematuria, Urinary Output Changes Musculoskeletal: Back Pain. absent: Neck Pain Skin: Normal. absent: Rash Neurological: Normal. absent: Headache, Dizziness Endocrine: Normal Hemo/Lymphatic: Normal Psychiatric: Normal Physical Exam Vital Signs Reviewed: Yes Vital Signs Temp Pulse Resp BP Pulse Ox 06/23/17 21:34 97.9 F 74 18 110/68 95 Temperature: Afebrile Blood Pressure: Normal Pulse: Regular Respiratory Rate: Normal Appearance: Positive for: Well-Appearing, Non-Toxic, Comfortable Pain Distress: None Mental Status: Positive for: Alert and Oriented X 3 - Systems Exam Head: Present: Normocephalic, Other (Some redness to right temporal head) Pupils: Present: PERRL Extroacular Muscles: Present: EOMI Conjunctiva: Present: Normal Mouth: Present: Moist Mucous Membranes Neck: Present: Normal Range of Motion. No: Meningeal Signs, MIDLINE TENDERNESS , Paraspinal Tenderness Respiratory/Chest: Present: Clear to Auscultation, Good Air Exchange. No: Respiratory Distress, Accessory Muscle Use Cardiovascular: Present: Regular Rate and Rhythm, Normal S1, S2. No: Murmurs Abdomen: Present: Normal Bowel Sounds. No: Tenderness, Distention, Peritoneal Signs Back: Present: Paraspinal Tenderness (lower paraspinal discomfort), Pain with Leg Raise (Slight discomfort with left straight leg raise). No: CVA Tenderness Upper Extremity: Present: Normal Inspection, Normal ROM. No: Cyanosis, Edema Lower Extremity: Present: Normal Inspection, NORMAL PULSES, Normal ROM (Full ROM at bilateral hips), Neurovascularly Intact, Capillary Refill < 2 s. No: Edema, CALF TENDERNESS, Cyanosis, Tenderness, Swelling, Erythema, Deformity Neurological: Present: GCS=15, CN II-XII Intact, Speech Normal Skin: Present: Warm, Dry, Normal Color. No: Rashes Psychiatric: Present: Alert, Oriented x 3, Normal Insight, Normal Concentration Medical Decision Making ED Course and Treatment: 06/23/17 21:30 Impression: 81 year old male sent from retirement s/p fall. Pt hit his head and complaining of lower back discomfort. Differential Diagnosis included but are not limited to: chronic lower back pain vs. muscle strain Plan: -- CT Head w/o contrast -- CT Lumbar Spine w/o contrast -- XR Hip/Pelvis -- Reassess and disposition Prior Visits: Notes and results from previous visits were reviewed. On 05/23/2017, pt was seen in the Emergency department s/p fall and buttock pain. Pt was admitted to the hospital for further evaluation. Progress Notes: 06/24/17 00:07 Reviewed radiology, XR Hip/ Pelvis negative for acute processes. CT Head shows: No CT evidence of acute intracranial abnormality. Details as above. CT Lumbar Spine shows: Endplate erosions noted at L2/3 and L3/4 may reflect discogenic change or discitis/osteomyelitis in the correct clinical setting. In addition to prominent disc bulging and bony spurring anteriorly there is a suggestion of paravertebral stranding, and clinical correlation recommended to exclude the infectious process. 06/24/17 01:[address] Jarvis, covering for Dr. Alfaro.Family is concerned given pts.acute on chronic back pain and difficulty sitting or standing.Pt. will be placed on observation for further management.Dr. Jarvis agrees. - Lab Interpretations Lab Results: 06/24/17 00:51 06/24/17 00:51 Lab Results 06/24/17 00:51: WBC 7.4 D, RBC 4.00, Hgb 11.9 L, Hct 35.2 L, MCV 88.0, MCH 29.8 , MCHC 33.8, RDW 14.0, Plt Count 286, MPV 9.2 06/24/17 00:51: Sodium 137, Potassium 4.7, Chloride 103, Carbon Dioxide 23, Anion Gap 16, BUN 54 H, Creatinine 1.6 H, Est GFR ( Amer) 50, Est GFR ( Non-Af Amer) 42, Random Glucose 119 H, Calcium 9.7, Total Bilirubin 0.8, AST 41 , ALT 38, Alkaline Phosphatase 130, Lactate Dehydrogenase 371, Total Creatine Kinase 57, Troponin I 0.02, Total Protein 7.0, Albumin 3.2, Globulin 3.8, Albumin/Globulin Ratio 0.8 L I have reviewed the lab results: Yes - RAD Interpretation Narrative RAD Interpretations (Text): CT Head shows: Brain: Atrophy. Bilateral white matter hypoattenuation most consistent with chronic ischemic small vessel changes. Vascular calcification. No hemorrhage. No edema. Ventricles: No hydrocephalus. Bones: Skull is intact. Sinuses: No acute sinusitis. Mastoid air cells: Minimal left mastoid air cell opacification. IMPRESSION: No CT evidence of acute intracranial abnormality. Details as above. CT Lumbar Spine shows: Vertebrae: Endplate erosions noted at L2/3 and L3/4 may reflect discogenic change or discitis/osteomyelitis in the correct clinical setting. In addition to prominent disc bulging and bony spurring anteriorly there is a suggestion of paravertebral stranding, and clinical correlation recommended to exclude the infectious process. No acute fracture. Discs/spinal canal/neural foramina: Severe multilevel degenerative disc disease and facet joint arthropathy Soft tissues: Unremarkable. IMPRESSION: Endplate erosions noted at L2/3 and L3/4 may reflect discogenic change or discitis/osteomyelitis in the correct clinical setting. In addition to prominent disc bulging and bony spurring anteriorly there is a suggestion of paravertebral stranding, and clinical correlation recommended to exclude the infectious process. Radiology Orders: 06/23/17 21:36 HEAD W/O CONTRAST [CT] Stat 06/23/17 21:37 LUMBAR SPINE W/O CONTRAST [CT] Stat 06/23/17 21:38 HIP MIN 2V W/ PELVIS JOSE G [RAD] Stat Machine [employer] Cell[employer] Helper: ED Physician, Radiologist - Medication Orders Current Medication Orders: Discontinued Medications Tramadol HCl (Ultram) 50 mg PO STAT STA Stop: 06/24/17 00:56 Last Admin: 06/24/17 01:10 Dose: 50 mg - Scribe Statement The provider has reviewed the documentation as recorded by the Jaycee Damon Provider Scribe Attestation: All medical record entries made by the Scribe were at my direction and personally dictated by me. I have reviewed the chart and agree that the record accurately reflects my personal performance of the history, physical exam, medical decision making, and the department course for this patient. I have also personally directed, reviewed, and agree with the discharge instructions and disposition. Disposition/Present on Arrival - Present on Arrival Any Indicators Present on Arrival: No History of DVT/PE: No History of Uncontrolled Diabetes: No Urinary Catheter: Yes History of Decub. Ulcer: No History Surgical Site Infection Following: None - Disposition Have Diagnosis and Disposition been Completed?: Yes Diagnosis: Intractable low back pain Disposition: HOSPITALIZED Disposition Time: 01:47 Patient Plan: Observation Patient Problems: Current Active Problems Problem Status Onset Back pain Acute Fall Acute Condition: STABLE Referrals: Melissa Alfaro MD [Primary Care Provider] - Follow up with primary Forms: [employer] (Thai)
--- NOTE | 2017-06-23 23:48 | CT ---
EXAM: CT Head Without Intravenous Contrast CLINICAL HISTORY: 81 years old, male; Injury or trauma; Fall; Initial encounter; Abrasion; Head, generalized TECHNIQUE: Axial computed tomography images of the head/brain without intravenous contrast. All CT scans at this facility use one or more dose reduction techniques, viz.: automated exposure control; ma/kV adjustment per patient size (including targeted exams where dose is matched to indication; i.e. head); or iterative reconstruction technique. COMPARISON: CT - HEAD W/O CONTRAST 05/23/2017 11:05:28 PM FINDINGS: Brain: Atrophy. Bilateral white matter hypoattenuation most consistent with chronic ischemic small vessel changes. Vascular calcification. No hemorrhage. No edema. Ventricles: No hydrocephalus. Bones: Skull is intact. Sinuses: No acute sinusitis. Mastoid air cells: Minimal left mastoid air cell opacification. IMPRESSION: No CT evidence of acute intracranial abnormality. Details as above.
[2017-06-24 01:05] LABS: HEMATOCRIT 35.2 % (42.0-52.0); MEAN CORPUSCULAR HEMOGLOBIN 29.8 pg (25.0-35.0); MEAN CORPUSCULAR HGB CONC 33.8 g/dl (31.0-37.0); MEAN PLATELET VOLUME 9.2 fl (7.0-11.0); WHITE BLOOD COUNT 7.4 10^3/ul (4.5-11.0)
[2017-06-24 01:33] LABS: ALB/GLOB RATIO 0.8 (1.1-1.8); BILIRUBIN,TOTAL 0.8 mg/dL (0.2-1.3); CALCIUM 9.7 mg/dL (8.4-10.5); POTASSIUM 4.7 mmol/L (3.6-5.0)
[2017-06-24 01:44] LABS: TROPONIN I 0.02 ng/mL
[2017-06-24] MEDS ORDERED: Oxycodone/Acetaminophen 5/325 mg Tab PO PRN (01:57)
[2017-06-24] MEDS: Metoprolol Succinate 50 mg XL Tab PO SCH (10:48)
[2017-06-24] MEDS: Nystatin 100,000 Units/gm Topical Pow(15 gm) TOP SCH (10:48)
--- NOTE | 2017-06-24 15:51 | CT ---
PROCEDURE: CT lumbar spine dated 06/23/2017 HISTORY: Status post fall COMPARISON: Comparison made with CT scan of the abdomen pelvis dated 05/24/[address] scan of the lumbar spine 05/23/2017 which also image lumbar spine. TECHNIQUE: Helical/transaxial computed tomography images were obtained of the lumbar spine without the use of intravenous contrast. Coronal and sagittal reformatted images were created and reviewed. Radiation dose: Total exam DLP = 1117.76 mGy-cm. This CT exam was performed using one or more of the following dose reduction techniques: Automated exposure control, adjustment of the mA and/or kV according to patient size, and/or use of iterative reconstruction technique. . FINDINGS: The current study reveals what appear to represent chronic erosive changes of the L2-L3 and L3-L4 endplates that felt to represent discitis osteomyelitis can have significantly progressed when compared with prior CT scan of the abdomen and pelvis. . Follow-up MRI recommended. . At the L2-L3 level, there is also broad-based disc bulge ridge complex and hypertrophic facets. Changes result mild canal narrowing. The exit foramina appear marginal to slightly narrowed bilaterally. At the L2-L3 level, there is also disc bulge ridge complex that flattens the ventral surface of the thecal sac. Facets are hypertrophic. Central canal is slightly narrowed. Exit foramina appear narrowed. At the L4-L5 level, there is disc space narrowing more so along the posterior disc margin with broad-based osteophytic ridge complex that also flattens the ventral surface of the thecal sac. Facets are hypertrophic and flavum buckled. There is significant bilateral lateral recess and central canal stenosis. Exit foramina are stenotic bilaterally. At the L5-S1 level, there is disc space narrowing with vacuum disc phenomena and small broad-based disc ridge complex that minimally flattens the ventral surface of the thecal sac. Facets are hypertrophic. Central canal appears adequate. Exit foramina appear stenotic bilaterally. At the L1-L2 level, there is disc space narrowing more so along the posterior disc margin with what appears represent coughlin either calcification along the posterior annulus -bridging osteophyte formation versus calcification of the posterior longitudinal ligament. Changes result in mild irregular compressive effects on the ventral surface of the thecal sac more so on the left side. Central canal is slightly narrowed. Facets are also hypertrophic on. Note made of atrophic appearance of the right kidney with what nonobstructing calculus lower pole. Please refer to prior CT scan abdomen pelvis for additional details. 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 with written down and read back verification.
[2017-06-24 16:11] LABS: URINE BILIRUBIN NEGATIVE (NEGATIVE); URINE BLOOD LARGE (NEGATIVE); URINE GLUCOSE (UA) NEGATIVE (NEGATIVE); URINE KETONE NEGATIVE (NEGATIVE); URINE LEUKOCYTE ESTERASE MODERATE Leu/uL (NEGATIVE); URINE PROTEIN TRACE mg/dL (<30 mg/dL)
[2017-06-24 16:17] LABS: URINE APPEARANCE TURBID (CLEAR); URINE COLOR LIGHT YELLOW (YELLOW)
[2017-06-24 16:53] LABS: URINE BACTERIA MOD (NEG); URINE WBC TNTC /hpf (0-6)
--- NOTE | 2017-06-24 18:12 | RAD ---
PROCEDURE: Radiographs of the pelvis and bilateral hips HISTORY: fall COMPARISON: None. FINDINGS: BONES: Pelvis: Unremarkable. Right hip:Unremarkable. Left hip:Unremarkable. JOINTS: Degenerative changes both hip joints right greater than left SI joints are intact and patent. SOFT TISSUES: The calcifications are seen overlying the pelvis which could be calcified buttock granulomata OTHER FINDINGS: . Degenerative spondylosis of the lumbosacral spine. IMPRESSION: No acute fracture seen. 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 If symptoms persist or occult fracture suspected clinically recommend followup CT scan or MRI.
--- NOTE | 2017-06-25 00:45 | CP.PCM.HP ---
History of Present Illness - History of Present Illness History of Present Illness: Patient is a 81 year old male admitted after he fell from wheel chair at [facility]. He was getting PT there and was on IV meropenem for UTI. completed 3 weeks . he is complaining of back pain. CT spine showed degenrative changes. Revised review of scans reported today evening as discitis osteomyelitis. He does not have any fever. pain controlled with current meds. Present on Admission - Present on Admission Any Indicators Present on Admission: No Review of Systems - Constitutional Constitutional: As Per HPI, Malaise, Weakness - EENT Eyes: absent: As Per HPI, Blind Spots, Blurred Vision, Change in Vision, Decreased Night Vision, Diplopia, Discharge, Dry Eye, Exophthalmos, Floaters, Irritation, Itchy Eyes, Loss of Peripheral Vision, Pain, Photophobia, Requires Corrective Lenses, Sees Flashes, Spots in Vision, Tunnel Vision, Other Visual Disturbances, Loss of Vision, Other Ears: absent: As Per HPI, Decreased Hearing, Ear Discharge, Ear Pain, Tinnitus, Abnormal Hearing, Disequilibrium, Dizziness, Other - Cardiovascular Cardiovascular: absent: As Per HPI, Acrocyanosis, Chest Pain, Chest Pain at Rest , Chest Pain with Activity, Claudication, Diaphoresis, Dyspnea, Dyspnea on Exertion, Edema, Irregular Heart Rhythm, Pain Radiating to Arm/Neck/Jaw, Leg Edema, Leg Ulcers, Lightheadedness, Orthopnea, Palpitations, Paroxysmal Nocturnal Dyspnea, Pedal Edema, Radiating Pain, Rapid Heart Rate, Slow Heart Rate, Syncope, Other - Respiratory Respiratory: absent: As Per HPI, Cough, Dyspnea, Hemoptysis, Dyspnea on Exertion , Wheezing, Snoring, Stridor, Pain on Inspiration, Chest Congestion, Excessive Mucous Production, Change in Mucous Color, Pain with Coughing, Other - Gastrointestinal Gastrointestinal: absent: As Per HPI, Abdominal Pain, Belching, Bloating, Change in Bowel Habits, Change in Stool Character, Coffee Ground Emesis, Constipation, Cramping, Diarrhea, Dyspepsia, Dysphagia, Early Satiety, Excessive Flatus, Fecal Incontinence, Heartburn, Hematemesis, Hematochezia, Loose Stools, Melena, Nausea, Odynophagia, Temesmus, Vomiting, Other - Genitourinary Genitourinary: absent: As Per HPI, Change in Urinary Stream, Difficulty Urinating, Dysuria, Flank Pain, Hematuria, Pyuria, Nocturia, Urinary Incontinence, Urinary Frequency, Urinary Hesitance, Urinary Urgency, Voiding Freq/Small Amts, Freq UTI, Hx Renal/Bladder Calculi, Hx /Renal Surgery, Bladder Distension, Other - Musculoskeletal Musculoskeletal: As Per HPI - Integumentary Integumentary: absent: As Per HPI, Acne, Alopecia, Bleeding Lesions, Change in Hair, Change in Nails, Change in Pigmentation, Changing Lesions, Dry Skin, Erythema, Furuncle, Hirsutism, Lesions, New Lesions, Non-Healing Lesions, Photosensitivity, Pruritus, Rash, Skin Pain, Skin Ulcer, Sores, Striae, Swelling , Unusual Bruising, Wounds, Jaundice, Other - Neurological Neurological: absent: As Per HPI, Abnormal Gait, Abnormal Hearing, Abnormal Movements, Abnormal Speech, Behavioral Changes, Burning Sensations, Confusion, Convulsions, Disequilibrium, Dizziness, Numbness, Focal Weakness, Frequent Falls , Headaches, Lack of Coordination, Loss of Vision, Memory Loss, Paresthesias, Radicular Pain, Restless Legs, Sensory Deficit, Syncope, Tingling, Tremor, Vertigo, Weakness, Other Visual Disturbances, Other - Endocrine Endocrine: absent: As Per HPI, Change in Body Appearance, Change in Libido, Cold Intolorance, Deepening of Voice, Excessive Sweating, Fatigue, Flushing, Heat Intolorance, Increase in Ring/Shoe/Hat Size, Palpitations, Polydipsia, Polyphagia, Polyuria, Other - Hematologic/Lymphatic Hematologic: As Per HPI Past Patient History - Infectious Disease Hx of Infectious Diseases: None - Tetanus Immunizations Tetanus Immunization: Unknown - Past Medical History & Family History Past Medical History?: Yes Past Family History: Reviewed and not pertinent - Past Social History Smoking Status: Former Smoker - CARDIAC Hx Cardiac Disorders: Yes (cad) Hx Congestive Heart Failure: Yes Hx Hypercholesterolemia: Yes Hx Peripheral Edema: Yes - PULMONARY Hx Respiratory Disorders: No - NEUROLOGICAL Hx Neurological Disorder: No - HEENT Hx HEENT Problems: Yes (uses glasses) - RENAL Hx Chronic Kidney Disease: Yes Hx Kidney Stones: Yes (lithotripsy [facility]) - ENDOCRINE/METABOLIC Hx Diabetes Mellitus Type 2: Yes - HEMATOLOGICAL/ONCOLOGICAL Hx Blood Disorders: No - INTEGUMENTARY Hx Dermatological Problems: No - MUSCULOSKELETAL/RHEUMATOLOGICAL Hx Back Pain: Yes Hx Falls: Yes - GASTROINTESTINAL Hx Gastrointestinal Disorders: No - GENITOURINARY/GYNECOLOGICAL Hx Genitourinary Disorders: Yes (frequency, bladder stone) Hx Hematuria: Yes (3 or 4 yrs ago) Hx Prostate Problems: Yes (prostate obstruction,cysotscopy) Hx Urinary Tract Infection: Yes - PSYCHIATRIC Hx Psychophysiologic Disorder: No Hx Depression: No Hx Emotional Abuse: No Hx Physical Abuse: No Hx Substance Use: No - SURGICAL HISTORY Hx Surgeries: Yes (TURP GREEN LIGHT LASER) Hx Cardiac Catheterization: Yes Hx Coronary Stent: Yes - ANESTHESIA Hx Anesthesia: Yes Hx Anesthesia Reactions: No Hx Malignant Hyperthermia: No Meds Allergies/Adverse Reactions: Allergies Allergy/AdvReac Type Severity Reaction Status Date / Time No Known Allergies Allergy Verified 04/10/17 12:22 Physical Exam - Constitutional Appears: Non-toxic, Chronically Ill - Head Exam Head Exam: ATRAUMATIC, NORMAL INSPECTION, NORMOCEPHALIC - Eye Exam Eye Exam: Normal appearance Pupil Exam: NORMAL ACCOMODATION - ENT Exam ENT Exam: Mucous Membranes Moist, Normal Exam - Neck Exam Neck exam: Positive for: Normal Inspection - Respiratory Exam Respiratory Exam: Clear to Auscultation Bilateral, NORMAL BREATHING PATTERN - Cardiovascular Exam Cardiovascular Exam: REGULAR RHYTHM, +S1, +S2 - GI/Abdominal Exam GI & Abdominal Exam: Normal Bowel Sounds, Soft - Extremities Exam Extremities exam: Positive for: normal inspection - Neurological Exam Neurological exam: Alert, CN II-XII Intact, Normal Gait, Oriented x3 - Skin Skin Exam: Normal Color, Warm Results - Vital Signs Recent Vital Signs: Last Vital Signs Temp 97.7 F 06/24/17 08:27 Pulse 91 H 06/24/17 08:27 Resp 20 06/24/17 08:27 BP 130/78 06/24/17 10:48 Pulse Ox 96 06/24/17 08:27 - Labs Result Diagrams: 06/24/17 00:51 06/24/17 00:51 Labs: Laboratory Results - last 24 hr 06/24/17 06/24/17 06/24/17 07:17 11:28 15:50 POC Glucose (mg/dL) 127 H 153 H Urine Color Light yellow Urine Appearance Turbid Urine pH 6.0 Ur Specific Shiner 1.015 Urine Protein Trace H Urine Glucose (UA) Negative Urine Ketones Negative Urine Blood Large H Urine Nitrate Negative Urine Bilirubin Negative Urine Urobilinogen 1.0 H Ur Leukocyte Esterase Moderate H Urine RBC 10 - 15 Urine WBC Tntc Ur Epithelial Cells 3 - 4 Urine Bacteria Mod Urine Other Uyeast 06/24/17 16:45 POC Glucose (mg/dL) 112 H Urine Color Urine Appearance Urine pH Ur Specific Shiner Urine Protein Urine Glucose (UA) Urine Ketones Urine Blood Urine Nitrate Urine Bilirubin Urine Urobilinogen Ur Leukocyte Esterase Urine RBC Urine WBC Ur Epithelial Cells Urine Bacteria Urine Other Assessment & Plan - Assessment and Plan (Free Text) Assessment: 1. S/P mechanical fall 2. Back pain 3. 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 Anemia 5. CKD sdtage III 6. A-Fib Plan : admit hospital. completed recently [address] spine discitis osteomyelitis. ID consult Dr. Olivo requested. pain- percocet 10 mg Q 6 hr prn. Eliquis 5 mg BID for A-FIB. Anemia - chronic , likely related to CKD III. Bed side PT. - Date & Time Date: 06/24/17 Time: 11:00
[2017-06-25] MEDS: Metoprolol Succinate 50 mg XL Tab PO SCH (08:06)
[2017-06-25 08:59] LABS: HEMATOCRIT 35.3 % (42.0-52.0); MEAN CELL VOLUME 88.5 fl (80.0-105.0); MEAN CORPUSCULAR HEMOGLOBIN 29.8 pg (25.0-35.0); MEAN CORPUSCULAR HGB CONC 33.7 g/dl (31.0-37.0); MEAN PLATELET VOLUME 9.1 fl (7.0-11.0); WHITE BLOOD COUNT 6.4 10^3/ul (4.5-11.0)
[2017-06-25] MEDS ORDERED: Meropenem 1g/NS 100mL IVPB 1 GM/100 ML PIGGYBACK IVPB SCH ×2 (09:45→10:00)
--- NOTE | 2017-06-25 16:21 | CON ---
DATE: HISTORY OF PRESENT ILLNESS: This is an 81-year-old white male with past medical history of chronic low back pain, atrial fibrillation, diabetes, coronary artery disease, hypertension. Daughter at bedside. The patient is a resident of [facility] and came here because he slipped from his wheelchair and found on the floor and hit his head. CAT scan of the head was negative. Did not lose consciousness. Denies any neck pain, back pain. MEDICATIONS: Glyburide, metformin, aspirin, metoprolol, lisinopril and hydrochlorothiazide. PHYSICAL EXAMINATION: VITAL SIGNS: Blood pressure 110/68. HEENT: Normocephalic, atraumatic. NEUROLOGIC: Cranial nerves II through XII were tested. Pupils reactive. EOM intact. Visual cadet full. No facial asymmetry. Tongue midline. Spontaneous movement of all the extremities noted. Deep tendon reflex is 1+. Both plantars are downgoing. Sensory appears intact. Cerebellar and gait deferred. LABORATORY DATA: WBC 7.4, hemoglobin 11.9, hematocrit 35.2, and platelets 286. Sodium 137, potassium 4.7, chloride 103, CO2 of 23, glucose 119, BUN 54, and creatinine 1.6. The patient's CT of the lumbosacral spine was done and shows discogenic diskitis and osteomyelitis at L3-L4. CAT scan of the head was negative. IMPRESSION: Status post fall from wheelchair and there is no loss of consciousness. CAT scan of the head was negative. PLAN: Continue present management. We will follow up. Farrukh Truong MD
[2017-06-25] MEDS: Docusate-Senna 50 mg-8.6 mg Tab PO SCH (17:37)
[2017-06-25] MEDS: Nystatin 100,000 Units/gm Topical Pow(15 gm) TOP SCH (17:42)
[2017-06-25] MEDS: Oxycodone/Acetaminophen 10/325 mg Tab PO PRN (18:03)
[2017-06-25] MEDS ORDERED: Gadodiamide 287 MG/ML VIAL (15ML) IV ONE (18:44)
--- NOTE | 2017-06-25 23:59 | CP.PCM.PN ---
Subjective - Date & Time of Evaluation Date of Evaluation: 06/25/17 Time of Evaluation: 09:00 - Subjective Subjective: Comfortable in bed. Back pain on movement. Moving both legs . able to ambulate with support. CT spine showed discitis osteomyleitis L2-3. No fever. recently completed meropenem for 3 weeks. Objective - Vital Signs/Intake and Output Vital Signs (last 24 hours): Temp Pulse Resp BP Pulse Ox 98.1 F 60 20 113/61 96 06/25/17 16:00 06/25/17 16:00 06/25/17 16:00 06/25/17 16:00 06/25/17 16:00 Intake and Output: 06/25/17 06/26/17 18:59 06:59 Intake Total 380 Output Total 1300 Balance -920 - Medications Medications: Current Medications Apixaban (Eliquis) 5 mg PO Q12 [facility] PRN Reason: Protocol Last Admin: 06/25/17 09:43 Dose: 5 mg Aspirin (Ecotrin) 81 mg PO DAILY [facility] Last Admin: 06/25/17 09:43 Dose: 81 mg Hydrochlorothiazide (Hydrodiuril) 25 mg PO DAILY [facility] Last Admin: 06/25/17 09:42 Dose: 25 mg Metformin HCl (Glucophage) 500 mg PO BIDWM [facility] Last Admin: 06/25/17 17:11 Dose: 500 mg Metoprolol Succinate (Toprol Xl) 50 mg PO BRK [facility] Last Admin: 06/25/17 08:06 Dose: 50 mg Nystatin (Nystop Topical Powder) 1 gm TOP DAILY [facility] Last Admin: 06/25/17 17:42 Dose: 1 applic Oxycodone/Acetaminophen (Percocet 10/325 Mg Tab) 1 tab PO Q6H PRN PRN Reason: Pain, moderate (4-7) Last Admin: 06/25/17 18:03 Dose: 1 tab Senna/Docusate Sodium (Senokot S 50 Mg-8.6 Mg) 1 tab PO BID [facility] Last Admin: 06/25/17 17:37 Dose: 1 tab - Constitutional Appears: No Acute Distress - Head Exam Head Exam: ATRAUMATIC, NORMAL INSPECTION, NORMOCEPHALIC - Eye Exam Eye Exam: absent: Conjunctival injection, EOMI, Normal appearance, Nystagmus, Periorbital swelling, Periorbital tenderness, PERRL, Scleral icterus - ENT Exam ENT Exam: Mucous Membranes Moist, Normal Exam - Neck Exam Neck Exam: Normal Inspection - Respiratory Exam Respiratory Exam: Clear to Ausculation Bilateral, NORMAL BREATHING PATTERN - Cardiovascular Exam Cardiovascular Exam: REGULAR RHYTHM, +S1, +S2 - GI/Abdominal Exam GI & Abdominal Exam: Soft, Normal Bowel Sounds - Extremities Exam Extremities Exam: Normal Capillary Refill, Normal Inspection - Back Exam Back Exam: NORMAL INSPECTION - Neurological Exam Neurological Exam: Alert, Oriented x3 - Skin Skin Exam: Normal Color, Warm Assessment and Plan - Assessment and Plan (Free Text) Assessment: 1. S/P mechanical fall 2. Back pain 3. 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 Anemia 5. CKD sdtage III 6. A-Fib Plan : MRI spine done today. Findings same as CT scan - osteomyelitis L2-5 spine. No paraspinal abscess. Discussed with Dr. Webb for FNA of spinal lesions for culture. discussed with Dr. Callejas. FNA scheduled for tomorrow. Blood counts stable. renal : stable. on eliquis 5 mg BID. will discuss with Dr. Webb for high risk of bleeding. empiric treatment of osteomyelitis will be a better option for him. -
--- NOTE | 2017-06-26 05:24 | CON ---
DATE: 06/25/2017 The patient seen earlier in 560. HISTORY OF PRESENT ILLNESS: This is an 81-year-old male with diabetes mellitus, hypertension, hyperlipidemia and history of right second finger infection with sensitive Staph aureus, history of hydronephrosis and nephrolithiasis, prostate disease and renal failure. The patient also had cardiac catheterization and coronary artery disease and cardiac catheterization with stent placement and history of cystoscopy with patient also had TURP, who was admitted. The patient had sepsis in April with Pseudomonas bacteremia and prostatitis, was given antibiotics for weeks and the patient also had Pseudomonas bacteremia and Pseudomonas urinary tract infection in the urine culture, who was admitted on this admission with the diagnosis of intractable back pain, was seen in the emergency room by Dr. Ring and the patient admitted now with a chief complaint of intractable back pain and infectious disease consultation requested. PAST MEDICAL HISTORY: Significant for dementia, hypertension, hyperlipidemia, Pseudomonas bacteremia, Pseudomonas urinary tract infection, Pseudomonas prostatitis, hydronephrosis and nephrolithiasis with history of coronary artery disease, prostate disease, diabetes, hypertension, hyperlipidemia and history of sensitive Staph aureus right second finger infection. ALLERGIES: THE PATIENT HAS NO KNOWN ALLERGIES. MEDICATIONS: Reviewed, which include Tramadol. REVIEW OF SYSTEMS: Review of the patient is no fevers, no chills and no abdominal pain, diarrhea or constipation. No dysuria or frequency. PHYSICAL EXAMINATION: VITAL SIGNS: The patient is in bed with temperature of 98, blood pressure is 113/60, respiratory rate of 20 and heart rate of 68. HEENT: Unremarkable. NECK: Supple. HEART: Normal S1 and S2. LUNGS: Decreased breath sounds. ABDOMEN: Soft and nontender. No rebound. No guarding. No masses and there is no point tenderness in the back. LABORATORY DATA: Reveals the patient's white count of 7.4, hemoglobin 11, platelets of 286 and sed rate of 86. Chemistries reveals the patient has a BUN of 54, creatinine of 1.6 with a C-reactive protein greater than 15, glucose of 119. Urinalysis is too numerous cells WBCs, moderate bacteria and yeast. Microbiology pending. The patient did have Pseudomonas in April in the blood, in the urine and skin and sensitive from the abscess in the second finger from 03/2017, all other blood cultures have been negative except for one in 02/2013 the patient had a gram-positive cocci, but no further identification. Dr. Truong's notes is reviewed and Dr. Jarvis's notes is reviewed, history and physical examination. ASSESSMENT AND PLAN: This is an 81-year-old male with diabetes, hypertension, hyperlipidemia, Pseudomonas bacteremia, Pseudomonas urinary tract infection, prostatitis, hydronephrosis and nephrolithiasis, history of sensitive Staph aureus now presenting with L2-L3 diskitis and vertebral osteomyelitis. The patient is scheduled for a CAT scan directed aspiration of the disk. We will hold off any antibiotics at this time, pending disk aspiration and culture after Dr. Jonathan Webb did see the patient and we will also ordered a blood cultures x2 and CAT scan aspiration and biopsy of the disk and bone when the antibiotic once that is done, I will start empiric antibiotics. The patient has acute kidney injury because the creatinine at last admission was 1.0 now 1.6. We will follow with you. Marin Callejas MD
[2017-06-26 07:09] LABS: INR 1.3 (0.93-1.08); PARTIAL THROMBOPLASTIN TIME 29.9 Seconds (23.7-30.8)
[2017-06-26] MEDS: Nystatin 100,000 Units/gm Topical Pow(15 gm) TOP SCH (10:13)
[2017-06-26] MEDS: Docusate-Senna 50 mg-8.6 mg Tab PO SCH ×2 (10:14→17:32)
[2017-06-26] MEDS: Metoprolol Succinate 50 mg XL Tab PO SCH (10:14)
--- NOTE | 2017-06-26 12:31 | MRI ---
PROCEDURE: MR LUMBAR SPINE WITH AND WITHOUT CONTRAST HISTORY: L2-3 and L3-4 discitis COMPARISON: CT scan of the lumbar spine from 06/23/2017 TECHNIQUE: Multiecho multiplanar sequences were performed through the lumbar spine with and without the use of intravenous contrast. FINDINGS: There is normal alignment of the lumbar vertebral bodies. Lumbar lordosis is maintained. 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 There is abnormal T1 hypointense and T2/stir hyperintense signal with corresponding heterogeneous enhancement in the L2, L3 and L4 vertebral bodies. There is abnormal T1 hypointense and T2/stir hyperintense signal in the L2-3, L3-4 and L4-5 discs. There is also abnormal anterior and lateral perivertebral soft tissue from L2-L4 with locular T2 hyperintense areas in the left anterior perivertebral region, worse on the left. Also noted is abnormal ventral epidural soft tissue at L2, L3 and L4, most conspicuous in the left ventral epidural space at L4 which results in mild mass effect on the thecal sac and mild spinal canal stenosis. The left ventral epidural component measures 10 x 7 mm. Maximum thickness of the ventral epidural soft tissue at L3 is a 10 mm. There is also abnormal enhancing dorsal epidural soft tissue at L3 and L4 measuring 4 mm maximum thickness. Abnormal enhancing soft tissue also extends in bilateral neural foraminal L2-3 to L4-5. There is multilevel degenerative disc disease in the lumbar spine with multilevel disc protrusion and indentation of the ventral thecal sac, worse at L2-3 with mild spinal canal stenosis. The conus medullaris terminates at a normal level. There is diffuse thickening of the nerve roots of cauda equina and mild enhancement on post-contrast images. OTHER FINDINGS: There is mild diffuse atrophy of the paraspinous muscles. There is a large simple cyst in the left kidney. IMPRESSION: 1. Findings are consistent with discitis and osteomyelitis at L2-3, L3-4 and L4-5 with abnormal perivertebral and prevertebral enhancing soft tissue and phlegmonous changes also noted is abnormal enhancing ventral and dorsal epidural soft tissue at L2, L3 and L4 measuring 10 mm in maximum dimension at L3 with resultant indentation of the ventral thecal sac and mild spinal canal stenosis. The largest left ventral epidural component at L4 measures 10 x 7 mm. Abnormal enhancing soft tissue also extends into bilateral neural foramina from L2-3 to L4-5, worse at L2-3 and L3-4. No drainable abscess or fluid collection. 2. 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 A preliminary report was provided by [employer] services.
--- NOTE | 2017-06-26 18:57 | PN ---
DATE: 06/26/2017 SUBJECTIVE: The patient seen in bed, in no acute distress. No fevers or chills. PHYSICAL EXAMINATION VITAL SIGNS: Temperature 98, blood pressure is 150/70, respiratory rate of 16. HEENT: Unremarkable. NECK: Supple. LUNGS: Decreased breath sounds. HEART: Normal S1 and S2. ABDOMEN: Soft and nontender. LABORATORY EXAMINATION: Reveals a white count of 6.9. Chemistries reveal creatinine of 1.6. Urinalysis reveals too numerous to count. Urine culture is yeast. Blood cultures are pending. The patient is currently off of antibiotics. The patient had an MRI of the spine consistent with L2-L3 diskitis and osteomyelitis in L3-L4 and L4-L5. ASSESSMENT AND PLAN: This is an 81-year-old with dementia and hypertension and hyperlipidemia and pseudomonas bacteremia, pseudomonas urinary tract infection, pseudomonas prostatitis and hydronephrosis and nephrolithiasis, who is on meropenem as outpatient, now presenting with L2-L3 diskitis and vertebral osteomyelitis, waiting for Dr. Jonathan Webb's CAT scan-directed aspiration and biopsy, would start empiric vancomycin and meropenem, may need antifungal therapy based on tissue Gram stain and cultures and blood cultures. Case discussed with Dr. Jonathan Webb this morning. May also benefit from neurosurgical evaluation. Dr. Truong's neurological consultation is reviewed. We will follow closely with you. Marin Callejas MD
[2017-06-26] MEDS: Oxycodone/Acetaminophen 10/325 mg Tab PO PRN (19:57)
--- NOTE | 2017-06-26 22:49 | CP.PCM.PN ---
Addendum entered and electronically signed by Héctor Nelson DO 06/27/17 07:01: Correction to plan: 2) Lyrica 75mg BID (not 5mg) Original Note: <Héctor Nelson - Last Filed: 06/26/17 22:45> Subjective - Date & Time of Evaluation Date of Evaluation: 06/26/17 Time of Evaluation: 11:40 - Subjective Subjective: Neurology Progress Note for Dr. Truong Service Patient seen and examined at bedside. No acute events reported overnight. Patient resting comfortably in bed, denies any acute complaints other than chronic back pain. Denies any acute complaints, including chest pain, shortness of breath, fevers/chills, nausea/emesis, diarrhea/constipation, dysuria/hematuria, or focal weakness/paresthesias. Admits to chronic back pain , but with further prompting, notes that he does experience radiation of his back pain down his left buttock and leg. As per nursing, pending a vertebral disc aspiration by IR/Vascular, as per PMD. Objective - Vital Signs/Intake and Output Vital Signs (last 24 hours): Temp Pulse Resp BP Pulse Ox 97.9 F 78 20 99/67 L 96 06/26/17 16:00 06/26/17 16:00 06/26/17 16:00 06/26/17 16:00 06/26/17 16:00 Intake and Output: 06/26/17 06/27/17 18:59 06:59 Intake Total 780 480 Output Total 400 400 Balance 380 80 - Medications Medications: Current Medications Apixaban (Eliquis) 5 mg PO Q12 [facility] PRN Reason: Protocol Last Admin: 06/25/17 09:43 Dose: 5 mg Aspirin (Ecotrin) 81 mg PO DAILY [facility] Last Admin: 06/26/17 10:14 Dose: 81 mg Hydrochlorothiazide (Hydrodiuril) 25 mg PO DAILY [facility] Last Admin: 06/26/17 10:14 Dose: 25 mg Metformin HCl (Glucophage) 500 mg PO BIDWM [facility] Last Admin: 06/26/17 17:32 Dose: 500 mg Metoprolol Succinate (Toprol Xl) 50 mg PO BRK [facility] Last Admin: 06/26/17 10:14 Dose: 50 mg Nystatin (Nystop Topical Powder) 1 gm TOP DAILY [facility] Last Admin: 06/26/17 10:13 Dose: 1 applic Oxycodone/Acetaminophen (Percocet 10/325 Mg Tab) 1 tab PO Q6H PRN PRN Reason: Pain, moderate (4-7) Last Admin: 06/26/17 19:57 Dose: 1 tab Pregabalin (Lyrica) 75 mg PO BID [facility] Last Admin: 06/26/17 17:32 Dose: 75 mg Senna/Docusate Sodium (Senokot S 50 Mg-8.6 Mg) 1 tab PO BID [facility] Last Admin: 06/26/17 17:32 Dose: 1 tab - Labs Labs: PT 14.0 Seconds (9.9-11.8) H 06/26/17 06:40 INR 1.30 (0.93-1.08) H 06/26/17 06:40 APTT 29.9 Seconds (23.7-30.8) 06/26/17 06:40 - Constitutional Appears: Well, Non-toxic, No Acute Distress - Head Exam Head Exam: ATRAUMATIC, NORMAL INSPECTION, NORMOCEPHALIC - Eye Exam Eye Exam: EOMI, Normal appearance, PERRL. absent: Conjunctival injection, Scleral icterus Pupil Exam: NORMAL ACCOMODATION, PERRL. absent: Fixed, Irregular, Unequal - ENT Exam ENT Exam: Mucous Membranes Moist - Neck Exam Neck Exam: Full ROM, Normal Inspection - Respiratory Exam Respiratory Exam: Clear to Ausculation Bilateral, NORMAL BREATHING PATTERN. absent: Accessory Muscle Use, Chest Wall Tenderness, Decreased Breath Sounds, Rales, Rhonchi, Wheezes, Respiratory Distress - Cardiovascular Exam Cardiovascular Exam: Irregular Rhythm, RRR, +S1, +S2. absent: Bradycardia, Tachycardia, REGULAR RHYTHM, JVD, +S4 - GI/Abdominal Exam GI & Abdominal Exam: Soft, Normal Bowel Sounds. absent: Distended, Firm, Guarding, Rigid, Tenderness, Diminished Bowel Sounds, Hyperactive Bowel Sounds, Hypoactive Bowel Sounds - Extremities Exam Extremities Exam: Normal Capillary Refill, Normal Inspection. absent: Calf Tenderness, Joint Swelling, Pedal Edema, Tenderness - Back Exam Back Exam: absent: CVA tenderness (L), CVA tenderness (R) Additional comments: pain elicited with flexing left knee and then flexing hip, tenderness mainly when flexion reaches level of S3 - Neurological Exam Neurological Exam: Alert, Awake, Oriented x3 (self, location, year) Neuro motor strength exam: Left Upper Extremity: 5, Right Upper Extremity: 5, Left Lower Extremity: 4, Right Lower Extremity: 4 Additional comments: Sensory grossly intact and equal in bilateral LE and UE - Psychiatric Exam Psychiatric exam: Normal Affect, Normal Mood - Skin Skin Exam: Dry, Intact, Normal Color, Warm Assessment and Plan - Assessment and Plan (Free Text) Assessment: This is a 81 yo M with PMH of HTN, AFib, DM, CAD, and chronic back pain who presented to [facility] [place] for fall from wheelchair in which struck his head, but reports no loss of consciousness. He was later found on CT of lumbar spine to have discitis osteomyelitis, which have worsened since pt's last admission to [facility] [place]. 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 Plan: 1) Given MRI findings of cauda-equina nerve roots thickening, would consult Neurosurgery 2) Lyrica 5mg PO BID for neuropathy Patient seen, examined, and discussed with attending, Dr. Loco Truong. <Beltran Truong - Last Filed: 06/27/17 11:20> Objective - Vital Signs/Intake and Output Vital Signs (last 24 hours): Temp Pulse Resp BP Pulse Ox 97.5 F L 85 17 118/62 97 06/27/17 07:00 06/27/17 11:10 06/27/17 11:10 06/27/17 11:10 06/27/17 11:10 Intake and Output: 06/27/17 06/27/17 06:59 18:59 Intake Total 480 150 Output Total 500 Balance -20 150 - Medications Medications: Current Medications Acetaminophen (Tylenol 325mg Tab) 650 mg PO Q4 PRN PRN Reason: Pain, Mild (1-3) Apixaban (Eliquis) 5 mg PO Q12 [facility] PRN Reason: Protocol Last Admin: 06/25/17 09:43 Dose: 5 mg Aspirin (Ecotrin) 81 mg PO DAILY [facility] Last Admin: 06/26/17 10:14 Dose: 81 mg Hydrochlorothiazide (Hydrodiuril) 25 mg PO DAILY [facility] Last Admin: 06/26/17 10:14 Dose: 25 mg Sodium Chloride (Sodium Chloride 0.45%) 1,000 mls @ 80 mls/hr IV .[id number] [facility] Stop: 06/27/17 18:00 Metformin HCl (Glucophage) 500 mg PO BIDWM [facility] Last Admin: 06/27/17 08:07 Dose: Not Given Metoprolol Succinate (Toprol Xl) 50 mg PO BRK [facility] Last Admin: 06/27/17 09:00 Dose: 50 mg Nystatin (Nystop Topical Powder) 1 gm TOP DAILY [facility] Last Admin: 06/26/17 10:13 Dose: 1 applic Oxycodone/Acetaminophen (Percocet 10/325 Mg Tab) 1 tab PO Q6H PRN PRN Reason: Pain, moderate (4-7) Last Admin: 06/26/17 19:57 Dose: 1 tab Oxycodone/Acetaminophen (Percocet 5/325 Mg Tab) 1 tab PO Q4H PRN PRN Reason: Pain, moderate (4-7) Stop: 06/30/17 11:10 Pregabalin (Lyrica) 75 mg PO BID [facility] Last Admin: 06/26/17 17:32 Dose: 75 mg Senna/Docusate Sodium (Senokot S 50 Mg-8.6 Mg) 1 tab PO BID [facility] Last Admin: 06/26/17 17:32 Dose: 1 tab - Labs Labs: PT 14.0 Seconds (9.9-11.8) H 06/26/17 06:40 INR 1.30 (0.93-1.08) H 06/26/17 06:40 APTT 29.9 Seconds (23.7-30.8) 06/26/17 06:40 Attending/Attestation - Attestation I have personally seen and examined this patient.: Yes I have fully participated in the care of the patient.: Yes I have reviewed all pertinent clinical information, including history, physical exam and plan: Yes
[2017-06-27] MEDS: Metoprolol Succinate 50 mg XL Tab PO SCH (09:00)
[2017-06-27] MEDS ORDERED: Midazolam 2 MG/2 ML VIAL ONE (09:53)
--- NOTE | 2017-06-27 11:09 | PN ---
DATE: 06/26/2017 SUBJECTIVE: The patient has no complaints of any chest pain or shortness of breath. No headaches or dizziness. PHYSICAL EXAMINATION: VITAL SIGNS: Temperature is 97.9, pulse is 78, blood pressure is 99/67, and respirations 20. GENERAL: The patient is lying in bed, flat, comfortable. HEENT: No oral lesion. Anicteric sclerae. Moist mucosa. NECK: No JVD, adenopathy, or thyromegaly. CARDIOVASCULAR: S1 and S2, regular. No murmurs, rubs, or gallops. LUNGS: Clear to auscultation bilaterally. No wheeze, rales, or rhonchi. ABDOMEN: Bowel sounds are positive, soft, nontender and nondistended. EXTREMITIES: No cyanosis, clubbing or edema. LABORATORY DATA: Creatinine is 1.6. MRI of the back done shows diskitis and osteomyelitis at L2-L3 and L3-L4 and L4-L5. There is an enhancing soft tissue and phlegmonous changes noted in the neck area L2, L3, and L4. No abscess or fluid collection is seen. ASSESSMENT: 1. Osteomyelitis of L2, L3, and L4. 2. Dementia, Alzheimer's type. 3. Hypertension. 4. Dyslipidemia. 5. Fall. 6. Chronic kidney disease stage III. 7. Atrial fibrillation, on Eliquis. PLAN: The patient's pain is comfortable. He has yeast in his urine. Blood cultures that are negative. He is going to have CT-guided biopsy tomorrow by Dr. Jonathan Webb. The patient's Apixaban is placed on hold. The patient is on nystatin. He is going to continue on Lyrica. The patient is on aspirin daily. He is being followed by Dr. Truong, Dr. Callejas as well as Dr. Jonathan Webb. Pardeep Jorge MD
[2017-06-27] MEDS ORDERED: Sodium Chloride 0.45% 1,000 ML IV SCH (11:15)
[2017-06-27] MEDS ORDERED: Oxycodone/Acetaminophen 10/325 mg Tab PO PRN (11:22)
[2017-06-27] MEDS ORDERED: DAPTOmycin 500 mg Inj (Cubicin) IV SCH (12:30)
[2017-06-27] MEDS: Meropenem 1g/NS 100mL IVPB 1 GM/100 ML PIGGYBACK IVPB SCH (12:54)
[2017-06-27] MEDS: Oxycodone/Acetaminophen 5/325 mg Tab PO PRN (12:57)
[2017-06-27] MEDS: Docusate-Senna 50 mg-8.6 mg Tab PO SCH ×2 (14:08→18:47)
[2017-06-27] MEDS: Nystatin 100,000 Units/gm Topical Pow(15 gm) TOP SCH (14:11)
--- NOTE | 2017-06-27 14:15 | CP.PCM.PN ---
Subjective - Date & Time of Evaluation Date of Evaluation: 06/27/17 Time of Evaluation: 12:15 - Subjective Subjective: Underwent CT-guided and biopsy of vertebral area. No fevers overnight. Still with back pain. Objective - Vital Signs/Intake and Output Vital Signs (last 24 hours): Temp Pulse Resp BP Pulse Ox 97.9 F 70 20 112/60 96 06/26/17 16:00 06/27/17 09:00 06/26/17 16:00 06/27/17 09:00 06/26/17 16:00 Intake and Output: 06/27/17 06/27/17 06:59 18:59 Intake Total 480 Output Total 500 Balance -20 - Medications Medications: Current Medications Apixaban (Eliquis) [address] [facility] PRN Reason: Protocol Last Admin: 06/25/17 09:43 Dose: 5 mg Aspirin (Ecotrin) [address] [facility] Last Admin: 06/26/17 10:14 Dose: 81 mg Hydrochlorothiazide (Hydrodiuril) [address] [facility] Last Admin: 06/26/17 10:14 Dose: 25 mg Metformin HCl (Glucophage) [address] [facility] Last Admin: 06/27/17 08:07 Dose: Not Given Metoprolol Succinate (Toprol Xl) [address] [facility] Last Admin: 06/27/17 09:00 Dose: 50 mg Nystatin (Nystop Topical Powder) [address] [facility] Last Admin: 06/26/17 10:13 Dose: 1 applic Oxycodone/Acetaminophen (Percocet 10/325 Mg Tab) 1 tab PO Q6H PRN PRN Reason: Pain, moderate (4-7) Last Admin: 06/26/17 19:57 Dose: 1 tab Pregabalin (Lyrica) [address] [facility] Last Admin: 06/26/17 17:32 Dose: 75 mg Senna/Docusate Sodium (Senokot S 50 Mg-8.6 Mg) [address] [facility] Last Admin: 06/26/17 17:32 Dose: 1 tab - Labs Labs: PT 14.0 Seconds (9.9-11.8) H 06/26/17 06:40 INR 1.30 (0.93-1.08) H 06/26/17 06:40 APTT 29.9 Seconds (23.7-30.8) 06/26/17 06:40 - Constitutional Appears: Non-toxic, No Acute Distress - Head Exam Head Exam: NORMAL INSPECTION - Respiratory Exam Respiratory Exam: Decreased Breath Sounds - Cardiovascular Exam Cardiovascular Exam: +S1, +S2 - GI/Abdominal Exam GI & Abdominal Exam: Soft. absent: Tenderness Assessment and Plan - Assessment and Plan (Free Text) Plan: Assessment Vertebral osteomyelitis and discitis (L2-3, L3-4, L4-5) S/P CT-guided aspiration and biopsy today history of Pseudomonas bacteremia with probable prostatitis history of right 2nd finger abscess / purulent skin and skin structure infection S/P I and D DM atrial fibrillation obesity with BMI 35 Plan will start Daptomycin and Merrem pending cultures from the lumbar vertebral area ; follow up Neurosurgery evaluation and recommendations will monitor clinically
--- NOTE | 2017-06-27 15:38 | CP.PCM.CON ---
History of Present Illness - History of Present Illness History of Present Illness: SPINE CONSULT Pt seen and examined. Full consult dictated. Await results of aspiration but bacteria likely same as urine. Pt intact neurologically and not describing terrible low back pain so no operative intervention indicated at this time. Tx. Past Patient History - Infectious Disease Hx of Infectious Diseases: None - Tetanus Immunizations Tetanus Immunization: Unknown - Past Medical History & Family History Past Medical History?: Yes Past Family History: Reviewed and not pertinent - Past Social History Smoking Status: Former Smoker - CARDIAC Hx Cardiac Disorders: Yes (cad) Hx Congestive Heart Failure: Yes Hx Hypercholesterolemia: Yes - PULMONARY Hx Respiratory Disorders: No - NEUROLOGICAL Hx Neurological Disorder: No - HEENT Hx HEENT Problems: Yes (uses glasses) - RENAL Hx Renal Failure: Yes - ENDOCRINE/METABOLIC Hx Diabetes Mellitus Type 2: Yes - HEMATOLOGICAL/ONCOLOGICAL Hx Blood Disorders: No - INTEGUMENTARY Hx Dermatological Problems: No - MUSCULOSKELETAL/RHEUMATOLOGICAL Hx Back Pain: Yes Hx Falls: Yes - GASTROINTESTINAL Hx Gastrointestinal Disorders: No - GENITOURINARY/GYNECOLOGICAL Hx Genitourinary Disorders: Yes (frequency, bladder stone) Hx Hematuria: Yes (3 or 4 yrs ago) Hx Prostate Problems: Yes (prostate obstruction,cysotscopy) Hx Urinary Tract Infection: Yes - PSYCHIATRIC Hx Psychophysiologic Disorder: No Hx Depression: No Hx Emotional Abuse: No Hx Physical Abuse: No Hx Substance Use: No - SURGICAL HISTORY Hx Surgeries: Yes (TURP GREEN LIGHT LASER) Hx Cardiac Catheterization: Yes Hx Coronary Stent: Yes - ANESTHESIA Hx Anesthesia: Yes Hx Anesthesia Reactions: No Hx Malignant Hyperthermia: No Meds Allergies/Adverse Reactions: Allergies Allergy/AdvReac Type Severity Reaction Status Date / Time No Known Allergies Allergy Verified 04/10/17 12:22 - Medications Medications: Current Medications Acetaminophen (Tylenol 325mg Tab) 650 mg PO Q4 PRN PRN Reason: Pain, Mild (1-3) Apixaban (Eliquis) 5 mg PO Q12 [facility] PRN Reason: Protocol Last Admin: 06/25/17 09:43 Dose: 5 mg Aspirin (Ecotrin) 81 mg PO DAILY [facility] Last Admin: 06/27/17 14:11 Dose: 81 mg Hydrochlorothiazide (Hydrodiuril) 25 mg PO DAILY [facility] Last Admin: 06/27/17 14:08 Dose: 25 mg Sodium Chloride (Sodium Chloride 0.45%) 1,000 mls @ 80 mls/hr IV .[id number] [facility] Stop: 06/27/17 18:00 Last Admin: 06/27/17 13:09 Dose: 80 mls/hr Daptomycin 680 mg/ Sodium (Chloride) 100 mls @ 200 mls/hr IV Q24H [facility] Stop: 07/02/17 12:46 Last Admin: 06/27/17 14:24 Dose: 200 mls/hr Meropenem 1g/NS 100mL IVPB (Meropenem 1g/Ns 100ml Ivpb) 1 gm in 100 mls @ 100 mls/hr IVPB Q12 [facility] PRN Reason: Protocol Stop: 07/04/17 12:31 Last Admin: 06/27/17 12:54 Dose: 100 mls/hr Metformin HCl (Glucophage) 500 mg PO BIDWM [facility] Last Admin: 06/27/17 08:07 Dose: Not Given Metoprolol Succinate (Toprol Xl) 50 mg PO BRK [facility] Last Admin: 06/27/17 09:00 Dose: 50 mg Nystatin (Nystop Topical Powder) 1 gm TOP DAILY [facility] Last Admin: 06/27/17 14:11 Dose: 1 applic Oxycodone/Acetaminophen (Percocet 5/325 Mg Tab) 1 tab PO Q4H PRN PRN Reason: Pain, moderate (4-7) Stop: 06/30/17 11:10 Last Admin: 06/27/17 12:57 Dose: 1 tab Oxycodone/Acetaminophen (Percocet 10/325 Mg Tab) 1 tab PO Q6H PRN PRN Reason: Pain, severe (8-10) Pregabalin (Lyrica) 75 mg PO BID [facility] Last Admin: 06/27/17 14:11 Dose: 75 mg Senna/Docusate Sodium (Senokot S 50 Mg-8.6 Mg) 1 tab PO BID [facility] Last Admin: 06/27/17 14:08 Dose: 1 tab Results - Vital Signs Recent Vital Signs: Last Vital Signs Temp 98.1 F 06/27/17 12:10 Pulse 81 06/27/17 12:10 Resp 23 06/27/17 12:10 BP 101/59 L 06/27/17 12:10 Pulse Ox 97 06/27/17 12:10 - Labs Result Diagrams: 06/25/17 08:50 06/24/17 00:51 Labs: Laboratory Results - last 24 hr 06/26/17 06/26/17 06/27/17 15:57 21:18 07:38 POC Glucose (mg/dL) 171 H 164 H 136 H
--- NOTE | 2017-06-27 16:59 | CP.PCM.PN ---
<Héctor Nelson - Last Filed: 06/27/17 16:55> Subjective - Date & Time of Evaluation Date of Evaluation: 06/27/17 Time of Evaluation: 09:50 - Subjective Subjective: Neurology Progress Note for Dr. Truong Service Patient seen and examined at bedside. No acute events reported overnight. Patient resting comfortably in bed, denies any acute complaints other than chronic back pain. Still denies any acute complaints, including chest pain, shortness of breath, fevers/chills, nausea/emesis, diarrhea/constipation, dysuria/hematuria, or focal weakness/paresthesias. No change in chronic back pain, unremarkable at rest, with exacerbation and radiation down left leg with movement engaging the lumbar spine. Objective - Vital Signs/Intake and Output Vital Signs (last 24 hours): Temp Pulse Resp BP Pulse Ox 98.1 F 81 23 101/59 L 97 06/27/17 12:10 06/27/17 12:10 06/27/17 12:10 06/27/17 12:10 06/27/17 12:10 Intake and Output: 06/27/17 06/27/17 06:59 18:59 Intake Total 480 150 Output Total 500 Balance -20 150 - Medications Medications: Current Medications Acetaminophen (Tylenol 325mg Tab) 650 mg PO Q4 PRN PRN Reason: Pain, Mild (1-3) Apixaban (Eliquis) 5 mg PO Q12 [facility] PRN Reason: Protocol Last Admin: 06/25/17 09:43 Dose: 5 mg Aspirin (Ecotrin) 81 mg PO DAILY [facility] Last Admin: 06/27/17 14:11 Dose: 81 mg Hydrochlorothiazide (Hydrodiuril) 25 mg PO DAILY [facility] Last Admin: 06/27/17 14:08 Dose: 25 mg Sodium Chloride (Sodium Chloride 0.45%) 1,000 mls @ 80 mls/hr IV .[id number] [facility] Stop: 06/27/17 18:00 Last Admin: 06/27/17 13:09 Dose: 80 mls/hr Daptomycin 680 mg/ Sodium (Chloride) 100 mls @ 200 mls/hr IV Q24H [facility] Stop: 07/02/17 12:46 Last Admin: 06/27/17 14:24 Dose: 200 mls/hr Meropenem 1g/NS 100mL IVPB (Meropenem 1g/Ns 100ml Ivpb) 1 gm in 100 mls @ 100 mls/hr IVPB Q12 [facility] PRN Reason: Protocol Stop: 07/04/17 12:31 Last Admin: 06/27/17 12:54 Dose: 100 mls/hr Metformin HCl (Glucophage) 500 mg PO BIDWM [facility] Last Admin: 06/27/17 08:07 Dose: Not Given Metoprolol Succinate (Toprol Xl) 50 mg PO BRK [facility] Last Admin: 06/27/17 09:00 Dose: 50 mg Nystatin (Nystop Topical Powder) 1 gm TOP DAILY [facility] Last Admin: 06/27/17 14:11 Dose: 1 applic Oxycodone/Acetaminophen (Percocet 5/325 Mg Tab) 1 tab PO Q4H PRN PRN Reason: Pain, moderate (4-7) Stop: 06/30/17 11:10 Last Admin: 06/27/17 12:57 Dose: 1 tab Oxycodone/Acetaminophen (Percocet 10/325 Mg Tab) 1 tab PO Q6H PRN PRN Reason: Pain, severe (8-10) Pregabalin (Lyrica) 75 mg PO BID [facility] Last Admin: 06/27/17 14:11 Dose: 75 mg Senna/Docusate Sodium (Senokot S 50 Mg-8.6 Mg) 1 tab PO BID [facility] Last Admin: 06/27/17 14:08 Dose: 1 tab - Labs Labs: PT 14.0 Seconds (9.9-11.8) H 06/26/17 06:40 INR 1.30 (0.93-1.08) H 06/26/17 06:40 APTT 29.9 Seconds (23.7-30.8) 06/26/17 06:40 - Additional Findings Additional findings: - Constitutional Appears: Well, Non-toxic, No Acute Distress - Head Exam Head Exam: ATRAUMATIC, NORMAL INSPECTION, NORMOCEPHALIC - Eye Exam Eye Exam: EOMI, Normal appearance, PERRL. absent: Conjunctival injection, Scleral icterus Pupil Exam: NORMAL ACCOMODATION, PERRL. absent: Fixed, Irregular, Unequal - ENT Exam ENT Exam: Mucous Membranes Moist - Neck Exam Neck Exam: Full ROM, Normal Inspection - Respiratory Exam Respiratory Exam: Clear to Ausculation Bilateral, NORMAL BREATHING PATTERN. absent: Accessory Muscle Use, Chest Wall Tenderness, Decreased Breath Sounds, Rales, Rhonchi, Wheezes, Respiratory Distress - Cardiovascular Exam Cardiovascular Exam: Irregular Rhythm, RRR, +S1, +S2. absent: Bradycardia, Tachycardia, REGULAR RHYTHM, JVD, +S4 - GI/Abdominal Exam GI & Abdominal Exam: Soft, Normal Bowel Sounds. absent: Distended, Firm, Guarding, Rigid, Tenderness, Diminished Bowel Sounds, Hyperactive Bowel Sounds, Hypoactive Bowel Sounds - Extremities Exam Extremities Exam: Normal Capillary Refill, Normal Inspection. absent: Calf Tenderness, Joint Swelling, Pedal Edema, Tenderness - Back Exam Pain elicited with movement that engages lumbar spine, no LE or lumbar spine pain at rest - Neurological Exam Neurological Exam: Alert, Awake, Oriented x3 (self, location, year) Neuro motor strength exam: Left Upper Extremity: 5, Right Upper Extremity: 5, Left Lower Extremity: 4, Right Lower Extremity: 4 Additional comments: Sensory grossly intact and equal in bilateral LE and UE - Psychiatric Exam Psychiatric exam: Normal Affect, Normal Mood - Skin Skin Exam: Dry, Intact, Normal Color, Warm Assessment and Plan - Assessment and Plan (Free Text) Assessment: This is a 81 yo M with PMH of HTN, AFib, DM, CAD, and chronic back pain who presented to [facility] for fall from wheelchair in which struck his head, but reports no loss of consciousness. He was later found on CT of lumbar spine to have discitis osteomyelitis, which have worsened since pt's last admission to [facility]. 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 He is s/p disc aspiration by IR today, and is pending eval by Neurosurgery, given concern for cauda equina in the setting of osteo of lumbar spine, MRI findings, and urinary retention requiring akers placement. Plan: 1) Given MRI findings of cauda-equina nerve roots thickening, Neurosurgery consulted, appreciate their input 2) Lyrica 75mg PO BID for neuropathy Patient seen, examined, and discussed with attending, Dr. Loco Truong. <Beltran Truong - Last Filed: 06/27/17 17:08> Objective - Vital Signs/Intake and Output Vital Signs (last 24 hours): Temp Pulse Resp BP Pulse Ox 98.1 F 81 23 101/59 L 97 06/27/17 12:10 06/27/17 12:10 06/27/17 12:10 06/27/17 12:10 06/27/17 12:10 Intake and Output: 06/27/17 06/27/17 06:59 18:59 Intake Total 480 150 Output Total 500 Balance -20 150 - Medications Medications: Current Medications Acetaminophen (Tylenol 325mg Tab) 650 mg PO Q4 PRN PRN Reason: Pain, Mild (1-3) Apixaban (Eliquis) 5 mg PO Q12 [facility] PRN Reason: Protocol Last Admin: 06/25/17 09:43 Dose: 5 mg Aspirin (Ecotrin) 81 mg PO DAILY [facility] Last Admin: 06/27/17 14:11 Dose: 81 mg Hydrochlorothiazide (Hydrodiuril) 25 mg PO DAILY [facility] Last Admin: 06/27/17 14:08 Dose: 25 mg Sodium Chloride (Sodium Chloride 0.45%) 1,000 mls @ 80 mls/hr IV .[id number] [facility] Stop: 06/27/17 18:00 Last Admin: 06/27/17 13:09 Dose: 80 mls/hr Daptomycin 680 mg/ Sodium (Chloride) 100 mls @ 200 mls/hr IV Q24H [facility] Stop: 07/02/17 12:46 Last Admin: 06/27/17 14:24 Dose: 200 mls/hr Meropenem 1g/NS 100mL IVPB (Meropenem 1g/Ns 100ml Ivpb) 1 gm in 100 mls @ 100 mls/hr IVPB Q12 [facility] PRN Reason: Protocol Stop: 07/04/17 12:31 Last Admin: 06/27/17 12:54 Dose: 100 mls/hr Metformin HCl (Glucophage) 500 mg PO BIDWM [facility] Last Admin: 06/27/17 08:07 Dose: Not Given Metoprolol Succinate (Toprol Xl) 50 mg PO BRK [facility] Last Admin: 06/27/17 09:00 Dose: 50 mg Nystatin (Nystop Topical Powder) 1 gm TOP DAILY [facility] Last Admin: 06/27/17 14:11 Dose: 1 applic Oxycodone/Acetaminophen (Percocet 5/325 Mg Tab) 1 tab PO Q4H PRN PRN Reason: Pain, moderate (4-7) Stop: 06/30/17 11:10 Last Admin: 06/27/17 12:57 Dose: 1 tab Oxycodone/Acetaminophen (Percocet 10/325 Mg Tab) 1 tab PO Q6H PRN PRN Reason: Pain, severe (8-10) Pregabalin (Lyrica) 75 mg PO BID [facility] Last Admin: 06/27/17 14:11 Dose: 75 mg Senna/Docusate Sodium (Senokot S 50 Mg-8.6 Mg) 1 tab PO BID [facility] Last Admin: 06/27/17 14:08 Dose: 1 tab - Labs Labs: PT 14.0 Seconds (9.9-11.8) H 06/26/17 06:40 INR 1.30 (0.93-1.08) H 06/26/17 06:40 APTT 29.9 Seconds (23.7-30.8) 06/26/17 06:40 Attending/Attestation - Attestation I have personally seen and examined this patient.: Yes I have fully participated in the care of the patient.: Yes I have reviewed all pertinent clinical information, including history, physical exam and plan: Yes
--- NOTE | 2017-06-27 19:27 | CT ---
PROCEDURE: CT guided L3-4 disc space aspiration and biopsy. HISTORY: Discitis/osteomyelitis at L2-3 and L3-4. Aspirate and biopsy for diagnosis. PHYSICIAN(S): Jonathan Webb MD. TECHNIQUE: The relative risks and indications of the procedure were explained to the patient and his daughter and consent obtained. The patient was placed prone on the CT scanner and preliminary images through the lumbar spine obtained. Conscious sedation and monitoring were provided throughout the procedure by a nurse. Destructive changes and inflammatory changes are noted at the L2-3 and L3-4 disc space levels. The L3-4 disc space level was selected for aspiration.. A left posterior paraspinal approach was selected and the area prepped and draped in the usual sterile fashion. 1% Xylocaine was used to anesthetize the skin and soft tissues. A 18 gauge needle was advanced into L3/4 disc space. 3-4 cc of bloody fluid was aspirated and biopsied. The specimen was sent for culture. IMPRESSION: 1. CT-guided L3-4 disc space aspiration and biopsy as described above.
--- NOTE | 2017-06-28 04:44 | CON ---
DATE: 06/27/2017 REASON FOR CONSULTATION: Possible diskitis, lumbar spine. HISTORY OF PRESENT ILLNESS: The patient is a pleasant 81-year-old gentleman who evidently has had recent bouts of infection. He had sepsis in April consistent with Pseudomonas bacteremia with prostatitis and UTI. He also had a recent history of staph infection right index finger that was treated with an I&D. The notes states that he was admitted with intractable back pain; although, he states he has had back pain for years. He also states that while lying in bed, the pain is may be 1/10. He denies any fevers or chills. There is a report that he fell out of his wheelchair at [facility], but he states he does ambulate with a walker. He does not report any loss of bowel or bladder control. PAST MEDICAL HISTORY: Significant for hypertension and hypercholesterolemia. He is diabetic. He has a history of coronary artery disease as well as the above infections. There is a report of dementia though he seems to respond well to the questions that he was asked. MEDICATIONS: Are as listed on the chart. ALLERGIES: HE HAS NO KNOWN ALLERGIES. PHYSICAL EXAMINATION: EXTREMITIES: He is tender across the lower spine. He moves both lower extremities actively. He states his sensory is intact to light touch. He has excellent motor strength distally. Distal pulses are just fair. No clonus or Babinski is noted. LABORATORY DATA: His white count is 7.4. His sed rate is 86 and his C-reactive protein is greater than 15. His radiologic studies are reviewed and it shows what appears to be and what is interpreted as a possible diskitis at the 2-3, 3-4, and 4-5 disk levels. He may have some little posterior collections or tissue present behind 2-3 and 3-4 and 4-5 is fairly well collapsed. The disks above 2-3 shows defecation, but no other changes. He has some arthritic stenosis at the levels as well not really too much pressure ventrally from any of the collections. IMPRESSION AND PLAN: Possible diskitis multilevel in the lumbar spine. He just had a CT-guided aspiration done today, so obviously will take a day or couple of days to get those culture reports. Certainly, if bacterium is isolated, then he will be treated appropriately for presumably six weeks of antibiotic treatment where there are bouts. Obviously, if one is identified, then that would be a treatment of choices. He really does not report severe low back pain and he remains neurologically intact at this time. Natural history is the infection is treated appropriately that these disks overtime will fuse themselves and no surgical intervention would be needed. Unless there is a change in neurologic status, repeat MRIs were not be indicated any sooner than at least 3 months more likely 6 months as the natural history is the appearance will get worse for several months before it gets better and if clinically he is doing well, then there is no reason to follow it with MRIs early in the course. If he complains of back pain, then a valle brace can be obtained for him to be worn when out of bed and that may give him some additional support and help to mobilize. Thank you for allowing me to participate in the care of your patient. Woody Rosenthal MD
[2017-06-28 07:27] LABS: ALB/GLOB RATIO 0.8 (1.1-1.8); ALKALINE PHOSPHATASE 103 U/L (38-133); ALT/SGPT 35 U/L (7-56); AST/SGOT 33 U/L (15-59); BLOOD UREA NITROGEN 23 mg/dL (7-21); CARBON DIOXIDE 26 mmol/L (21-33); CHLORIDE 100 mmol/L (98-107); GFR AFRICAN-AMERICAN > 60; GLUCOSE,RANDOM 120 mg/dL (70-110); HEMATOCRIT 35.4 % (42.0-52.0); MEAN CELL VOLUME 88.9 fl (80.0-105.0); MEAN CORPUSCULAR HEMOGLOBIN 28.9 pg (25.0-35.0); MEAN CORPUSCULAR HGB CONC 32.5 g/dl (31.0-37.0); MEAN PLATELET VOLUME 9.8 fl (7.0-11.0); POTASSIUM 3.5 mmol/L (3.6-5.0); RED CELL DISTRIBUTION WIDTH 13.9 % (11.5-14.5); SODIUM 137 mmol/L (132-148); TOTAL PROTEIN 6.8 g/dL (5.8-8.3); WHITE BLOOD COUNT 6.9 10^3/ul (4.5-11.0)
[2017-06-28] MEDS ORDERED: Potassium Chloride 20 mEq ER Tab PO ONE (08:30)
[2017-06-28] MEDS: Docusate-Senna 50 mg-8.6 mg Tab PO SCH ×2 (09:49→17:05)
[2017-06-28] MEDS: Metoprolol Succinate 50 mg XL Tab PO SCH (09:50)
[2017-06-28] MEDS: Oxycodone/Acetaminophen 5/325 mg Tab PO PRN (09:51)
[2017-06-28] MEDS: Meropenem 1g/NS 100mL IVPB 1 GM/100 ML PIGGYBACK IVPB SCH ×2 (09:51→21:21)
[2017-06-28] MEDS: Nystatin 100,000 Units/gm Topical Pow(15 gm) TOP SCH (09:51)
--- NOTE | 2017-06-28 14:24 | CP.PCM.PN ---
<Héctor Nelson - Last Filed: 06/28/17 14:20> Subjective - Date & Time of Evaluation Date of Evaluation: 06/28/17 Time of Evaluation: 09:30 - Subjective Subjective: Neurology Progress Note for Dr. Truong Service Patient seen and examined at bedside. No acute events reported overnight. No acute changes since last examination; patient still resting comfortably in bed, denies any acute complaints other than chronic back pain. No change in chronic back pain, unremarkable at rest, with exacerbation and radiation down left leg with movement engaging the lumbar spine. Objective - Vital Signs/Intake and Output Vital Signs (last 24 hours): Temp Pulse Resp BP Pulse Ox 97.8 F 69 20 100/60 97 06/28/17 07:00 06/28/17 07:00 06/28/17 07:00 06/28/17 09:50 06/28/17 07:00 Intake and Output: 06/28/17 06/28/17 06:59 18:59 Intake Total 480 Output Total 2100 Balance -1620 - Medications Medications: Current Medications Acetaminophen (Tylenol 325mg Tab) 650 mg PO Q4 PRN PRN Reason: Pain, Mild (1-3) Apixaban (Eliquis) 5 mg PO Q12 DAVID PRN Reason: Protocol Last Admin: 06/25/17 09:43 Dose: 5 mg Aspirin (Ecotrin) 81 mg PO DAILY [facility] Last Admin: 06/28/17 09:49 Dose: 81 mg Hydrochlorothiazide (Hydrodiuril) 25 mg PO DAILY [facility] Last Admin: 06/28/17 09:49 Dose: 25 mg Daptomycin 680 mg/ Sodium (Chloride) 100 mls @ 200 mls/hr IV Q24H [facility] Stop: 07/02/17 12:46 Last Admin: 06/27/17 14:24 Dose: 200 mls/hr Meropenem 1g/NS 100mL IVPB (Meropenem 1g/Ns 100ml Ivpb) 1 gm in 100 mls @ 100 mls/hr IVPB Q12 DAVID PRN Reason: Protocol Stop: 07/04/17 12:31 Last Admin: 06/28/17 09:51 Dose: 100 mls/hr Metformin HCl (Glucophage) 500 mg PO BIDWM [facility] Last Admin: 06/28/17 09:49 Dose: 500 mg Metoprolol Succinate (Toprol Xl) 50 mg PO BRK [facility] Last Admin: 06/28/17 09:50 Dose: 50 mg Nystatin (Nystop Topical Powder) 1 gm TOP DAILY [facility] Last Admin: 06/28/17 09:51 Dose: 1 applic Oxycodone/Acetaminophen (Percocet 5/325 Mg Tab) 1 tab PO Q4H PRN PRN Reason: Pain, moderate (4-7) Stop: 06/30/17 11:10 Last Admin: 06/28/17 09:51 Dose: 1 tab Oxycodone/Acetaminophen (Percocet 10/325 Mg Tab) 1 tab PO Q6H PRN PRN Reason: Pain, severe (8-10) Pregabalin (Lyrica) 75 mg PO BID [facility] Last Admin: 06/28/17 09:49 Dose: 75 mg Senna/Docusate Sodium (Senokot S 50 Mg-8.6 Mg) 1 tab PO BID [facility] Last Admin: 06/28/17 09:49 Dose: 1 tab - Labs Labs: 06/28/17 07:00 06/28/17 07:00 PT 14.0 Seconds (9.9-11.8) H 06/26/17 06:40 INR 1.30 (0.93-1.08) H 06/26/17 06:40 APTT 29.9 Seconds (23.7-30.8) 06/26/17 06:40 - Additional Findings Additional findings: - Constitutional Appears: Well, Non-toxic, No Acute Distress - Head Exam Head Exam: ATRAUMATIC, NORMAL INSPECTION, NORMOCEPHALIC - Eye Exam Eye Exam: EOMI, Normal appearance, PERRL. absent: Conjunctival injection, Scleral icterus Pupil Exam: NORMAL ACCOMODATION, PERRL. absent: Fixed, Irregular, Unequal - ENT Exam ENT Exam: Mucous Membranes Moist - Neck Exam Neck Exam: Full ROM, Normal Inspection - Respiratory Exam Respiratory Exam: Clear to Ausculation Bilateral, NORMAL BREATHING PATTERN. absent: Accessory Muscle Use, Chest Wall Tenderness, Decreased Breath Sounds, Rales, Rhonchi, Wheezes, Respiratory Distress - Cardiovascular Exam Cardiovascular Exam: Irregular Rhythm, RRR, +S1, +S2. absent: Bradycardia, Tachycardia, REGULAR RHYTHM, JVD, +S4 - GI/Abdominal Exam GI & Abdominal Exam: Soft, Normal Bowel Sounds. absent: Distended, Firm, Guarding, Rigid, Tenderness, Diminished Bowel Sounds, Hyperactive Bowel Sounds, Hypoactive Bowel Sounds - Extremities Exam Extremities Exam: Normal Capillary Refill, Normal Inspection. absent: Calf Tenderness, Joint Swelling, Pedal Edema, Tenderness - Back Exam No vertebral tenderness to palpation, slight tenderness to palpation superior to R PSIS, bandaging on left lateral back at site of disc aspiration procedure - Neurological Exam Neurological Exam: Alert, Awake, Oriented x3 (self, location, year) Left Upper Extremity: 5/5, Right Upper Extremity: 5/5, Left Lower Extremity: 4/5 , Right Lower Extremity: 4/5 Sensory grossly intact and equal in bilateral LE and UE - Psychiatric Exam Psychiatric exam: Normal Affect, Normal Mood - Skin Skin Exam: Dry, Intact, Normal Color, Warm Assessment and Plan - Assessment and Plan (Free Text) Assessment: This is a 81 yo M with PMH of HTN, AFib, DM, CAD, and chronic back pain who [place] [facility] [place] in which struck his head, but reports no loss of consciousness. He was later found on CT of lumbar spine to have discitis osteomyelitis, which have worsened since pt's last admission to [facility]. 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 He is s/p disc aspiration by IR for speciation and sensitivities. As per Neurosurgery, no acute surgical intervention indicated. Plan: 1) Neurosurgery consulted, reports no acute surgical intervention indicated 2) Antibiotics for Osteo as per ID 3) Lyrica 75mg PO BID for neuropathy Patient examined and discussed with attending, Dr. Loco Truong. Please reconsult if patient experiences any changes in condition. <Beltran Truong - Last Filed: 06/28/17 14:25> Objective - Vital Signs/Intake and Output Vital Signs (last 24 hours): Temp Pulse Resp BP Pulse Ox 97.8 F 69 20 100/60 97 06/28/17 07:00 06/28/17 07:00 06/28/17 07:00 06/28/17 09:50 06/28/17 07:00 Intake and Output: 06/28/17 06/28/17 06:59 18:59 Intake Total 480 Output Total 2100 Balance -1620 - Medications Medications: Current Medications Acetaminophen (Tylenol 325mg Tab) 650 mg PO Q4 PRN PRN Reason: Pain, Mild (1-3) Apixaban (Eliquis) 5 mg PO Q12 [facility] PRN Reason: Protocol Last Admin: 06/25/17 09:43 Dose: 5 mg Aspirin (Ecotrin) 81 mg PO DAILY [facility] Last Admin: 06/28/17 09:49 Dose: 81 mg Hydrochlorothiazide (Hydrodiuril) 25 mg PO DAILY [facility] Last Admin: 06/28/17 09:49 Dose: 25 mg Daptomycin 680 mg/ Sodium (Chloride) 100 mls @ 200 mls/hr IV Q24H [facility] Stop: 07/02/17 12:46 Last Admin: 06/27/17 14:24 Dose: 200 mls/hr Meropenem 1g/NS 100mL IVPB (Meropenem 1g/Ns 100ml Ivpb) 1 gm in 100 mls @ 100 mls/hr IVPB Q12 [facility] PRN Reason: Protocol Stop: 07/04/17 12:31 Last Admin: 06/28/17 09:51 Dose: 100 mls/hr Metformin HCl (Glucophage) 500 mg PO BIDWM [facility] Last Admin: 06/28/17 09:49 Dose: 500 mg Metoprolol Succinate (Toprol Xl) 50 mg PO BRK [facility] Last Admin: 06/28/17 09:50 Dose: 50 mg Nystatin (Nystop Topical Powder) 1 gm TOP DAILY [facility] Last Admin: 06/28/17 09:51 Dose: 1 applic Oxycodone/Acetaminophen (Percocet 5/325 Mg Tab) 1 tab PO Q4H PRN PRN Reason: Pain, moderate (4-7) Stop: 06/30/17 11:10 Last Admin: 06/28/17 09:51 Dose: 1 tab Oxycodone/Acetaminophen (Percocet 10/325 Mg Tab) 1 tab PO Q6H PRN PRN Reason: Pain, severe (8-10) Pregabalin (Lyrica) 75 mg PO BID [facility] Last Admin: 06/28/17 09:49 Dose: 75 mg Senna/Docusate Sodium (Senokot S 50 Mg-8.6 Mg) 1 tab PO BID [facility] Last Admin: 06/28/17 09:49 Dose: 1 tab - Labs Labs: 06/28/17 07:00 06/28/17 07:00 PT 14.0 Seconds (9.9-11.8) H 06/26/17 06:40 INR 1.30 (0.93-1.08) H 06/26/17 06:40 APTT 29.9 Seconds (23.7-30.8) 06/26/17 06:40 Attending/Attestation - Attestation I have personally seen and examined this patient.: Yes I have fully participated in the care of the patient.: Yes I have reviewed all pertinent clinical information, including history, physical exam and plan: Yes
--- NOTE | 2017-06-28 14:40 | CP.PCM.PN ---
Subjective - Date & Time of Evaluation Date of Evaluation: 06/28/17 Time of Evaluation: 11:15 - Subjective Subjective: Patient is comfortable in bed but still complaining of some back pain, no fevers , no leg weakness, no bowel or urinary incontinence. Objective - Vital Signs/Intake and Output Vital Signs (last 24 hours): Temp Pulse Resp BP Pulse Ox 97.8 F 69 20 98/54 L 97 06/28/17 07:00 06/28/17 07:00 06/28/17 07:00 06/28/17 07:00 06/28/17 07:00 Intake and Output: 06/28/17 06/28/17 06:59 18:59 Intake Total 480 Output Total 2100 Balance -1620 - Medications Medications: Current Medications Acetaminophen (Tylenol 325mg Tab) 650 mg PO Q4 PRN PRN Reason: Pain, Mild (1-3) Apixaban (Eliquis) 5 mg PO Q12 DAVID PRN Reason: Protocol Last Admin: 06/25/17 09:43 Dose: 5 mg Aspirin (Ecotrin) 81 mg PO DAILY [facility] Last Admin: 06/27/17 14:11 Dose: 81 mg Hydrochlorothiazide (Hydrodiuril) 25 mg PO DAILY [facility] Last Admin: 06/27/17 14:08 Dose: 25 mg Daptomycin 680 mg/ Sodium (Chloride) 100 mls @ 200 mls/hr IV Q24H [facility] Stop: 07/02/17 12:46 Last Admin: 06/27/17 14:24 Dose: 200 mls/hr Meropenem 1g/NS 100mL IVPB (Meropenem 1g/Ns 100ml Ivpb) 1 gm in 100 mls @ 100 mls/hr IVPB Q12 [facility]ID PRN Reason: Protocol Stop: 07/04/17 12:31 Last Admin: 06/27/17 12:54 Dose: 100 mls/hr Metformin HCl (Glucophage) 500 mg PO BIDWM [facility] Last Admin: 06/27/17 18:46 Dose: 500 mg Metoprolol Succinate (Toprol Xl) 50 mg PO BRK [facility] Last Admin: 06/27/17 09:00 Dose: 50 mg Nystatin (Nystop Topical Powder) 1 gm TOP DAILY [facility] Last Admin: 06/27/17 14:11 Dose: 1 applic Oxycodone/Acetaminophen (Percocet 5/325 Mg Tab) 1 tab PO Q4H PRN PRN Reason: Pain, moderate (4-7) Stop: 06/30/17 11:10 Last Admin: 06/27/17 12:57 Dose: 1 tab Oxycodone/Acetaminophen (Percocet 10/325 Mg Tab) 1 tab PO Q6H PRN PRN Reason: Pain, severe (8-10) Pregabalin (Lyrica) 75 mg PO BID [facility] Last Admin: 06/27/17 18:46 Dose: 75 mg Senna/Docusate Sodium (Senokot S 50 Mg-8.6 Mg) 1 tab PO BID [facility] Last Admin: 06/27/17 18:47 Dose: 1 tab - Labs Labs: 06/28/17 07:00 06/28/17 07:00 PT 14.0 Seconds (9.9-11.8) H 06/26/17 06:40 INR 1.30 (0.93-1.08) H 06/26/17 06:40 APTT 29.9 Seconds (23.7-30.8) 06/26/17 06:40 - Constitutional Appears: Non-toxic, No Acute Distress - Head Exam Head Exam: NORMAL INSPECTION - ENT Exam ENT Exam: Mucous Membranes Moist - Neck Exam Neck Exam: absent: Lymphadenopathy, Meningismus - Respiratory Exam Respiratory Exam: Decreased Breath Sounds - Cardiovascular Exam Cardiovascular Exam: +S1, +S2 - GI/Abdominal Exam GI & Abdominal Exam: Soft. 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
[2017-06-29 07:21] LABS: ALB/GLOB RATIO 0.8 (1.1-1.8); ALKALINE PHOSPHATASE 108 U/L (38-126); ALT/SGPT 39 U/L (7-56); AST/SGOT 34 U/L (17-59); BLOOD UREA NITROGEN 21 mg/dL (7-21); CALCIUM 9.3 mg/dL (8.4-10.5); CARBON DIOXIDE 27 mmol/L (21-33); CHLORIDE 101 mmol/L (98-107); GFR AFRICAN-AMERICAN > 60; GLUCOSE,RANDOM 111 mg/dL (70-110); POTASSIUM 3.5 mmol/L (3.6-5.0); SODIUM 137 mmol/L (132-148); TOTAL PROTEIN 6.8 g/dL (5.8-8.3)
[2017-06-29] MEDS ORDERED: Potassium Chloride 40 mEq/30 ml LIQ UD PO ONE (08:21)
[2017-06-29] MEDS: Docusate-Senna 50 mg-8.6 mg Tab PO SCH ×2 (09:09→17:35)
[2017-06-29] MEDS: Meropenem 1g/NS 100mL IVPB 1 GM/100 ML PIGGYBACK IVPB SCH ×2 (09:10→21:17)
[2017-06-29] MEDS: Nystatin 100,000 Units/gm Topical Pow(15 gm) TOP SCH (09:10)
[2017-06-29] MEDS: POLYETHYLENE GLYCOL 3350 17 GM/Dose PACKET PO SCH ×2 (09:10→17:35)
[2017-06-29] MEDS: Metoprolol Succinate 50 mg XL Tab PO SCH (09:11)
--- NOTE | 2017-06-29 12:24 | PN ---
DATE: 06/29/2017 SUBJECTIVE: The patient is in bed, in no acute distress, nontoxic. PHYSICAL EXAMINATION VITAL SIGNS: Temperature is 98, blood pressure is 98/50, respiratory rate of 18, heart rate of 87. HEENT: Unremarkable. NECK: Supple. LUNGS: Decreased breath sounds. HEART: Normal S1 and S2. ABDOMEN: Soft. LABORATORY EXAMINATION: Reveals white count of 6.9, hemoglobin of 11, platelets of 279. Chemistry reveals a BUN of 21, creatinine of 0.9. Urinalysis is noted. Microbiology reveals a yeast in the urine. The blood cultures are negative. The cultures from the body fluid, cultures at this time no organism seen. No growth after 24 hours. Review of orders reveals that the patient to be on daptomycin and meropenem. ASSESSMENT AND PLAN: An 81-year-old with vertebral osteomyelitis and diskitis of L2, L3, L4, L5 status post CAT scan guided aspiration biopsy, post procedure day #2, with a history of pseudomonas bacteriemia, probable prostatitis and a history of right second finger abscess, purulent, with skin infection in a diabetic and atrial fibrillation, obesity. On daptomycin, meropenem day #3. Culture results so far no growth. We will continue to follow the patient. We will need prolonged antibiotic therapy and we will check on the final culture results. Marin Callejas MD
[2017-06-30 07:12] LABS: MEAN CELL VOLUME 88.8 fl (80.0-105.0); MEAN CORPUSCULAR HEMOGLOBIN 30.7 pg (25.0-35.0); MEAN CORPUSCULAR HGB CONC 34.6 g/dl (31.0-37.0); MEAN PLATELET VOLUME 9.4 fl (7.0-11.0); RED CELL DISTRIBUTION WIDTH 13.9 % (11.5-14.5)
[2017-06-30 07:22] LABS: ALB/GLOB RATIO 0.8 (1.1-1.8); ALKALINE PHOSPHATASE 119 U/L (38-126); ALT/SGPT 45 U/L (7-56); AST/SGOT 35 U/L (17-59); BLOOD UREA NITROGEN 16 mg/dL (7-21); CALCIUM 9.5 mg/dL (8.4-10.5); CARBON DIOXIDE 27 mmol/L (21-33); CHLORIDE 102 mmol/L (98-107); GFR AFRICAN-AMERICAN > 60; GLUCOSE,RANDOM 136 mg/dL (70-110); POTASSIUM 3.7 mmol/L (3.6-5.0); SODIUM 137 mmol/L (132-148)
[2017-06-30] MEDS: Metoprolol Succinate 50 mg XL Tab PO SCH (08:57)
[2017-06-30] MEDS: Meropenem 1g/NS 100mL IVPB 1 GM/100 ML PIGGYBACK IVPB SCH ×2 (11:04→21:26)
[2017-06-30] MEDS: POLYETHYLENE GLYCOL 3350 17 GM/Dose PACKET PO SCH ×2 (11:04→17:01)
[2017-06-30] MEDS: Docusate-Senna 50 mg-8.6 mg Tab PO SCH ×2 (12:27→17:01)
--- NOTE | 2017-06-30 14:15 | PN ---
DATE: 06/30/2017 SUBJECTIVE: The patient is in bed, was seen earlier this morning. No fever and no chills. PHYSICAL EXAMINATION: VITAL SIGNS: Temperature is 98, blood pressure is 118/70, respiratory rate of 20, heart rate of 93. HEENT: Unremarkable. NECK: Supple. LUNGS: Decreased breath sounds. HEART: Normal S1 and S2. ABDOMEN: Soft and nontender. LABORATORY DATA: Reveals a white count of 6, hemoglobin of 12, and platelets of 252. BUN of 16, creatinine of 0.7. Urinalysis reveals trace of protein and too numerous WBCs and there is yeast. Chemistries are noted and the patient did have a creatinine of 1.6 on 06/24/2017 and did have a creatinine of 2.2 on 03/03/2017 and a creatinine of 1.6 on 03/04/2017 with underlying trace protein. Urinalysis is noted and microbiology as far the cultures are negative. ASSESSMENT AND PLAN: This is an 81-year-old male with vertebral osteomyelitis and diskitis at L2, L3, L4, and L5, status post CAT scan-guided aspiration pneumonia on postprocedure day #3 and history of Pseudomonas bacteremia and probable prostatitis, history of right second finger abscess with purulent skin and soft tissue infection, on daptomycin and meropenem day #4, unable to use vancomycin because of proteinuria and now acute kidney injuries in two separate occasions in this patient. Would recommend daptomycin and meropenem, unable to use vancomycin. Since the cultures are negative at this time, we need to treat the patient empirically with daptomycin and meropenem for 6 to 8 weeks with a weekly CBC and SMA-18, sed rate, C-reactive protein, and CPK once weekly. Case discussed with Dr. Todd. Marin Callejas MD
[2017-06-30] MEDS: Nystatin 100,000 Units/gm Topical Pow(15 gm) TOP SCH (16:56)
--- NOTE | 2017-06-30 19:57 | PN ---
DATE: 06/30/2017 SUBJECTIVE: The patient has no complaints of any chest pain and no shortness of breath. No headaches. PHYSICAL EXAMINATION: GENERAL: The patient is lying in bed, flat, comfortable. VITAL SIGNS: Temperature is 98.7, pulse is 60, blood pressure 118/72, respirations 20. HEENT: No oral lesion. Anicteric sclerae. Moist mucosa. NECK: No JVD, adenopathy, or thyromegaly. CARDIOVASCULAR: S1 and S2, regular. No murmurs, rubs, or gallops. LUNGS: Clear to auscultation bilaterally. No wheeze, rales, or rhonchi. ABDOMEN: Bowel sounds are positive, soft, nontender and nondistended. EXTREMITIES: no cyanosis, clubbing or edema. ASSESSMENT: 1. Vertebral Osteomyelitis of L2, L3, L4 2. Dementia Alzheimer's type. 3. Hypertension. 4. Dyslipidemia. 5. Fall. 6. Chronic kidney disease stage III. 7. Atrial fibrillation, on Eliquis. PLAN: The patient had an elevated CRP. The patient is on Daptomycin. It seems as though, will most likely not take the patient on Daptomycin, because of cost issues. The patient is on Eliquis for anticoagulation, is on hydrochlorothiazide for hypertension. He is going to continue with meropenem for antibiotics. The patient is receiving Tylenol as needed. Pardeep Jorge MD MTDD
[2017-07-01 01:21] VITALS: RESP 18
[2017-07-01] MEDS: Metoprolol Succinate 50 mg XL Tab PO SCH (08:30)
[2017-07-01] MEDS: Meropenem 1g/NS 100mL IVPB 1 GM/100 ML PIGGYBACK IVPB SCH (10:51)
[2017-07-01] MEDS: POLYETHYLENE GLYCOL 3350 17 GM/Dose PACKET PO SCH (10:56)
[2017-07-01] MEDS: Docusate-Senna 50 mg-8.6 mg Tab PO SCH (10:57)
--- NOTE | 2017-07-01 11:56 | PN ---
DATE: 07/01/2017 SUBJECTIVE: The patient has no complaints of any chest pain. No shortness of breath. No headaches. No dizziness. PHYSICAL EXAMINATION: VITAL SIGNS: Temperature is 98, pulse is 70, blood pressure is 99/63, respirations 18. GENERAL: The patient is lying in bed, flat, comfortable. HEENT: No oral lesion. Anicteric sclerae. Moist mucosa. NECK: No JVD, adenopathy, or thyromegaly. CARDIOVASCULAR: S1 and S2, regular. No murmurs, rubs, or gallops. LUNGS: Clear to auscultation bilaterally. No wheeze, rales, or rhonchi. ABDOMEN: Bowel sounds are positive, soft, nontender and nondistended. EXTREMITIES: No cyanosis, clubbing or edema. LABORATORY DATA: White count is 6.0, hemoglobin 12.9. Creatinine is 0.7. ASSESSMENT: 1. Osteomyelitis of L2, L3 and L4. 2. Dementia, Alzheimer's type. 3. Hypertension. 4. Dyslipidemia. 5. Chronic kidney disease stage III. 6. Fall. 7. Atrial fibrillation, on Eliquis. PLAN: The patient is on daptomycin for antibiotics. He is going to continue on Eliquis. The patient is going to continue with Lyrica for neuropathy. The patient is on Colace for constipation. He is on Tylenol as needed. The patient is on carbohydrate consistent diet. I did speak with the patient's daughter at the bedside to give an update on the patient's diagnoses and plan of care. Main issue is about getting him back to [facility], but the patient is on daptomycin and they may not accept him because of this. Pardeep Jorge MD
--- NOTE | 2017-07-01 13:34 | PN ---
DATE: 07/01/2017 SUBJECTIVE: The patient is in bed, in no acute distress. PHYSICAL EXAMINATION: VITAL SIGNS: Temperature is 98, blood pressure is 118/70, respiratory rate of 16. HEENT: Unremarkable. NECK: Supple. LUNGS: Decreased breath sounds. HEART: Normal S1 and S2. ABDOMEN: Soft and nontender. LABORATORY DATA: Reveals a white count is 6.0, hemoglobin of 12, platelets of 259. BUN of 16, creatinine of 0.7. Urine analysis is noted. ASSESSMENT AND PLAN: This is an 81-year-old male with vertebral osteomyelitis and diskitis of L2, L3, L4, and L5, status post CAT scan-guided aspiration, post procedure day #4 and a history of Pseudomonas bacteremia and probable prostatitis, history of right second finger abscess in the past with purulent skin and skin soft tissue infection, currently on daptomycin and meropenem, day #5. Patient with proteinuria and kidney disease. Unable to use vancomycin, no other option are available. Would recommend daptomycin and meropenem. Thus far, the cultures are negative. Recommended weekly CBC, SMA-18, sed rate, C-reactive protein, and a CPK once weekly. Now, the cultures results are reported to be positive for pseudomonas. As we speak, I was notified of the culture result, positive for pseudomonas, may discontinue the daptomycin and complete with meropenem. We will discontinue the daptomycin and complete with meropenem. Marin Callejas MD
[2017-07-01 17:16] VITALS: BP 106/42; PULSE 79; TEMP 98.1; O2SAT 94
--- NOTE | 2017-07-02 22:17 | CP.PCM.PN ---
Subjective - Date & Time of Evaluation Date of Evaluation: 06/27/17 Time of Evaluation: 10:00 - Subjective Subjective: Comfortable in bed. Back pain on slight movement. No fever, cough. CT guided FNA of spine done today for cultures. No bladder, bowel disturbance. Moving all limbs. Objective - Vital Signs/Intake and Output Vital Signs (last 24 hours): Temp Pulse Resp BP Pulse Ox 98.1 F 79 18 106/42 L 94 L 07/01/17 16:00 07/01/17 16:00 07/01/17 16:00 07/01/17 16:00 07/01/17 16:00 - Labs Labs: 06/30/17 07:00 06/30/17 07:00 PT 14.0 Seconds (9.9-11.8) H 06/26/17 06:40 INR 1.30 (0.93-1.08) H 06/26/17 06:40 APTT 29.9 Seconds (23.7-30.8) 06/26/17 06:40 - Constitutional Appears: Well, Non-toxic - Head Exam Head Exam: ATRAUMATIC, NORMAL INSPECTION, NORMOCEPHALIC - Eye Exam Eye Exam: Normal appearance Pupil Exam: NORMAL ACCOMODATION - ENT Exam ENT Exam: Mucous Membranes Moist, Normal Exam - Neck Exam Neck Exam: Normal Inspection - Respiratory Exam Respiratory Exam: Clear to Ausculation Bilateral, NORMAL BREATHING PATTERN - Cardiovascular Exam Cardiovascular Exam: REGULAR RHYTHM, +S1, +S2 - GI/Abdominal Exam GI & Abdominal Exam: Soft, Normal Bowel Sounds - Back Exam Back Exam: NORMAL INSPECTION - Neurological Exam Neurological Exam: Alert, Awake, Oriented x3 - Skin Skin Exam: Normal Color, Warm Assessment and Plan - Assessment and Plan (Free Text) Assessment: Assessment: 1. S/P mechanical fall 2. Back pain 3. 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 Anemia 5. CKD sdtage III 6. A-Fib Plan : CT guided FNA of spine done. Specimen sent for cultures. Emperic meropenem, dapto started. ID following. Blood counts stable. renal : stable. start eliquis 5 mg BID tomorrow. A-Fib : HR controlled on current meds.
--- NOTE | 2017-07-02 22:26 | CP.PCM.PN ---
Subjective - Date & Time of Evaluation Date of Evaluation: 06/28/17 Time of Evaluation: 10:00 - Subjective Subjective: Comfortable in bed. Pain on movement. Cultures from FNA spine pending. Evaluated by neurosurgery. A-Fib rate controlled on current meds. Objective - Vital Signs/Intake and Output Vital Signs (last 24 hours): Temp Pulse Resp BP Pulse Ox 98.1 F 79 18 106/42 L 94 L 07/01/17 16:00 07/01/17 16:00 07/01/17 16:00 07/01/17 16:00 07/01/17 16:00 - Labs Labs: 06/30/17 07:00 06/30/17 07:00 PT 14.0 Seconds (9.9-11.8) H 06/26/17 06:40 INR 1.30 (0.93-1.08) H 06/26/17 06:40 APTT 29.9 Seconds (23.7-30.8) 06/26/17 06:40 - Constitutional Appears: Chronically Ill - Head Exam Head Exam: ATRAUMATIC, NORMAL INSPECTION, NORMOCEPHALIC - Eye Exam Eye Exam: Normal appearance Pupil Exam: NORMAL ACCOMODATION - ENT Exam ENT Exam: Mucous Membranes Moist - Neck Exam Neck Exam: Full ROM, Normal Inspection - Respiratory Exam Respiratory Exam: Clear to Ausculation Bilateral, NORMAL BREATHING PATTERN - Cardiovascular Exam Cardiovascular Exam: REGULAR RHYTHM, +S1, +S2 - GI/Abdominal Exam GI & Abdominal Exam: Soft, Normal Bowel Sounds - Extremities Exam Extremities Exam: Normal Capillary Refill, Normal Inspection - Back Exam Back Exam: NORMAL INSPECTION - Neurological Exam Neurological Exam: Alert, Normal Gait, Oriented x3 - Psychiatric Exam Psychiatric exam: Normal Affect - Skin Skin Exam: Normal Color, Warm Assessment and Plan - Assessment and Plan (Free Text) Assessment: Assessment: 1. S/P mechanical fall 2. Back pain 3. 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 Anemia 5. CKD sdtage III 6. A-Fib Plan : Cultures from FNA pending. ON patrick, dapto as per ID. Hb/Hct stable. Back pain controlled with current meds. Renal : stable. heart rate controlled current meds. anticoagulation with eliquis to continue.
--- NOTE | 2017-07-02 22:32 | CP.PCM.PN ---
Subjective - Date & Time of Evaluation Date of Evaluation: 06/29/17 Time of Evaluation: 11:00 - Subjective Subjective: Comfortable in bed. Back Pain on getting up from bed. No fever, cough. Cultures from FNA back pending. no baldder/bowel disturbance. Moving all limbs. Objective - Vital Signs/Intake and Output Vital Signs (last 24 hours): Temp Pulse Resp BP Pulse Ox 98.1 F 79 18 106/42 L 94 L 07/01/17 16:00 07/01/17 16:00 07/01/17 16:00 07/01/17 16:00 07/01/17 16:00 - Labs Labs: 06/30/17 07:00 06/30/17 07:00 PT 14.0 Seconds (9.9-11.8) H 06/26/17 06:40 INR 1.30 (0.93-1.08) H 06/26/17 06:40 APTT 29.9 Seconds (23.7-30.8) 06/26/17 06:40 - Constitutional Appears: Well, Non-toxic - Head Exam Head Exam: ATRAUMATIC, NORMAL INSPECTION, NORMOCEPHALIC - Eye Exam Eye Exam: Normal appearance Pupil Exam: NORMAL ACCOMODATION - ENT Exam ENT Exam: Mucous Membranes Moist, Normal Exam - Neck Exam Neck Exam: Normal Inspection - Respiratory Exam Respiratory Exam: Clear to Ausculation Bilateral, NORMAL BREATHING PATTERN - Cardiovascular Exam Cardiovascular Exam: REGULAR RHYTHM, +S1, +S2 - GI/Abdominal Exam GI & Abdominal Exam: Soft, Normal Bowel Sounds - Extremities Exam Extremities Exam: Normal Capillary Refill, Normal Inspection - Back Exam Back Exam: NORMAL INSPECTION - Neurological Exam Neurological Exam: Alert, Awake, CN II-XII Intact, Oriented x3 - Psychiatric Exam Psychiatric exam: Normal Affect - Skin Skin Exam: Normal Color, Warm Assessment and Plan - Assessment and Plan (Free Text) Assessment: 1. S/P mechanical fall 2. Back pain 3. 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 Anemia 5. CKD sdtage III 6. A-Fib Plan : Cultures from FNA showed peseudomonas. . ON patrick, dapto as per ID. DC dapto. Hb/Hct stable. Back pain controlled with current meds. Renal : stable. heart rate controlled current meds. anticoagulation with eliquis to continue. Discharge to [facility] tomorrow on IV meropenem as per ID.
--- NOTE | 2017-07-19 01:16 | DS ---
This is an 81-year-old male who came into the hospital, was found to have osteomyelitis of L2, L3 and L4. The patient was placed on IV antibiotics and discharged to [facility] for further IV antibiotics. The patient had been on daptomycin. The patient was followed by ID. Please see the note dictated on 07/01/2017 for details. Pardeep Jorge MD
== END 2017-07-01 17:57 | DRG 478 ==
LOC: ED 21:02 → ERH 06-24 02:06 → 5RNO 06-24 04:57 → OBSVTOIN 06-25 16:52
PROVIDERS: ADMIT Internal Medicine Medical Oncology; ATTEND Internal Medicine Medical Oncology
PROC: 0Q903ZX Drainage of Lumbar Vertebra, Percutaneous Approach, Diagnostic (ICD-10-PCS; principal; 2017-06-27 13:00)
DX: M46.46 Discitis, unspecified, lumbar region (principal); M46.26 Osteomyelitis of vertebra, lumbar region; E11.22 Type 2 diabetes mellitus with diabetic chronic kidney disease; E11.69 Type 2 diabetes mellitus with other specified complication; I13.0 Hypertensive heart and chronic kidney disease with heart failure and stage 1 through stage 4 chronic kidney disease, or unspecified chronic kidney disease; I50.9 Heart failure, unspecified; I48.91 Unspecified atrial fibrillation; N18.3 Chronic kidney disease, stage 3 (moderate); D64.9 Anemia, unspecified; I25.10 Atherosclerotic heart disease of native coronary artery without angina pectoris; W05.0XXA Fall from non-moving wheelchair, initial encounter; E78.5 Hyperlipidemia, unspecified; G89.29 Other chronic pain; F02.80 Dementia in other diseases classified elsewhere, unspecified severity, without behavioral disturbance, psychotic disturbance, mood disturbance, and anxiety; G30.9 Alzheimer's disease, unspecified; R33.9 Retention of urine, unspecified; K59.00 Constipation, unspecified; B96.5 Pseudomonas (aeruginosa) (mallei) (pseudomallei) as the cause of diseases classified elsewhere; R80.9 Proteinuria, unspecified; N41.9 Inflammatory disease of prostate, unspecified; E66.9 Obesity, unspecified; Z68.35 Body mass index [BMI] 35.0-35.9, adult; Z79.01 Long term (current) use of anticoagulants; Y92.129 Unspecified place in nursing home as the place of occurrence of the external cause; Z87.440 Personal history of urinary (tract) infections; Z95.5 Presence of coronary angioplasty implant and graft; Z87.442 Personal history of urinary calculi; Z79.82 Long term (current) use of aspirin; Z87.891 Personal history of nicotine dependence

== ENCOUNTER 2017-11-08 08:33 | Day surgery (SDC) | payer MEDICARE, BC ==
[2017-11-06 13:44] VITALS: BMI 29.9
[2017-11-08] MEDS ORDERED: Propofol 10 mg/ml Inj (20 ML) ONE (09:15)
[2017-11-08] MEDS ORDERED: Midazolam 2 MG/2 ML VIAL ONE ×2 (09:16→11:11)
[2017-11-08] MEDS ORDERED: Gadodiamide 287 MG/ML VIAL (20ML) IV ONE (10:52)
[2017-11-08] MEDS ORDERED: Sodium Chloride 0.9% 1,000 ML IV SCH (11:00)
[2017-11-08 11:41] VITALS: O2SAT 98
[2017-11-08 12:19] VITALS: BP 118/62; PULSE 77; RESP 18; TEMP 97.8
--- NOTE | 2017-11-09 11:37 | MRI ---
PROCEDURE: MR LUMBAR SPINE WITH AND WITHOUT CONTRAST HISTORY: ? OSTEO/DISKITIS COMPARISON: 08/27/2017 MRI TECHNIQUE: Multiecho multiplanar sequences were performed through the lumbar spine with and without the use of intravenous contrast. 20 cc of Omniscan FINDINGS: Normal lumbar lordosis. Vertebral body heights are preserved. Marrow signal unremarkable. Conus medullaris unremarkable at the level of T12 Paraspinal soft tissues are unremarkable. No abnormal enhancement. T12-L1: No disc herniation, spinal canal stenosis or neural foraminal narrowing. L1-2: No disc herniation, spinal canal stenosis or neural foraminal narrowing. L2-3: Severe disc degeneration with loss of disc height. Mild disc bulge. There is enhancement of the vertebral end plates. This finding is stable in appearance L3-4: There is some improvement in the findings of discitis at L3-4. There is decreased enhancement of the adjacent vertebral bodies and decreased fluid within the disc space. There is persistent enhancement of the vertebral endplates. There is moderate central stenosis and foraminal stenosis. There is a small amount of epidural enhancement which is unchanged. L4-5: There is disc degeneration and facet arthropathy with moderate stenosis L5-S1: Disc degeneration without stenosis OTHER FINDINGS: None. IMPRESSION: Improvement in findings of discitis and osteomyelitis at L3-4. See comments
== END 2017-11-08 14:25 | disposition designated cancer center or children's hospital (05) ==
LOC: MRISED 08:33
PROVIDERS: ATTEND Internal Medicine
DX: M46.46 Discitis, unspecified, lumbar region (principal); M46.26 Osteomyelitis of vertebra, lumbar region; I25.10 Atherosclerotic heart disease of native coronary artery without angina pectoris; E11.9 Type 2 diabetes mellitus without complications; Z79.84 Long term (current) use of oral hypoglycemic drugs
CPT/HCPCS: 72158; J2250; J2704; J3010; J7040

== ENCOUNTER 2019-01-08 06:45 | Outpatient (CLI) | payer MEDICARE, BC | END 2019-01-08 06:46 | disposition home or self-care (01) | LOC: CARDIO 06:45 ==

== ENCOUNTER 2019-02-03 06:49 | Day surgery (SDC) | payer MEDICARE, BC ==
[2019-01-27 11:57] VITALS: BMI 34.8
[2019-02-03 07:44] LABS: BASO # 0.02 K/mm3 (0.0-2.0); BASO % 0.3 % (0.0-3.0); EOS # 0.1 (0.0-0.7); EOS % 2.4 % (1.5-5.0); HEMOGLOBIN 14.1 g/dL (14.0-18.0); LYMPH # 1.4 (1.2-3.4); LYMPH % 23.4 % (22.0-35.0); MEAN CELL VOLUME 94.7 fl (80.0-105.0); MEAN CORPUSCULAR HEMOGLOBIN 31.1 pg (25.0-35.0); MEAN CORPUSCULAR HGB CONC 32.9 g/dl (31.0-37.0); MEAN PLATELET VOLUME 9.9 fl (7.0-11.0); MONO # 0.5 (0.1-0.6); MONO % 8.1 % (1.0-6.0); RBC 4.53 10^6/uL (3.5-6.1); RED CELL DISTRIBUTION WIDTH 13.8 % (11.5-14.5)
[2019-02-03 07:47] LABS: BLOOD UREA NITROGEN 16 mg/dL (7-21); CALCIUM 9.3 mg/dL (8.4-10.5); GFR NON-AFRICAN AMERICAN 58; HDL CHOLESTEROL 27 mg/dL (29-60)
[2019-02-03 07:48] LABS: INR 1.33; PARTIAL THROMBOPLASTIN TIME 36.5 Seconds (26.9-38.3)
[2019-02-03 07:58] LABS: LDL CHOLESTEROL 85 mg/dL (0-129)
[2019-02-03] MEDS ORDERED: Verapamil 2 ML ONE (08:41)
[2019-02-03] MEDS ORDERED: Lidocaine PF 2% (5 ml) Inj (For Cardiac Arrhy) ONE (08:41)
[2019-02-03] MEDS ORDERED: Nitroglycerin 50mg in D5W 50 MG/250 ML BOTTLE IV ONE (08:42)
[2019-02-03] MEDS ORDERED: Iodixanol 320 MG/ML 200 ML BOTTLE IV ONE (08:42)
--- NOTE | 2019-02-03 08:44 | HP ---
DATE: 01/31/2019 REASON FOR ADMISSION: Left heart cath, possible angioplasty. BRIEF CLINICAL HISTORY: This is an 83-year-old male with past medical history significant for aortic stenosis, hypertension, diabetes, obesity, increased body mass index who had recently abnormal stress test because of shortness of breath, found to be abnormal. The patient is scheduled for elective cardiac cath, possible angioplasty. PAST MEDICAL HISTORY: Significant for diabetes, hypertension, hyperlipidemia, atrial fibrillation, aortic stenosis, obesity. CURRENT MEDICATIONS: The patient is taking Eliquis 5 mg twice a day, last dose 01/27/2019, oxycodone, Percocet 2.5/325 mg, acetaminophen, metoprolol succinate 50 mg daily, Lasix 40 mg daily, potassium chloride Klor 10 mEq daily, Proscar that is finasteride 5 mg daily, baby aspirin 81 mg daily, Flomax 0.4 mg daily, Januvia 100 mg daily p.o. and Lyrica 50 mg p.o. b.i.d. and Metformin Glucophage 500 mg p.o. b.i.d. ALLERGIES: NO KNOWN DRUG ALLERGIES. RECENT CARDIAC WORKUP FOLLOWS: The patient had a nuclear stress test with IV Lexiscan dated 01/08/2019, that shows abnormal myocardial perfusion study, ejection fraction 70%, partially reversible apical defect suggestive of ischemia, normal gated wall motion. When comparisons were made from a previous study dated 05/25/2016, the apical defect appears new and more prominent in the current study. REVIEW OF SYSTEMS: As per HPI. PHYSICAL EXAMINATION GENERAL: Height of the patient 5 feet 11 inches, weight of the patient 250 pounds, body mass index 34.9 kg per m2. VITAL SIGNS: Temperature afebrile, heart rate 60, blood pressure 130/80. HEENT: PERRLA. Extraocular muscles intact. NECK: Supple. No carotid bruit or thyromegaly. CHEST: Clear to auscultation. HEART: S1, S2 regular. ABDOMEN: Soft. EXTREMITIES: Clubbing and cyanosis negative. LABORATORY DATA: Blood workup pending. The patient's last ZACH dated 03/21/2013, when the patient was in Afib and patient was ZACH cardioverted. At that time, no valvular aortic stenosis noted. Recent echo shows [id number] aortic stenosis. IMPRESSION: An 83-year-old male with past medical history significant for diabetes, hypertension, hyperlipidemia, morbid obesity, acpl-op-pvovrzni aortic stenosis, recent stress test abnormal apical ischemia when compared to the image from the previous stress test dated 2016, 05/25/2016, 05/23/2016, new ischemic changes. The patient is scheduled for elective cardiac catheterization, possible angioplasty. Risks, benefits and alternatives discussed with the patient including risks, but not limited to myocardial infarction, , bleeding, limb ischemia, perforation of the artery. Patient agreed. We will proceed for cardiac catheterization. Further recommendations depending upon the findings of the catheterization. Patient agreed. We will proceed for the cardiac catheterization. We will review the lab when it is available and if it is acceptable, we will load patient with Plavix 300 mg and proceed for cardiac catheterization. Further recommendation after cardiac catheterization and if any significant disease found we will proceed for angioplasty as well. Thank you Dr. Alfaro/Dr. Washington for providing us the opportunity in taking care of the patient Michael villafuerte. Carolyn Odonnell MD ELVIN
[2019-02-03] MEDS ORDERED: Midazolam 2 MG/2 ML VIAL ONE ×2 (08:56→09:23)
[2019-02-03] MEDS ORDERED: Eptifibatide 20 mg/10mL Inj IVP ONE (09:21)
[2019-02-03] MEDS ORDERED: Morphine 2 mg/ml ISec ONE (09:38)
[2019-02-03] MEDS ORDERED: Sodium Chloride 0.9% 1,000 ML IV SCH (10:30)
--- NOTE | 2019-02-03 11:10 | CPOSTOP ---
DATE: 02/03/2019 CARDIOVASCULAR LAB POST PROCEDURE NOTE PHYSICIAN: Carolyn Odonnell MD. LENDING ADVISOR: Cecile instructional support technician. TYPE OF ANESTHESIA: Moderate conscious sedation. Total 2 mg of Versed, 100 of fentanyl and 2 mg of morphine given periodically. Started 1 mg of Versed and 50 of fentanyl. PRE-PROCEDURE DIAGNOSES: Unstable angina, abnormal stress test, aortic stenosis. PROCEDURES PERFORMED: !- Left heart catheterization, stenting of left anterior descending with drug eluting stent, 2- stenting of mid right coronary artery with drug eluting stent. 3- [facility] FINDINGS: 1. No significant aortic stenosis. 2. Two vessel coronary artery disease, preserved LV function. FINAL DIAGNOSES: Two vessels coronary artery disease. No aortic stenosis. POST-PROCEDURE CONDITION: The patient's condition is stable. VASCULAR ACCESS SITE: Left radial. CLOSURE DEVICE: TR Band. TOTAL RADIATION DOSE: 79591 milligray unit. CUMULATIVE RADIATION DOSE: 3584 milligray unit. FLUORO TIME: 15.6 minutes. Carolyn Odonnell MD MTDD
[2019-02-03 12:01] VITALS: RESP 18
[2019-02-03 14:15] LABS: BASO # 0.01 K/mm3 (0.0-2.0); BASO % 0.2 % (0.0-3.0); EOS % 0.5 % (1.5-5.0); HEMOGLOBIN 12.7 g/dL (14.0-18.0); LYMPH # 0.9 (1.2-3.4); MEAN CELL VOLUME 95.2 fl (80.0-105.0); MEAN CORPUSCULAR HEMOGLOBIN 30.5 pg (25.0-35.0); MONO # 0.4 (0.1-0.6); MONO % 6.6 % (1.0-6.0); RBC 4.17 10^6/uL (3.5-6.1); RED CELL DISTRIBUTION WIDTH 13.8 % (11.5-14.5); WHITE BLOOD COUNT 6.6 10^3/uL (4.5-11.0)
[2019-02-03] MEDS ORDERED: Bacitracin 500 Units/gm Oint Foilpak UD ONE (14:49)
[2019-02-03 14:52] LABS: BLOOD UREA NITROGEN 15 mg/dL (7-21); CALCIUM 8.6 mg/dL (8.4-10.5); GFR NON-AFRICAN AMERICAN 58
--- NOTE | 2019-02-03 16:04 | CARD ---
APPROVED REPORT Date of service: 02/03/2019 EKG Measurement Heart [id number] <Conclusion> Atrial fibrillation Nonspecific ST and T wave abnormality Abnormal ECG
--- NOTE | 2019-02-03 16:10 | CARD ---
APPROVED REPORT Date of service: 02/03/2019 EKG Measurement Heart [id number] <Conclusion> Atrial fibrillation Nonspecific ST abnormality Abnormal ECG
[2019-02-03 18:44] VITALS: BP 122/77; PULSE 72; TEMP 97.9; O2SAT 97
--- NOTE | 2019-02-03 20:36 | CARD ---
APPROVED REPORT Date of service: 02/03/2019 Procedure(s) performed: Left Heart Catheterization PTCA with Stenting of mid LAD with STACI PTCA with Stenting of Mid RCA HISTORY The patient is a 83 year-old male with a history of : most recent EF: 70%. (EF Method: RADIONUCLIDE), diabetes mellitus with oral treatment , previous diagnostic cath, tobacco history() : The patient is a former smoker , hypertension , dyslipidemia , Hx of Morbid obesity and ch. A fib on Eliquis and Asa and had an abnormal stress test hermes and apical ischemia. INDICATION The indication(s) include : positive stress test. CASE TECHNIQUE The patient was brought electively to the Cardiac Catheterization Laboratory in a fasting state and was prepped and draped in a sterile manner. The left wrist was infiltrated with 2% Lidocaine subcutaneous anesthesia. A sheath was inserted into the left radial artery without difficulty. Coronary angiography was performed using coronary diagnostic catheters. The left coronary system was accessed and visualized with a Diagnostic ,5F JL 4 CATH DXT 100 CM catheter. The right coronary system was accessed and visualized with a Diagnostic , 5F JR 4 CATH DXT 100 CM catheter. The left ventricle was accessed and visualized with a 5F PIGTAIL 145 CATH DXT 110 CM catheter. Left ventricular/Aortic Valve gradient assessed on pullback. Left ventriculogram was performed in IZAGUIRRE projection. Closure device was deployed with a Fr TR Band (Large) without any complications. The patient tolerated the procedure well and there were no complications associated with the procedure. Vessel Analysis The patient's coronary anatomy is right dominant ( super dominant). The left main coronary artery is a medium size vessel with diffuse calcification noted throughout this vessel and without significant stenosis. The left main trifurcates to the left anterior descending, circumflex, and ramus. The left anterior descending artery is a medium size vessel with diffuse calcification noted throughout this vessel and with significant stenosis. There is a 90% stenosis in the mid segment. The first diagonal branch is a small size vessel with diffuse calcification noted throughout this vessel and without significant stenosis. The second diagonal branch is a medium size vessel with diffuse calcification noted throughout this vessel and without significant stenosis. The circumflex artery is a medium size vessel with diffuse calcification noted throughout this vessel and without significant stenosis. The first obtuse marginal branch is a small size vessel with diffuse calcification noted throughout this vessel and without significant stenosis. The ramus intermedius artery is a medium size vessel with diffuse calcification noted throughout this vessel and without significant stenosis. intra myocardial course ( myocardial bridge). The right coronary artery is a large size vessel with diffuse calcification noted throughout this vessel and with significant stenosis. There is a 80% stenosis in the mid segment. The right posterior descending artery is a large size vessel with diffuse calcification noted throughout this vessel and without significant stenosis. The right posterolateral branch is a medium size vessel with diffuse calcification noted throughout this vessel and without significant stenosis. Left Ventricle The left ventricle is normal in size with normal contractility. There was no cardiomyopathy. The left ventricular ejection fraction is estimated to be 55-60%. The left ventricular end diastolic pressure is 12 mmHg. There was no gradient across the aortic valve upon pullback. No gradiet across Aortic valve. PCI Technique Lesion Anticoagulation was achieved with Heparin and Integrellin Boluses. Percutaneous coronary intervention was performed on the mid left anterior descending artery segment. The lesion stenosis prior to intervention was 90% with CANDI 2 flow. A 6 Fr XB 3.5 Guide Catheter was used to engage the ostium. A 0.014 x 182 cm Choice PT Extra Support Interventional Guidewire was used to cross the lesion. BALLOON DILATION A Balloon catheter 2.0 x 8 mm Mini Trek RX was inserted and inflated up to 8.00atm for 8seconds. STENT DEPLOYMENT A drug-eluting stent STENT RESOLUTE LESVIA 2.25 X12 was inserted and inflated up to 12.00atm for 9seconds. Final angiography reveals 0 % stenosis with CANDI 3 flow. PCI Technique Lesion 2 Percutaneous Coronary Intervention was performed on the mid right coronary artery. The lesion stenosis prior to intervention was 80% with CANDI 2 flow. A 6 Fr JR 4 Guide Catheter was used to engage the ostium. A Luge 182 Interventional Guidewire was used to cross the lesion. BALLOON DILATION A Balloon catheter 4.0 x 8 mm Trek RX was inserted and inflated up to 8.00atm for 40seconds. STENT DEPLOYMENT A drug-eluting stent STENT RESOLUTE LESVIA 4.5 X 12 was inserted and inflated up to 20.00atm for 8seconds. Final angiography reveals 0 % stenosis with CANDI 3 flow. 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 Preserved LV FX, EF_55-60%, EDP-12 mmof Hg. NO GRADIENT ACROSS AORTIC VALVE, though it is sclerotic and a little difficult to cross but NO Signifiacnt ( By ECHO mild to Moderate ). Successful PTCA with STACI of LAD and RCA. Recommendations Cardiac Rehabilitation Referral Aggressive Medical TherapyCardiac Risk Reduction Program Weight Loss Reduction Program Continue Plavix and Eliquis for one year the Baby ASA and eliquis as before ( Dc ASA for Now, while on Plavix and eliquis, B/c of increase risk of bleeding). CC; drs. Alfaro/ Padmini.
== END 2019-02-03 18:30 | disposition home or self-care (01) ==
LOC: CATH 06:49 → 2RSO 10:33 → CATH 18:30
PROVIDERS: ATTEND Internal Medicine Cardiovascular Disease
DX: I25.110 Atherosclerotic heart disease of native coronary artery with unstable angina pectoris (principal); R94.39 Abnormal result of other cardiovascular function study; I35.0 Nonrheumatic aortic (valve) stenosis; E11.9 Type 2 diabetes mellitus without complications; E66.01 Morbid (severe) obesity due to excess calories; E78.5 Hyperlipidemia, unspecified; I10 Essential (primary) hypertension; I48.91 Unspecified atrial fibrillation; Z79.01 Long term (current) use of anticoagulants; Z79.84 Long term (current) use of oral hypoglycemic drugs; Z79.899 Other long term (current) drug therapy; Z87.891 Personal history of nicotine dependence; Z68.34 Body mass index [BMI] 34.0-34.9, adult
CPT/HCPCS: 36415; 80048; 80061; 82948; 85025; 85175; 85610; 85730; 86850; 86900; 93005; 93458; 93567; 99152; 99153; C1725; C1769 ×4; C1874 ×2; C1887 ×2; C2629; C9600; C9601; J1327; J1644 ×2; J2250; J2270; J2405; J3010; J7030; Q9966